=== PATIENT | female | born 1995 | race Caucasian/White ===

== ENCOUNTER → 2019-07-27 14:03 | Outpatient (CLI) | payer OTHER, MEDICAID, SELFPAY ==
[2019-07-27 13:37] VITALS: BMI 29.6
[2019-07-27 14:07] LABS: Mucous, Urine 0 SEEN /hpf (<or=2+)
[2019-07-27 15:03] LABS: Absolute Lymphocyte Count 3.61 X10^3/uL (0.83-4.51); Absolute Neutrophil Count 6.6 X10^3/uL (2.0-7.7); Basophil# 0.02 X10^3/uL; Basophil% 0.2 % (0-1); Eosinophil# 0.13 X10^3/uL; Eosinophils% 1.1 % (0-5); Hematocrit 38.6 % (37-47); Hemoglobin 12.2 g/dL (12.0-15.0); Lymphocyte # 3.61 X10^3/ul (4.0); Lymphocyte % 30.4 % (19-41); Mean Corp Hgb Conc 31.6 g/dL (32-36); Mean Corpuscular Hgb 27.3 pg (27.0-32.0); Mean Corpuscular Volume 86.4 fL (81-99); Mean Platelet Vol. 11.4 fl (6.2-12.0); Monocyte# 1.43 X10^3/uL; Monocyte% 12.1 % (0-10); NRBC Flagged by Analyzer 0 % (0-5); Neutrophil # 6.64 X10^3/uL (2.7-7.7); Neutrophil % 55.9 % (47-70); Platelet Count 322 K/mm3 (150-450); RBC Distribution Width CV 13.1 % (11.6-14.6); RBC Distribution Width SD 41.1 fl (35.1-43.9); Red Blood Count 4.47 M/mm3 (4.2-5.4); White Blood Count 11.9 K/mm3 (4.4-11.0)
[2019-07-27 15:09] LABS: Color, Urine Yellow (Yellow); Glucose, Dipstick Normal (Normal); Ketone-Dipstick Negative (Negative); Leukocyte Esterase-Dipstick 25 /ul (Negative); Nitrite-Dipstick Negative (Negative); Occult Blood-Urine 150 /ul (Negative); Protein-Dipstick 15 mg/dl (Negative); Specific Gravity, Urine 1.025 (1.002-1.030); Urine Bilirubin Dipstick Negative (Negative); Urine Clarity Sl. Cloudy (Clear); Urine Urobilinogen 1 mg/dl (Normal)
[2019-07-27 15:18] LABS: Bacteria 2+ /hpf (None Seen); Red Blood Cells-Urine 10-25 SEEN /hpf (0-5); Squamous Epithelial Cells - UA 0-5 SEEN /hpf (5-10); White Blood Cells 0-5 SEEN /hpf (0-5)
[2019-07-27 15:32] LABS: ALB/GLOB Ratio 0.7 RATIO (0.9-2.4); AST(SGOT) 14 U/L (15-37); Alanine Aminotransfer ALT/SGPT 23 U/L (13-56); Albumin, Serum 3.2 g/dL (3.2-5.0); Alkaline Phosphatase 66 U/L (45-117); Anion Gap 4 (5-15); BUN 8 mg/dL (7-18); BUN/Creat Ratio 12.1 RATIO (10-20); Calcium,Total 9.1 mg/dL (8.5-10.1); Chloride 106 mmol/L (98-107); Creatinine, Serum 0.66 mg/dL (0.55-1.02); EST Glomerular Filtration Rate 116 mL/min (>60); Est Glom Filt Rate - Afr Amer 141 mL/min (>60); Globulin 4.4 g/dL (2.2-4.2); Glucose 86 mg/dL (74-106); Potassium 3.8 mmol/L (3.5-5.1); Protein, Total 7.6 g/dL (6.4-8.2); Sodium Level 139 mmol/L (136-145); T4 Free Direct 0.86 ng/dL (0.76-1.46); Thyroid Stim Hormone (TSH) 1.85 uIU/mL (0.358-3.74)
== END ==
PROVIDERS: PCP Internal Medicine; Referring Provider Internal Medicine; Visit Provider Internal Medicine
DX: L73.2 Hidradenitis suppurativa (principal); F41.9 Anxiety disorder, unspecified; F32.9 Major depressive disorder, single episode, unspecified; F90.9 Attention-deficit hyperactivity disorder, unspecified type; R35.0 Frequency of micturition
CPT/HCPCS: 36415; 80053; 81001; 84439; 84443; 85025

== ENCOUNTER → 2019-08-03 16:20 | Outpatient (CLI) | payer OTHER, MEDICAID, SELFPAY ==
[2019-07-27 16:46] VITALS: BMI 28.8
[2019-08-03 16:27] LABS: Mucous, Urine 0 SEEN /hpf (<or=2+); White Blood Cells 0 SEEN /hpf (0-5)
[2019-08-03 16:47] LABS: Color, Urine Yellow (Yellow); Glucose, Dipstick Normal (Normal); Ketone-Dipstick Negative (Negative); Leukocyte Esterase-Dipstick Negative /ul (Negative); Nitrite-Dipstick Negative (Negative); Occult Blood-Urine 10 /ul (Negative); Protein-Dipstick Negative (Negative); Urine Bilirubin Dipstick Negative (Negative); Urine Clarity Sl. Cloudy (Clear); Urine Urobilinogen Normal (Normal)
[2019-08-03 17:01] LABS: Bacteria RARE /hpf (None Seen); Red Blood Cells-Urine 0-5 SEEN /hpf (0-5); Squamous Epithelial Cells - UA 0-5 SEEN /hpf (5-10)
== END ==
PROVIDERS: PCP Internal Medicine; Referring Provider Internal Medicine; Visit Provider Internal Medicine
DX: R31.9 Hematuria, unspecified (principal)
CPT/HCPCS: 81001

== ENCOUNTER → 2021-03-30 15:32 | Outpatient (CLI) | payer OTHER, MEDICAID, SELFPAY ==
[2021-03-30 16:44] LABS: Absolute Lymphocyte Count 3.37 X10^3/uL (0.83-4.51); Absolute Neutrophil Count 10.9 X10^3/uL (2.0-7.7); Basophil# 0.04 X10^3/uL; Basophil% 0.3 % (0-1); Eosinophil# 0.12 X10^3/uL; Eosinophils% 0.8 % (0-5); Hematocrit 38.1 % (37-47); Hemoglobin 12.1 g/dL (12.0-15.0); Lymphocyte # 3.37 X10^3/ul (0.83-4.51); Lymphocyte % 21.2 % (19-41); Mean Corp Hgb Conc 31.8 g/dL (32-36); Mean Corpuscular Hgb 26.8 pg (27.0-32.0); Mean Corpuscular Volume 84.5 fL (81-99); Mean Platelet Vol. 10.7 fl (6.2-12.0); Monocyte# 1.44 X10^3/uL; NRBC Flagged by Analyzer 0 % (0-5); Neutrophil % 68.4 % (47-70); Platelet Count 405 K/mm3 (150-450); RBC Distribution Width CV 13.2 % (11.6-14.6); RBC Distribution Width SD 41.1 fl (35.1-43.9); Red Blood Count 4.51 M/mm3 (4.2-5.4); White Blood Count 15.9 K/mm3 (4.4-11.0)
[2021-03-30 17:03] LABS: ALB/GLOB Ratio 0.7 RATIO (0.9-2.4); AST(SGOT) 22 U/L (15-37); Alanine Aminotransfer ALT/SGPT 20 U/L (13-56); Albumin, Serum 3.1 g/dL (3.2-5.0); Alkaline Phosphatase 69 U/L (45-117); Anion Gap 5 (5-15); BUN 9 mg/dL (7-18); Calcium,Total 8.9 mg/dL (8.5-10.1); Chloride 104 mmol/L (98-107); Cholesterol 230 mg/dL (200); Creatinine, Serum 0.69 mg/dL (0.55-1.02); EST Glomerular Filtration Rate 109 mL/min (>60); Est Glom Filt Rate - Afr Amer 132 mL/min (>60); Globulin 4.5 g/dL (2.2-4.2); Glucose 119 mg/dL (74-106); High Density Lipoprotein 40 mg/dL; Protein, Total 7.6 g/dL (6.4-8.2); Sodium Level 138 mmol/L (136-145); Triglycerides 205 mg/dL; Very Low Density Lipoprotein 41 mg/dL (5-40)
== END ==
PROVIDERS: PCP Internal Medicine; Referring Provider Internal Medicine; Visit Provider Internal Medicine
DX: F41.9 Anxiety disorder, unspecified (principal); F32.9 Major depressive disorder, single episode, unspecified; E66.3 Overweight
CPT/HCPCS: 36415; 80053; 80061; 85025

== ENCOUNTER 2021-08-06 16:55 | Observation (INO) | payer MEDICAID, SELFPAY ==
[2021-08-06] VITALS (13 sets, daily range): BP systolic 88–127; BP diastolic 55–85; PULSE 73–110; RESP 14–18; TEMP 36.1–37.2; O2SAT 93–99; BMI 29.7
--- NOTE | 2021-08-06 | HID_PTH ---
PATIENT: MIGUEL PYLE LOC: MS3 U#:[id number] AGE/SX: 26/F ROOM: MS316 RE08/06/[address]: Dr. Elvis Littlejohn MD : 1995 BED: 1 DIS: 08/07/2021 SPEC #: [id number] RECD: 08/06/21 15:53 STATUS: OFE REDottie #: [id number] TITO: 08/06/21 00:[address]: Elvis Littlejohn DEPT: SURGICAL PATHOLOGY RECD BY: Enoc Shipley ENTERED: 08/07/21 10:39 SP TYPE: Hidradenit MYAH DR: Dr. Blanche Harmon MD Tissues: Axilla, NOS Procedures: Surgery Specimen Level III HEADER OPERATION: Surgical preparation axilla with excision hidradenitis PRE-OP DIAGNOSIS: Right axilla hidradenitis TISSUE SUBMITTED: Right axilla hidradenitis MICROSCOPIC DIAGNOSIS Skin and soft tissue of right axilla, excision: Consistent with hidradenitis. AM:charlotte 08/08/2021 MICROSCOPIC DESCRIPTION Slides are reviewed. GROSS DESCRIPTION Received in fixative is one container labeled with the patient's name and designated right axilla hidradenitis. The specimen consists of a V-shaped fragment of light anne skin with attached anne-yellow fibrofatty tissue measuring 9.5 x 9 cm and excised to a depth of 2.5 cm. Serial sections do not reveal mass lesions. Toll Bridge Operator sections are submitted in one cassette. / AM:charlotte 08/07/2021 TC:5 CPT: 88971
--- NOTE | 2021-08-06 00:31 | HP.PCM_ITS ---
History and Physical Date of Admission: 08/06/21 HISTORY OF PRESENT ILLNESS 26 year old female presents for a recent flare of hidradenitis of her right axilla, and bilateral inguinal, mons pubis extending onto labia areas. She has a history of excision of her right axilla hidradenitis in 11/04, and excision of left axillary hidradenitis 12/04. She was last seen 2 years ago for a right axilla flare that was treated with antibiotics. She stopped using Augmentin and started on Clindamycin for 10 days. She saw an improvement in her symptoms of the mons pubis area. Her right axilla area where she had the firmness, opened and started to drain. She states she has been doing the sitz baths daily to help with the inguinal/mons pubis areas. She comes in today for further evaluation and treatment. PAST MEDICAL HISTORY ADHD (attention deficit hyperactivity disorder) Anxiety and depression Axillary hidradenitis suppurativa FAS ( alcohol syndrome) Health care maintenance History of stress test Leukocytosis multiple mental health dx Open wound Over weight Recurrent infections Stiffness of right shoulder joint Vulval hidradenitis suppurativa PAST SURGICAL HISTORY H/O oral surgery Hidradenitis axillaris History of adenoidectomy History of incision and drainage History of tonsillectomy ALLERGIES doxycycline codeine latex MEDICATIONS fluoxetine guanfacine bupropion HCl etonogestrel doxycycline hyclate FAMILY HISTORY Unknown No problems noted. SOCIAL HISTORY Smoking Status: Former smoker alcohol intake: current substance use type: does not use REVIEW OF SYSTEMS General - Denies fever, fatigue, and weight loss. Eyes - Denies cataracts and glaucoma. ENT - Denies nasal congestion and sore throat. Endocrine - Denies excessive thirst and urination. Skin - Denies skin cancer. Has a recent flare up hidradenitis right axilla and bilateral inguinal areas and vulval area. Right inguinal area is much more bothersome than her left side. The inguinal/mons pubis areas area improved after the clindamycin antibiotic but her right axilla has further ulceration and drainage with increased pain. Musculoskeletal - Denies joint pain, joint stiffness, weakness of muscles and joints, back pain, and arthritis. Neuro - Denies headaches. Cardiovascular - Denies chest pain, fatigue, and shortness of breath with e xertion. Psych - Denies anxiety and depression. Respiratory - Denies chronic cough and shortness of breath. Patient is former smoker. Gastrointestinal - Denies nausea, vomiting, diarrhea, and constipation. Hematologic - Denies abnormal bruising and bleeding. Genitourinary - Denies hematuria and urinary frequency. PHYSICAL EXAMINATION General - Alert and oriented. HEENT - PERRL. EOMI. Throat is clear. Neck - Supple and non-tender. No cervical adenopathy. Lungs- Clear to auscultation. Heart - Regular rate and rhythm. Abdomen - Soft and non distended. Has bilateral inguinal hidradenitis with less redness and induration with the antibiotics. There is some scabbing along with decreased drainage. There is decreased pain in this area. Vulva - There is bilateral vulval hidradenitis involving the genitocrural area extending to the labia and mons pubis area. Some scabbing. The mons pubis area has improved with the antibiotics. There is decreased drainage. There is decreased pain in this area. Extremities - FROM. No axillary adenopathy. Radial pulses are palpable. No inguinal adenopathy. Right axillary hidradenitis with new ulcer where the firmness previously was located, it is beefy pink and very tender to palpation. Persistent drainage noted. Area has worsening induration. Neuro - CN II-XII grossly intact. Psych - Normal mood and affect. ASSESSMENT 1. Right axilla hidradenitis. 2. Right inguinal hidradenitis. 3. Right vulval hidradenitis involving genitocrural area and mons pubis area. 4. Left inguinal hidradenitis. 5. Left vulval hidradenitis involving genitocrural area and mons pubis area 6. Former smoker. PLAN The recent flare up of hidradenitis in her bilateral inguinal area and bilateral vulval areas has improved with the antibiotics. She also is having a flare in her right axilla that has a firm area lateral to the breakout that is tender to palpation. Persistent drainage noted. Area has worsening induration. No fluctuance noted. She would benefit from excision of her hidradenitis. The most bothersome area would be done first. She states her right axilla has the most pain. Surgery would be done under general anesthesia with a surgical observation overnight stay in the hospital. Tissue would be sent to Pathology for analysis to rule out carcinoma [facility]. A positive culture will necessitate antibiotic therapy. The wound would be left open and will start postoperative wound care with the VAC or with daily Dakin's moistened gauze dressing changes. She completed her 10 day course of Clindamycin with a probiotic and showed improvement in the bilateral inguinal and the bilateral vulval areas involving the mons pubis and genitocrural crease extending to the labia. The right axilla area has worsening painful symptomatology. We will start her on Doxycycline twice daily until the surgery. She has taken this in the past with issues with nausea but she always took it with dairy products, which is contraindicated since it decreased absorption. She is willing to try Doxycycline again to see if this will help improve her symptoms. She will wait a week since she just completed the Clindamycin, but she will continue the probiotic during this time and start her Doxycycline in a week. She will continue daily sitz baths with Epsom salts. Patient was informed of the risks and complications of the procedure including alternatives to surgery. These were discussed with the patient personally. Patient voices understanding and wishes to proceed.necessary. Some of the risks and complications were included in a form from the [place] [employer]. Anticipate increased metabolic demands from the chronic infections. Encourage nutritional supplementation with protein to help the healing process. Followup after her surgery. We discussed the current risks associated with COVID-19. While it is understood that there is a community spread of COVID-19, the risk of curry COVID-19 while at [facility] ([facility]) is very low; however, the risk cannot be completely mitigated because of the community spread of the disease. We discussed in detail the risk of exposure to and/or potential harm posed by the COVID-19 virus with having a surgery/procedure at this time versus the risk of delaying the surgery/procedure. It is not possible to know either the risk of delaying the surgery or procedure or chance of getting an infection with perfect accuracy, but a joint decision was made to proceed at this time with the scheduled surgery/procedure as indicated on the consent form. Patient was notified that we will need to comply with any screening or testing [facility] wishes to perform or that surgery may be delayed for any positive results.
[2021-08-06] MEDS: Lactated Ringers 1,000 ML 15 ML IV ×2 (10:39→15:30)
[2021-08-06 10:48] LABS: Internal QC Validated? YES +Cl - CLEAR BKGD; Pregnancy, Urine Negative Negative
[2021-08-06] MEDS: Cefazolin 2 GM in 0.9% Normal Saline 100 ML IV (14:30)
[2021-08-06] MEDS: Lidocaine 1% /Epi 1:100 (50ml) 50 ML VIAL (14:55)
--- NOTE | 2021-08-06 16:01 | PCM.OPRPT ---
Problems Associated Problem List Diagnoses (1) Axillary hidradenitis suppurativa: (2) Former smoker: (3) Open wound of right axillary region with complication: Report of Operation Date of Procedure: 08/06/21 Pre-Operative Diagnosis: 1. Recurrent right axillary hidradenitis. 2. Open surgical hidradenitis wound right axilla. 3. Former smoker. Surgery/Procedure Performed:: Surgical preparation right axilla with excision recurrent hidradenitis (143 cm2). Description of Surgical Findings:: 26 year old female presents for a recent flare of hidradenitis of her right axilla, and bilateral inguinal, mons pubis extending onto labia areas. She has a history of excision of her right axilla hidradenitis in 11/04, and excision of left axillary hidradenitis 12/04. She was last seen 2 years ago for a right axilla flare that was treated with antibiotics. She stopped using Augmentin and started on Clindamycin for 10 days. She saw an improvement in her symptoms of the mons pubis area. Her right axilla area where she had the firmness, opened and started to drain. She states she has been doing the sitz baths daily to help with the inguinal/mons pubis areas. Patient was informed of the risks and complications of the procedure including alternatives to surgery. These were discussed with the patient personally. Patient voices understanding and wishes to proceed. Some of the risks and complications were included in a form from the [place] [employer]. Size of wound right axilla - 11 x 13 x 3 cm. Surgeon: Elvis Littlejohn hydro plant operator: None Type of Anesthesia: General Specimen's removed: Recurrent right axillary hidradenitis tissue to Pathology and Microbiology. Drains: None. Estimated Blood Loss (mL): 50. Description of Procedure: Patient was taken to OR in supine position and was placed under general anesthesia. The right axilla was prepped and draped in the usual fashion. SCD's were placed for DVT prophylaxis. Perioperative antibiotics were given intravenously. Using xylocaine with epinephrine, the recurrent hidradenitis right axillary area was infiltrated. After waiting 5 minutes for the anesthetic to take effect, I proceeded with surgical preparation right axilla with excision recurrent hidradenitis (143 cm2). Hemostasis was obtained with electrocautery. The wound was irrigated with saline. The excision went down to the muscular fascia. Half the soft tissue was sent to Pathology for analysis to rule out carcinoma. Half the soft tissue was sent to Microbiology for culture. A positive culture will necessitate antibiotic therapy. The size of the hidradenitis wound after surgical excision is 11 x 13 x 3 cm or 143 cm2. The wound was dressed with Mepitel nonadherent dressing followed by Kerlix gauze and Betadine followed by dry Kerlix gauze and ABD pads. Patient tolerated the procedure well and was sent to PACU in satisfactory condition. Patient will be sent upstairs for continued postop care. The wound vac will be placed tomorrow. She can go home once tolerating po pain meds. She will followup at the Wound Center 1-2 weeks after discharge. Grafts/Implants Used: None. Complications None. Admit VTE Documentation VTE Present on Admission: No VTE Mechan Device Prophylaxis: SCD's VTE Pharm Prophylaxis ordered?: Yes Addendum Addendum: Surgery Charges CPT - 07377 ICD-10 - L73.2, S41.101A, Z87.891
[2021-08-06] MEDS: oxyCODONE 5 MG Tablet 10 MG PO (19:34)
[2021-08-06] MEDS: Docusate Sodium 100 MG Capsule PO (21:05)
[2021-08-07 01:58] VITALS: BP 98/60; PULSE 79; RESP 16; TEMP 36.5; O2SAT 97
[2021-08-07] MEDS: oxyCODONE 5 MG Tablet 10 MG PO ×2 (04:11→09:04)
[2021-08-07 05:43] VITALS: BP 108/76; PULSE 80; RESP 16; TEMP 36.6; O2SAT 95
[2021-08-07 06:14] LABS: Hematocrit 34.4 % (37-47); Hemoglobin 10.6 g/dL (12.0-15.0); Mean Corp Hgb Conc 30.8 g/dL (32-36); Mean Corpuscular Hgb 25.9 pg (27.0-32.0); Mean Corpuscular Volume 83.9 fL (81-99); Mean Platelet Vol. 10.1 fl (6.2-12.0); Platelet Count 379 K/mm3 (150-450); RBC Distribution Width CV 13.4 % (11.6-14.6); RBC Distribution Width SD 40.8 fl (35.1-43.9); White Blood Count 16.7 K/mm3 (4.4-11.0)
[2021-08-07 06:45] LABS: Anion Gap 6 (5-15); BUN 8 mg/dL (7-18); BUN/Creat Ratio 14.7 RATIO (10-20); Calcium,Total 8.6 mg/dL (8.5-10.1); Chloride 106 mmol/L (98-107); Creatinine, Serum 0.55 mg/dL (0.55-1.02); EST Glomerular Filtration Rate 143 mL/min (>60); Est Glom Filt Rate - Afr Amer 173 mL/min (>60); Estimated Creatinine Clearance 128.22 ml/min; Glucose 152 mg/dL (74-106); Potassium 4.1 mmol/L (3.5-5.1); Prealbumin 14.9 mg/dL (20.0-40.0); Sodium Level 137 mmol/L (136-145)
[2021-08-07 07:37] VITALS: BP 89/66; PULSE 83; RESP 16; TEMP 37.1; O2SAT 97
[2021-08-07] MEDS: Juven (unflavored) Packet 1 PACKET PO (08:00)
[2021-08-07 08:47] VITALS: O2SAT 97
[2021-08-07] MEDS: 0.9% Saline Lock 10 ML Syringe IV (09:02)
[2021-08-07] MEDS: Ondansetron 4 MG/2 ML Vial IV (09:02)
[2021-08-07 09:09] VITALS: BP 113/67; PULSE 77; RESP 16; TEMP 36.6; O2SAT 97
--- NOTE | 2021-08-07 09:40 | CASEMGMT ---
RN MARGARET Assessment: Face to Face with pt for initial transition planning/care coordination assessment. RN CM introduced self and role at [facility], pt voices understanding and consents to assessment. Pt is A/O x4 and answers all questions appropriately at this time. Pt is getting wound vac placed at this time but agrees to assessment to distract her. Care providers, pharmacy, and demographics verified/updated. Admitting Dx: excision hidradenitis, rt axilla PCP:[facility] Specialists:Annetta, surgeon Preferred Pharmacy: [facility] Retail Insurance: [employer] Prescription Benefit: yes LW/HPOA: Pt denies having a LW/DPOA and denies need for info regarding AD. LNOK: Ai Serrano, mother Living Arrangements: Pt lives with mother, father, 2 siblings, her sister's and her nephew. Pt reports she is I in ADL's and denies concerns at home. Transportation: Pt does not drive. Her mother transports her to medical appts. DME/HHC/SNF: Pt denies having any DME. Pt reports she has had [facility] the past for a wound vac approx 8 years ago. She denies hx of SNF stays. Pt states no concerns with going home at time of dc. Pt will have wound vac on dc. She is aware that [facility] cannot take pt d/t her insurance. Patient was provided a list of [facility] providers including quality and resource use data and consistent with the patient?s preferred geographic region, medical needs, and insurance network. Pt would like to review with her mother. She states she will be staying with her aunt for 2 weeks then will go back home to [place]. She is aware that this RN CM will attempt to find an agency that can service both locations. Pt states no further concerns/needs. CM to follow. Advised pt to ask CM if any further question/concerns/needs arise, voices understanding. Pt Goal: Home with HH Plan: Home with C
--- NOTE | 2021-08-07 10:02 | CASEMGMT ---
Addendum entered by Kenia Lawler 08/07/21 17:15: FRANTZ ROBLES in to pt room to make aware of the pharmacy issue. Pt mother states she will just pay for them. She is aware that if [facility] backdates the coverage to today, [facility] will reimburse the cost of the meds per Yi. Provided pt and mother with [facility] transportation handout as she states this will be a hardship to get to pt to appts. Also made her aware she can check with her insurance to see if she has transportation coverage. Addendum entered by Kenia Lawler 08/07/21 17:00: FRANTZ ROBLES in to pt room, pt mother and aunt present. Made aware of plans for vac changes and gave appt dates for the wound center. Received a tc from [facility] who states that pt insurance is flagging that pt has another primary insurance. Spoke with pt mother who is on the phone with medicaid and has a rep on the line. This RN CM spoke with rep. She states that this is an issue that needs rectified by [facility], which is now closed. Pt had a primary insurance but came off of it in May when she turned 26. Made pt mother aware that the cost of the meds is $75.78. She asks for these meds to be sent to [facility] stating that she has since gotten monthly scripts from them without and issue. TC to Yi at [facility], she states 3 of the meds cannot be trfd as they are narcotics. She called [facility] and was told they will have the same issue if the scripts were received. Addendum entered by Kenia Lawler 08/07/21 16:40: Received tc back from [facility], she states pt is scheduled to go to the wound center on Friday at 2pm and then again on Friday at 1pm. They will do visits twice a week for pt. Spoke with pt nurse to educate pt mother or aunt on NS wet to dry and how to change vac cannister prior to dc. Addendum entered by Kenia Lawler 08/07/21 16:20: Reviewed Catrina's note and spoke with her, the only agency who could not accept pt d/t staffing was [facility]. The rest of the agencies either did not take insurance or did not service pt home address or aunt's address. TC to [facility], spoke with Suhail, he states that they do not have staffing and will not in the future. TC to [facility], left message with Kam to see if pt could see the physician/SAP HANA DEVELOPER one day and have a nurse visit two other times during the week. Will await returned call. TC to [facility] [employer], she states she will call the [facility] to see if pt could have a nurse visit one time per week and only have the vac changed twice a week. She is aware this RN CM has left a message with Kam already. Awaiting returned call. Addendum entered by Kenia Lawler 08/07/21 14:43: Received notification from Dee at [facility], they are unable to accept pt. RN CM in to pt room to make aware of referrals made and unable to accept. Pt mother states that due to special needs family member and the chaos in their home, pt was going to stay with her aunt where the home is quiet and more accessible. Made aware that if pt stayed in [place], it is more likely to find a HHC agency. Mother then asks if pt can go to a snf. Made aware that this RN CM will check on this. Spoke with [facility], pt would not qualify for SNF. Catrina awan assistant track coach will work on finding an accepting agency for [place] with plan for HHC in pt own home. Addendum entered by Kenia Lawler 08/07/21 11:35: Received tc back from [facility], they are unable to staff pt. TC to [facility], spoke with Sebas, they service both locations. She asked for referral to be faxed, done at this time. Original Note: RN CM in to pt room, mother at bedside. Pt mother states pt will [place] [address] [place] [address] for two weeks. They have reviewed the HHC list and do not have a preference of agency other than the agency be able to service both locations. TC to [place], they are unable to staff for a wound vac, tc to [facility], they do not service [place] but can go to [place]. TC to [facility], they service both locations and will review referral. Faxed referral at this time. Will await acceptance.
[2021-08-07] MEDS: levoFLOXacin IV 500 MG/100 ML BAG 100 MG IV (10:34)
[2021-08-07] MEDS: Docusate Sodium 100 MG Capsule PO (10:45)
[2021-08-07] MEDS: Enoxaparin 40 MG/0.4 ML Syringe SC (10:46)
[2021-08-07] MEDS: buPROPion (XL) 150 MG TABLET.XL PO (10:47)
[2021-08-07] MEDS: FLUoxetine 20 MG Capsule 60 MG PO (10:47)
--- NOTE | 2021-08-07 11:50 | WOUNDNOTE ---
wound photo: right axilla
--- NOTE | 2021-08-07 11:59 | WOUNDNOTE ---
home wound VAC approved.
--- NOTE | 2021-08-07 13:14 | PCM.DC ---
Discharge Instructions Diet Discharge Diet: No restrictions (High protein intake) Activity Discharge Activity: May Not Shower (except on wound VAC days, may remove VAC before home health comes to change dressing and shower) Lifting Restrictions: 20 lb weight lifting restriction Keep extremity elevated above heart level: Right Arm Dressing / Incision Call your doctor if your incision/area has: Continuous Slow Oozing, Sudden Increased Bleeding, Increased Pain/ Swelling, Increased Redness, Foul Smelling Discharge and Swelling at the incision site Call your doctor if you observe: Fever of 101 or Higher, Inability to urinate, Inability to have a bowel movement, Shortness of breath, Chest pain, Increased palpitations (irregular heartbeat), Calf discomfort and Uncontrolled pain Additional Dressing/Incision Instructions:: Wound VAC dressing to be changed 3 times per week by home health. May removed the wound VAC dressing before home health comes and shower before the dressing is replaced. At the time of dressing change, wash wound with SOAP and WATER, then reapply the wound VAC at 150 mmHG. Follow Up Care Please Follow Up With: Emely When: At the wound center on Friday08/20/21. [phone]. Questions or concerns before being seen at the wound center, call Emely at Dr. Littlejohn's office [phone] Test Results: Test results from this visit will be discussed in further detail at your follow-up appointment, if applicable. Discharge Plan Admission Admit Date/Time: 08/06/21 16:55 Attending Provider: Elvis Littlejohn Primary Care Provider: Blanche Harmon Discharge Orders/Prescriptions Prescriptions: New promethazine 25 mg Tablet 25 mg PO Q4H PRN PRN (Reason: Nausea/Vomiting) 5 Days Qty: 20 RF: 0 clindamycin HCl 300 mg capsule 300 mg PO TID 10 Days Qty: 30 RF: 0 oxycodone-acetaminophen [Percocet] 5-325 mg tablet 1 tab PO Q4H PRN (Reason: pain (scale score 7-10)) 7 Days Qty: 40 RF: 0 hydromorphone [Dilaudid] 2 mg tablet 2 mg PO Q6H PRN (Reason: pain (scale score 7-10)) 7 Days Qty: 3 RF: 0 diazepam [Valium] 5 mg tablet 5 mg PO BID PRN (Reason: muscle spasm) 7 Days Qty: 14 RF: 0 Continued fluoxetine [Prozac] 20 mg capsule 60 mg PO DAILY RF: 0 guanfacine [Intuniv ER] 4 mg tablet extended release 24 hr 4 mg PO DAILY RF: 0 bupropion HCl [Wellbutrin XL] 150 mg tablet extended release 24 hr 150 mg PO QAM RF: 0 Nexplanon 68 mg implant 1 implant subdermal ONCE RF: 0 Discontinued doxycycline hyclate 100 mg capsule 100 mg PO BID 14 Days Qty: 28 RF: 2 Referrals / Follow Up: Blanche Harmon MD [Primary Care Provider] - Disposition Disposition (needs filled in before D/C Order can be placed): Home, Self Care
--- NOTE | 2021-08-07 13:18 | CASEMGMT ---
Discharge Hotel Breakfast Attendant Called [facility] and they can't review till later since they are in meetings. Reached out to [facility] and they declined. Reached out to [facility] and declined they only take a certain amount of Medicaid patients. Reached out to [facility] and they do service both areas and take traditional medicaid. Will follow up. Catrina Cagle Discharge Hotel Breakfast Attendant
--- NOTE | 2021-08-07 13:20 | PCM.PN.SRG ---
Subjective Subjective Postop #1 Patient sitting up in bed. Patient states pain has been controlled. She has concerns about the wound VAC dressing change and having uncontrolled pain like she did in the past. Objective Data Objective Data Vital Signs: Vital Signs Temp Pulse Resp BP Pulse Ox 97.9 F 77 16 113/67 97 08/07/21 09:09 08/07/21 09:09 08/07/21 09:09 08/07/21 09:09 08/07/21 09:09 Oxygen Flow Rate (L/min) 2 Oxygen Delivery Method Room Air Weight: 167 lb 8.821 oz Body Mass Index (BMI) 29.7 Intake & Output: Intake and Output for Last 24 Hours 08/05/21 08/06/21 08/07/21 23:59 23:59 23:59 Intake Total 1529 / 1529 154 / 154 Output Total 500 / 500 Balance 1529 / 1529 -346 / -346 Lab / Micro Data Result Diagrams: 08/07/21 06:05 08/07/21 06:05 Labs: Laboratory Results - last 24 hr 08/07/21 06:05: WBC 16.7 H, RBC 4.10 L, Hgb 10.6 L, Hct 34.4 L, MCV 83.9, MCH 25.9 L, MCHC 30.8 L, RDW Std Deviation 40.8, RDW Coeff of Rik 13.4, Plt Count 379, MPV 10.1 08/07/21 06:05: Sodium 137, Potassium 4.1, Chloride 106, Carbon Dioxide 25.0, Anion Gap 6, BUN 8, Creatinine 0.55, Estim Creat Clear Calc 128.22, Est GFR (MDRD) Af Amer 173, Est GFR (MDRD) Non-Af 143, BUN/Creatinine Ratio 14.7, Glucose 152 H, Calcium 8.6, Prealbumin 14.9 L Micro: Microbiology 08/06/21 15:00 Tissue - Axilla, Right Gram Stain - Final 08/06/21 15:00 Tissue - Axilla, Right Wound Culture - Preliminary No growth-Final to follow 08/02/21 14:15 Interface Orders SARS-CoV-2 Antigen (Rapid) - Final Assessment & Plan Assessment/Plan (1) Axillary hidradenitis suppurativa: (2) Hidradenitis: (3) Vulval hidradenitis suppurativa: (4) Former smoker: PLAN: Patient doing well. Pain controlled with oral pain meds. She has no active bleeding. She has tolerated the wound VAC dressing change. She has concerns about her pain control with the VAC dressing change, will prescribe Hydromorphone for the dressing changes only. She will have Percocet to help with her surgical pain. The Diazepam is for muscle spasms, especially with the wound VAC. Encouraged patient to get up and ambulate. Lifting restriction of 20 lbs. Operative wound cultures pending. Will prescribe Clindamycin TID. May have to change antibiotics depending on the results of the cultures. Pre albumin 14.9, encouraged increase protein intake to help with wound healing. Wound VAC dressing to be changed 3 times per week by home health. May removed the wound VAC dressing before home health comes and shower before the dressing is replaced. At the time of dressing change, wash wound with SOAP and WATER, then reapply the wound VAC at 150 mmHg. She will follow up at the wound center on Friday08/20/21 due to transportation issues, she is not able to be seen next Friday. Charges/Coding Procedures Integumentary 111xxx-113xx: [id number] Global Visit
[2021-08-07 13:54] VITALS: BP 104/64; PULSE 81; RESP 16; TEMP 36.8; O2SAT 100
--- NOTE | 2021-08-07 14:11 | CASEMGMT ---
Addendum entered by Catrina Cagle 08/07/21 15:37: [facility]: is not taking medcaid at this moment. Addendum entered by Catrina Cagle 08/07/21 15:34: [facility] is not in servicing either areas. [facility] is taking medicaid but, does not service either areas. Addendum entered by Catrina Cagle 08/07/21 15:10: Called N[facility]: is not servicing in either area. [facility]: Will only see patient for PT. [facility]:Not servicing in either area. [facility]:Kevin did not answer. Left a [facility]: Not excepting medicaid at this time. Addendum entered by Catrina Cagle 08/07/21 15:09: [facility]. [facility] will not take medicaid Addendum entered by Catrina Cagle 08/07/21 15:03: Reached out to Ysabel at [facility]. Wanted to see if they would service her in [place], [place]. They said not at this time. I called [facility] and they only service [facility]. I called [facility] and they are not taking medicaid at this time. Original Note: Discharge Regulatory Consultant I have called the following: [facility] [employer] [facility] [place] [facility] [place] [facility] [place] [facility] None of these places are either not taking medicaid or they do not have the staff. Will let MARGARET Aquino know. Catrina Cagle Discharge Regulatory Consultant
--- NOTE | 2021-08-07 14:30 | CASEMGMT ---
Social Work Note SHANE was asked by RN MARGARET if pt would qualify for SNF placement. SHANE placed a call to Elda at [facility]. Without providing any information regarding pt, Elda states wound vac changes would likely not be enough to get level of care under Medicaid for pt. SHANE updated FRANTZ ROBLES. Vero Rodriguez WALLPAPER INSPECTOR AND SHIPPER, DIRECTOR OPERATING ROOM
--- NOTE | 2021-08-07 15:02 | NURSING ---
student charting reviewed by Adri RN, instructor
== END 2021-08-07 18:19 | disposition home or self-care (01) ==
LOC: SDC 17:35 → MS3 17:35
PROVIDERS: Anesthesiology; Admitting Provider Surgery; PCP Internal Medicine; Referring Provider Surgery; Visit Provider Surgery
PROC: (CPT 11450; principal; 2021-08-06 11:30)
DX: L73.2 Hidradenitis suppurativa (principal); Z87.891 Personal history of nicotine dependence; F41.8 Other specified anxiety disorders; Z79.899 Other long term (current) drug therapy; F90.9 Attention-deficit hyperactivity disorder, unspecified type; Q86.0 Fetal alcohol syndrome (dysmorphic)
CPT/HCPCS: 11450; 00400; J2405; 36415; 80048; 81025; 84134; 85027; 87070; 87075; 87077; 87102; 87205; 87206; 87426; 88304; 96365; 96366; 96367; 96372; 96375; 99218; J7040; J7120; A4216; G0378

== ENCOUNTER 2021-08-23 13:00 | Outpatient (RCR) | payer MEDICAID, SELFPAY ==
[2021-08-10 14:23] VITALS: BP 139/110; PULSE 123; RESP 20; TEMP 37
[2021-08-13 13:15] VITALS: BP 93/55; PULSE 97; RESP 16; TEMP 35.8; BMI 26.5
--- NOTE | 2021-08-13 14:07 | PN.PCM_ITS ---
History of Present Illness Date of Service: 08/13/21 Chief Complaint: Right axillary hidradenitis History of Wound: 26 year old female presents for a recent flare of hidradenitis of her right axilla, and bilateral inguinal, mons pubis extending onto labia areas. She has a history of excision of her right axilla hidradenitis in 11/04, and excision of left axillary hidradenitis 12/04. She was last seen 2 years ago for a right axilla flare that was treated with antibiotics. She stopped using Augmentin and started on Clindamycin for 10 days. She saw an improvement in her symptoms of the mons pubis area. Her right axilla area where she had the firmness, opened and started to drain. She states she has been doing the sitz baths daily to help with the inguinal/mons pubis areas. Surgery 08/06/21 - Surgical preparation right axilla with excision recurrent hidradenitis (143 cm2). Size of wound right axilla - 11 x 13 x 3 cm. Wound care - Wound VAC at 150 mmHg to be changed twice per week. Will have adaptic placed in the base of wound bed for the next week until pain is better controlled. She is coming into the wound center for the vac changes since we were unable to find her any home health to do the wound VAC changes at home. Today she denies fever and nausea and vomiting. She does not have much appetite. Her mother is having her drink protein shakes. Progress of Wound: Right axilla is beefy pink. She is very painful with VAC changes. Objective Data Objective Data Vital Signs: Vital Signs Temp Pulse Resp BP 96.4 F L 97 16 93/55 L 08/13/21 13:15 08/13/21 13:15 08/13/21 13:15 08/13/21 13:15 Oxygen Delivery Method Room Air Weight: 150 lb Body Mass Index (BMI) 26.5 Charges/Coding Procedures Integumentary 111xxx-113xx: [id number] Global Visit Physical Exam Const alert and oriented x3 General Appearance: cooperative HEENT normocephalic Resp normal respiratory effort and clear to auscultation bilaterally Cardio regular rate and regular rhythm GI non-tender Palpation: soft Extremity normal capillary refill Skin Wound Narrative: Right axilla ulcer is beefy pink. She is very painful with the removing of the vac dressing. She has good range of motion in her right shoulder. Neuro CN's II-XII intact bilaterally Psych Appearance: grossly normal Debridement Note Debridement Note No debridement was completed: No debridement was completed today Post-Debridement Measurements and Additional Note: Post-Debridement Measurements/Treatment - Nurse 1 - General Ulcer Assessment Start: 08/10/21 14:09 Freq: Status: Active Protocol: EDUAR.LOWEXJean Marie Activity Type Activity Date Activity User E-Sign Co-Sign Detail Recorded Client Recorded Date Recorded By Document 08/10/21 14:23 DL [id number] 08/10/21 14:39 DL Document 08/13/21 13:15 BM [id number] 08/13/21 13:28 BMF 08/10/21 08/13/21 14:23 13:15 WC - Today's Visit Information Type of service Nurse-only Initial Visit Visit Arrival Mode Ambulatory Ambulatory Transfer Assistance None None Accompanied by mom Patient Identification Verified (Name & Yes Yes ) Patient Requires Transmission-Based No No Precautions Height and Weight Height 5 ft 3 in Weight 150 lb Weight in Pounds 150.0 lbs Weight Measurement Method Estimated by Patient Body Mass Index (BMI) 26.5 BMI Classification Overweight BSA - Ale 1.71 Vital Signs Temperature (97.8 F-99.1 F) 98.6 F 96.4 F L Temperature Source Temporal Temporal Pulse Rate (60-100) 123 H 97 Pulse Location Monitor Monitor Respiratory Rate (12-18) 20 H 16 Respiratory rate source Observation Observation Oxygen Delivery Method Room Air Blood Pressure (90/60-120/80) 139/110 H 93/55 L Blood Pressure Mean (mm Hg) 119 67 Source Monitor Monitor Position Sitting Comment pt took dilaudid prior to visit, per her mom History Since Last Visit- (Skip if this is Patient's initial visit) Left Footwear Slipper Right Footwear Slipper Pain Scale: 0-10 Numeric Is Patient Pain Free? No No #1 R Axilla -Description Sharp Sharp -Intensity 4 10 -Duration (hours) Acute Acute -Pain Behavior Moaning, Facial Guarding, Grimacing Withdrawal from Touch,Facial Grimacing -Pain Aggravating Factors Sitting -Alleviating Factors/Interventions Medication Distraction, Will continue to monitor, Patient denies need for intervention, Emotional Support -Effectiveness of Alleviating Factor/ Moderately Intervention effective -Comments Pain with pt took dressing change dilaudid prior to visit WC - Nurse 1 - General Ulcer Measurement Start: 08/10/21 14:09 Freq: Status: Active Protocol: Activity Type Activity Date Activity User E-Sign Co-Sign Detail Recorded Client Recorded Date Recorded By Document 08/10/21 14:23 DL [id number] 08/10/21 14:39 DL Document 08/13/21 13:15 [facility] [id number] 08/13/21 13:28 BMF 08/10/21 08/13/21 14:23 13:15 Wound Center Nurse 1 #1 R Axilla -Combined with other wound No -Current Size (cm) - Length 5 -Current Size (cm) - Width 16.2 -Current Size (cm) - Depth 3.1 -Total Square Cm 81.0 -Date of Last Picture (Recall this 08/13/21 field) -Photo Taken Yes -Epithelialization None Present -Tunneling No -Undermining/Tunneling No -Circular Undermining No -Classification - Thickness Full Thickness without Exposed Support Structure -Exudate Amt Medium Medium -Exudate Type Serosanguineous Serosanguineous -Wound Margin Distinct, Distinct, Outline Outline Attached Attached -Granulation Amt Large (67-100%) Medium (34-66%) -Granulation Quality Red Red -Slough/Fibrin Yes -Necrosis Amt Small (1-33%) Medium (34-66%) -Necrotic Tissue Type Adherent Slough Adherent Slough -Structure Exposed N/A -Texture (Ade-wound Skin Appearance) No Abnormality Assessed -Moisture (Ade-wound Skin Appearance) No Abnormality Assessed -Color (Ade-wound Skin Appearance) No Abnormality Assessed -Temperature (Ade-wound Skin No Abnormality No Abnormality Appearance) (Pt Warm) (Pt Warm) -Tenderness on Palpation (Ade-wound Yes Yes Skin Appearance) -Ulcer Cleansing Soap and Water Soap and Water -Foul Odor after Cleansing No No -Anesthetic Used 4% Lidocaine Solution EDUAR - Nurse 2 - General Ulcer CM Notes Start: 08/10/21 14:09 Freq: Status: Active Protocol: Activity Type Activity Date Activity User E-Sign Co-Sign Detail Recorded Client Recorded Date Recorded By Document 08/13/21 13:38 [id number] 08/13/21 13:39 JF 08/13/21 13:38 Wound Center Nurse 2 -Correct Patient No -Correct Side, Site, Position No -Correct Procedure No -Procedure Performed No -Wound/Ulcer Outcome Not Healed Pain Scale: 0-10 Numeric Is Patient Pain Free? Yes WC - Nurse 3 - General Ulcer D/C NN Start: 08/10/21 14:09 Freq: Status: Active Protocol: Activity Type Activity Date Activity User E-Sign Co-Sign Detail Recorded Client Recorded Date Recorded By Document 08/10/21 14:23 DL [id number] 08/10/21 14:39 DL Document 08/13/21 14:03 KR [id number] 08/13/21 14:04 KR 08/10/21 08/13/21 14:23 14:03 Vital Signs Temperature (97.8 F-99.1 F) 98.6 F Temperature Source Temporal Pulse Rate (60-100) 123 H Pulse Location Monitor Respiratory Rate (12-18) 20 H Respiratory rate source Observation Blood Pressure (90/60-120/80) 139/110 H Blood Pressure Mean (mm Hg) 119 Source Monitor Pain Scale: 0-10 Numeric Is Patient Pain Free? No Yes #1 R Axilla -Description Sharp -Intensity 4 -Duration (hours) Acute -Pain Behavior Moaning, Guarding, Withdrawal from Touch,Facial Grimacing -Alleviating Factors/Interventions Medication -Effectiveness of Alleviating Factor/ Moderately Intervention effective -Comments Pain with dressing change Wound Care Nurse 3 #1 R Axilla -Ulcer Cleansing Soap and Water Soap and Water -Foul Odor after Cleansing No -Negative Pressure Wound Therapy Continue -Setting (mmHg) 150 150 -Negative Pressure is Continuous Continuous -Primary Dressing Applied NonAdherent Contact Layer -NPWT Application Charge NPWT </= 50 sq cm ($) Treatment Response Procedure Tolerated Well WC - Visit Discharge Discharge Condition Stable Stable Ambulatory Status Ambulatory Ambulatory Transportation Private Auto Private Auto Accompanied by mother Mother Assessment/Plan Assessment/Plan (1) Open wound of right axillary region with complication: CODE(S): S41.101A - Unspecified open wound of right upper arm, initial encounter (2) Other acute postprocedural pain: CODE(S): G89.18 - Other acute postprocedural pain (3) Axillary hidradenitis suppurativa: CODE(S): L73.2 - Hidradenitis suppurativa (4) Hidradenitis: CODE(S): L73.2 - Hidradenitis suppurativa (5) Vulval hidradenitis suppurativa: CODE(S): L73.2 - Hidradenitis suppurativa (6) Former smoker: CODE(S): Z87.891 - Personal history of nicotine dependence PLAN: Wound care - Wound VAC at 150 mmHg to be changed twice per week. Will have adaptic placed in the base of wound bed for the next week until pain is better controlled. She is coming into the wound center for the vac changes since we were unable to find her any home health to do the wound VAC changes at home. Preliminary operative cultures have no bacterial growth. She is to continue the Clindamycin. Pathology was consistent with hidradenitis. Will renew her Dilaudid 2 mg for dressing changes (2 tabs). Will start her on Ibuprofen every 6 hours as needed for pain because she is afraid to take the narcotic pain meds except at the dressing change. She is to take this with food. Renewed her Acidophilus. Follow up on or Friday for a VAC change. Follow up one week to see me.
[2021-08-16 13:48] VITALS: BP 125/76; PULSE 105; RESP 18; TEMP 36.6; BMI 26.5
[2021-08-20 14:29] VITALS: BP 113/69; PULSE 96; RESP 20; TEMP 36.6; BMI 26.5
--- NOTE | 2021-08-20 15:23 | PCM.WC.PN ---
History of Present Illness Date of Service: 08/20/21 Chief Complaint: Right axillary hidradenitis History of Wound: 26 year old female presents for a recent flare of hidradenitis of her right axilla, and bilateral inguinal, mons pubis extending onto labia areas. She has a history of excision of her right axilla hidradenitis in 11/04, and excision of left axillary hidradenitis 12/04. She was last seen 2 years ago for a right axilla flare that was treated with antibiotics. She stopped using Augmentin and started on Clindamycin for 10 days. She saw an improvement in her symptoms of the mons pubis area. Her right axilla area where she had the firmness, opened and started to drain. She states she has been doing the sitz baths daily to help with the inguinal/mons pubis areas. Surgery 08/06/21 - Surgical preparation right axilla with excision recurrent hidradenitis (143 cm2). Size of wound right axilla - 11 x 13 x 3 cm. Wound care - Wound VAC at 150 mmHg to be changed twice per week. Will have adaptic placed in the base of wound bed for the next week until pain is better controlled. She is coming into the wound center for the vac changes since we were unable to find her any home health to do the wound VAC changes at home. Today she denies fever and nausea and vomiting. She does not have much appetite. Her mother is having her drink protein shakes. Progress of Wound: Right axilla is beefy pink. She continues to be very painful with VAC changes. Objective Data Objective Data Vital Signs: Vital Signs Temp Pulse Resp BP 97.9 F 96 20 H 113/69 08/20/21 14:29 08/20/21 14:29 08/20/21 14:29 08/20/21 14:29 Oxygen Delivery Method Room Air Weight: 150 lb Body Mass Index (BMI) 26.5 Charges/Coding Procedures Integumentary 111xxx-113xx: 02344 Global Visit Physical Exam Const alert and oriented x3 General Appearance: cooperative HEENT normocephalic Head and Scalp: atraumatic Resp normal respiratory effort Cardio regular rate GI non-tender Palpation: soft Extremity normal capillary refill Skin Wound Narrative: Right axillary wound is beefy pink. Very tender palpation. Neuro CN's II-XII intact bilaterally Psych Appearance: well kempt Debridement Note Debridement Note Wound debrided: Axillary Laterality: Right No debridement was completed: No debridement was completed today Post-Debridement Measurements and Additional Note: Post-Debridement Measurements/Treatment WC - Nurse 1 - General Ulcer Assessment Start: 08/10/21 14:09 Freq: Status: Active Protocol: AGUSTIN Activity Type Activity Date Activity User E-Sign Co-Sign Detail Recorded Client Recorded Date Recorded By Document 08/10/21 14:23 DL [id number] 08/10/21 14:39 DL Document 08/13/21 13:15 BMF [id number] 08/13/21 13:28 BMF Document 08/16/21 13:48 RB [id number] 08/16/21 13:51 RB Document 08/20/21 14:29 DL [id number] 08/20/21 14:38 DL 08/10/21 08/13/21 08/16/21 14:23 13:15 13:48 - Today's Visit Information Type of service Nurse-only Initial Visit Nurse-only Visit Visit Arrival Mode Ambulatory Ambulatory Ambulatory Transfer Assistance None None None Accompanied by mom Patient Identification Verified (Name & Yes Yes Yes ) Patient Requires Transmission-Based No No No Precautions Height and Weight Height 5 ft 3 in Weight 150 lb Weight in Pounds 150.0 lbs Weight Measurement Method Estimated by Patient Body Mass Index (BMI) 26.5 26.5 BMI Classification Overweight Overweight BSA - Ale 1.71 Vital Signs Temperature (97.8 F-99.1 F) 98.6 F 96.4 F L 97.8 F Temperature Source Temporal Temporal Temporal Pulse Rate (60-100) 123 H 97 105 H Pulse Location Monitor Monitor Monitor Respiratory Rate (12-18) 20 H 16 18 Respiratory rate source Observation Observation Observation Oxygen Delivery Method Room Air Blood Pressure (90/60-120/80) 139/110 H 93/55 L 125/76 H Blood Pressure Mean (mm Hg) 119 67 92 Source Monitor Monitor Monitor Position Sitting Supine Blood Pressure Location Left Arm Comment pt took dilaudid prior to visit, per her mom Have you changed medications since your No last visit? Any new allergies or adverse reactions No Had a fall/change in ADL's that may No increase risk of falls Signs or symptoms of abuse and/or No neglect since last visit Have you been in the hospital since your No last visit? Has dressing in place as prescribed Yes Has compression in place as prescribed No Has offloadiing in place as prescribed No Experienced any changes in pain level or No management History Since Last Visit- (Skip if this is Patient's initial visit) Left Footwear Slipper Right Footwear Slipper Pain Scale: 0-10 Numeric Is Patient Pain Free? No No Yes #1 R Axilla -Description Sharp Sharp -Intensity 4 10 -Duration (hours) Acute Acute -Pain Behavior Moaning, Facial Guarding, Grimacing Withdrawal from Touch,Facial Grimacing -Pain Aggravating Factors Sitting -Alleviating Factors/Interventions Medication Distraction, Will continue to monitor, Patient denies need for intervention, Emotional Support -Effectiveness of Alleviating Factor/ Moderately Intervention effective -Comments Pain with pt took dressing change dilaudid prior to visit 08/20/21 14:29 WC - Today's Visit Information Type of service Follow-up Visit (Physician/PHARMACY OPERATIONS SPECIALIST ) Arrival Mode Ambulatory Transfer Assistance None Accompanied by Patient Identification Verified (Name & Yes ) Patient Requires Transmission-Based No Precautions Height and Weight Height Weight Weight in Pounds Weight Measurement Method Body Mass Index (BMI) 26.5 BMI Classification Overweight BSA - Ale Vital Signs Temperature (97.8 F-99.1 F) 97.9 F Temperature Source Oral Pulse Rate (60-100) 96 Pulse Location Apical Respiratory Rate (12-18) 20 H Respiratory rate source Oxygen Delivery Method Blood Pressure (90/60-120/80) 113/69 Blood Pressure Mean (mm Hg) 83 Source Monitor Position Blood Pressure Location Comment Have you changed medications since your No last visit? Any new allergies or adverse reactions No Had a fall/change in ADL's that may No increase risk of falls Signs or symptoms of abuse and/or No neglect since last visit Have you been in the hospital since your No last visit? Has dressing in place as prescribed Yes Has compression in place as prescribed N/A Has offloadiing in place as prescribed N/A Experienced any changes in pain level or No management History Since Last Visit- (Skip if this is Patient's initial visit) Left Footwear Right Footwear Pain Scale: 0-10 Numeric Is Patient Pain Free? Yes #1 R Axilla -Description -Intensity -Duration (hours) -Pain Behavior -Pain Aggravating Factors -Alleviating Factors/Interventions -Effectiveness of Alleviating Factor/ Intervention -Comments WC - Nurse 1 - General Ulcer Measurement Start: 08/10/21 14:09 Freq: Status: Active Protocol: Activity Type Activity Date Activity User E-Sign Co-Sign Detail Recorded Client Recorded Date Recorded By Document 08/10/21 14:23 DL [id number] 08/10/21 14:39 DL Document 08/13/21 13:15 BMF [id number] 08/13/21 13:28 BMF Document 08/20/21 14:29 DL [id number] 08/20/21 14:38 DL 08/10/21 08/13/21 08/20/21 14:23 13:15 14:29 Wound Center Nurse 1 #1 R Axilla -Combined with other wound No -Current Size (cm) - Length 5 17.5 -Current Size (cm) - Width 16.2 5 -Current Size (cm) - Depth 3.1 2.2 -Total Square Cm 81.0 87.5 -Date of Last Picture (Recall this 08/13/21 field) -Photo Taken Yes No -Epithelialization None Present -Tunneling No -Undermining/Tunneling No -Circular Undermining No -Classification - Thickness Full Thickness without Exposed Support Structure -Exudate Amt Medium Medium Medium -Exudate Type Serosanguineous Serosanguineous Serosanguineous -Wound Margin Distinct, Distinct, Distinct, Outline Outline Outline Attached Attached Attached -Granulation Amt Large (67-100%) Medium (34-66%) Large (67-100%) -Granulation Quality Red Red Red -Slough/Fibrin Yes -Necrosis Amt Small (1-33%) Medium (34-66%) Small (1-33%) -Necrotic Tissue Type Adherent Slough Adherent Slough Adherent Slough -Structure Exposed N/A N/A -Texture (Ade-wound Skin Appearance) No Abnormality Assessed Scarring -Moisture (Ade-wound Skin Appearance) No Abnormality Assessed No Abnormality -Color (Ade-wound Skin Appearance) No Abnormality Assessed No Abnormality -Temperature (Ade-wound Skin No Abnormality No Abnormality No Abnormality Appearance) (Pt Warm) (Pt Warm) (Pt Warm) -Tenderness on Palpation (Ade-wound Yes Yes No Skin Appearance) -Ulcer Cleansing Soap and Water Soap and Water Soap and Water -Foul Odor after Cleansing No No No -Anesthetic Used 4% Lidocaine 4% Lidocaine Solution Solution - Nurse 2 - General Ulcer CM Notes Start: 08/10/21 14:09 Freq: Status: Active Protocol: Activity Type Activity Date Activity User E-Sign Co-Sign Detail Recorded Client Recorded Date Recorded By Document 08/13/21 13:38 [id number] 08/13/21 13:39 Document 08/20/21 14:43 [id number] 08/20/21 14:44 08/13/21 08/20/21 13:38 14:43 Wound Center Nurse 2 #1 R Axilla -Correct Patient No No -Correct Side, Site, Position No No -Correct Procedure No No -Procedure Performed No No -Wound/Ulcer Outcome Not Healed Not Healed Pain Scale: 0-10 Numeric Is Patient Pain Free? Yes Yes - Nurse 3 - General Ulcer D/C NN Start: 08/10/21 14:09 Freq: Status: Active Protocol: Activity Type Activity Date Activity User E-Sign Co-Sign Detail Recorded Client Recorded Date Recorded By Document 08/10/21 14:23 DL [id number] 08/10/21 14:39 DL Document 08/13/21 14:03 KR [id number] 08/13/21 14:04 KR Edit Result 08/13/21 14:03 KR (1) [id number] 08/14/21 07:21 PL Document 08/16/21 13:48 RB [id number] 08/16/21 13:51 RB Document 08/20/21 15:06 DL [id number] 08/20/21 15:07 DL (1) #1 R Axilla - Negative Pressure Wound Therapy => Continue - NPWT Application Charge => NPWT > 50 sq cm ($ => ) 08/10/21 08/13/21 08/16/21 14:23 14:03 13:48 Vital Signs Temperature (97.8 F-99.1 F) 98.6 F 97.8 F Temperature Source Temporal Temporal Pulse Rate (60-100) 123 H 105 H Pulse Location Monitor Monitor Respiratory Rate (12-18) 20 H 18 Respiratory rate source Observation Observation Blood Pressure (90/60-120/80) 139/110 H 125/76 H Blood Pressure Mean (mm Hg) 119 92 Source Monitor Monitor Position Supine Blood Pressure Location Left Arm Pain Scale: 0-10 Numeric Is Patient Pain Free? No Yes Yes #1 R Axilla -Description Sharp -Intensity 4 -Duration (hours) Acute -Pain Behavior Moaning, Guarding, Withdrawal from Touch,Facial Grimacing -Alleviating Factors/Interventions Medication -Effectiveness of Alleviating Factor/ Moderately Intervention effective -Comments Pain with dressing change Wound Care Nurse 3 #1 R Axilla -Ulcer Cleansing Soap and Water Soap and Water Wound Cleanser -Foul Odor after Cleansing No -Negative Pressure Wound Therapy Continue Continue Continue -Setting (mmHg) 150 150 150 -Negative Pressure is Continuous Continuous Continuous -Regranex (If Applicable) -Primary Dressing Applied NonAdherent Contact Layer -NPWT Application Charge NPWT </= 50 sq NPWT > 50 sq cm NPWT > 50 sq cm cm ($) ($) ($) Treatment Response Procedure Procedure Tolerated Well Tolerated Well WC - Visit Discharge Discharge Condition Stable Stable Stable Ambulatory Status Ambulatory Ambulatory Ambulatory Transportation Private Auto Private Auto Private Auto Accompanied by mother Mother Medication Reconcilliation completed & No provided to patient/care provider Clinical Summary of Care Provided Yes 08/20/21 15:06 Vital Signs Temperature (97.8 F-99.1 F) Temperature Source Pulse Rate (60-100) Pulse Location Respiratory Rate (12-18) Respiratory rate source Blood Pressure (90/60-120/80) Blood Pressure Mean (mm Hg) Source Position Blood Pressure Location Pain Scale: 0-10 Numeric Is Patient Pain Free? Yes #1 R Axilla -Description -Intensity -Duration (hours) -Pain Behavior -Alleviating Factors/Interventions -Effectiveness of Alleviating Factor/ Intervention -Comments Wound Care Nurse 3 #1 R Axilla -Ulcer Cleansing Soap and Water -Foul Odor after Cleansing No -Negative Pressure Wound Therapy Continue -Setting (mmHg) 150 -Negative Pressure is -Regranex (If Applicable) Start -Primary Dressing Applied -NPWT Application Charge NPWT </= 50 sq cm ($) Treatment Response Procedure Tolerated Well WC - Visit Discharge Discharge Condition Stable Ambulatory Status Ambulatory Transportation Private Auto Accompanied by parent Medication Reconcilliation completed & provided to patient/care provider Clinical Summary of Care Provided Assessment/Plan Assessment/Plan (1) Axillary hidradenitis suppurativa: CODE(S): L73.2 - Hidradenitis suppurativa (2) Open wound of right axillary region with complication: CODE(S): S41.101A - Unspecified open wound of right upper arm, initial encounter (3) Other acute postprocedural pain: CODE(S): G89.18 - Other acute postprocedural pain (4) Former smoker: CODE(S): Z87.891 - Personal history of nicotine dependence PLAN: Wound care - Wound VAC at 150 mmHg to be changed twice per week. Will have adaptic placed in the base of wound bed for the next week until pain is better controlled. She is coming into the wound center for the vac changes since we were unable to find her any home health to do the wound VAC changes at home. She is to take Hydromorphone 2 mg one hour before her wound VAC dressing change to help with pain control. Operative cultures positive for Anaerobic cocci and Clostridium clostridioforme. She will stop the Clindamycin and start Flagyl. Pathology was consistent with hidradenitis. Will renew her Dilaudid 2 mg for dressing changes (3 tabs). Continue Ibuprofen every 6 hours as needed for pain because she is afraid to take the narcotic pain meds except at the dressing change. She is to take this with food. Renewed Valium (14 tabs). Follow up on or Friday for a VAC change. Follow up one week to see me.
[2021-08-23 13:22] VITALS: BP 95/51; PULSE 91; RESP 20; TEMP 36.2; BMI 26.5
== END 2021-08-23 23:59 | disposition home or self-care (01) ==
LOC: WC 13:00
PROVIDERS: PCP Internal Medicine; Visit Provider Nurse Practitioner Family
DX: L73.2 Hidradenitis suppurativa (principal); Z87.891 Personal history of nicotine dependence; S41.101D Unspecified open wound of right upper arm, subsequent encounter; X58.XXXD Exposure to other specified factors, subsequent encounter
CPT/HCPCS: 97605; 97606; 99213; G0463

== ENCOUNTER 2021-09-17 14:45 | Outpatient (RCR) | payer MEDICAID, SELFPAY ==
[2021-08-24 00:51] VITALS: BP 95/51; PULSE 91; RESP 20; TEMP 36.2; BMI 26.5
[2021-08-27 13:52] VITALS: TEMP 37.4; BMI 26.5
--- NOTE | 2021-08-27 15:30 | PCM.WC.PN ---
History of Present Illness Date of Service: 08/27/21 Chief Complaint: Right axillary hidradenitis ulcer after excision History of Wound: 26 year old female presents for a recent flare of hidradenitis of her right axilla, and bilateral inguinal, mons pubis extending onto labia areas. She has a history of excision of her right axilla hidradenitis in 11/04, and excision of left axillary hidradenitis 12/04. She was last seen 2 years ago for a right axilla flare that was treated with antibiotics. She stopped using Augmentin and started on Clindamycin for 10 days. She saw an improvement in her symptoms of the mons pubis area. Her right axilla area where she had the firmness, opened and started to drain. She states she has been doing the sitz baths daily to help with the inguinal/mons pubis areas. Surgery 08/06/21 - Surgical preparation right axilla with excision recurrent hidradenitis (143 cm2). Size of wound right axilla - 11 x 13 x 3 cm. Wound care - Will take a wound VAC break due to her ade wound excoriation. Will do wet to dry Dakin's moistened gauze to the wound and top with super absorber/ABD daily and as needed. May need to change the outer dressing more frequently depending on how much she is draining. She is coming into the wound center for the vac changes since we were unable to find her any home health to do the wound VAC changes at home. We will again to find home health. Today she denies fever and nausea and vomiting. She does not have much appetite. Her mother is having her drink protein shakes. Progress of Wound: Right axilla wound is beefy pink. Her ade wound is red and excoriated and very painful to palpation. Objective Data Objective Data Vital Signs: Vital Signs Temp Pulse Resp BP 99.4 F H 91 20 H 95/51 L 08/27/21 13:52 08/24/21 00:51 08/24/21 00:51 08/24/21 00:51 Weight: 150 lb Body Mass Index (BMI) 26.5 Charges/Coding Procedures Integumentary 111xxx-113xx: 27630 Global Visit Physical Exam Const alert and oriented x3 HEENT normocephalic Resp normal respiratory effort Cardio regular rate Skin Wound Narrative: Right axilla wound is beefy pink, ade wound is excoriated, pink and painful to palpation. Neuro CN's II-XII intact bilaterally Psych Appearance: grossly normal Debridement Note Debridement Note Wound debrided: axilla wound Laterality: Right Wound Grade/Stage: Stage IV Type of Debridement: Excisional debridement Anesthesia Used: 5% Lidocaine Gel Depth: Down to and including healthy tissue and in the subcutaneous layer Percentage of wound debrided: 100 Instrument Used: 7mm curette Tissue Removed: Nonviable tissue and slough Severity: Fat Layer Exposed Amount of bleeding with debridement: Mild Bleeding Controlled with: Pressure and Compression and gauze Patient tolerated procedure: Patient tolerated procedure well Post-Debridement Measurements and Additional Note: Post-Debridement Measurements/Treatment - Nurse 1 - General Ulcer Assessment Start: 08/27/21 13:48 Freq: Status: Active Protocol: AGUSTIN Activity Type Activity Date Activity User E-Sign Co-Sign Detail Recorded Client Recorded Date Recorded By Document 08/27/21 13:52 DL [id number] 08/27/21 13:58 DL 08/27/21 13:52 - Today's Visit Information Type of service Follow-up Visit (Physician/COMMERCIAL TIRE SERVICE TECHNICIAN ) Arrival Mode Ambulatory Patient Identification Verified (Name & Yes ) Height and Weight Body Mass Index (BMI) 26.5 BMI Classification Overweight Vital Signs Temperature (97.8 F-99.1 F) 99.4 F H Temperature Source Temporal Pulse Location Monitor Source Monitor Position Semi-Fowlers Blood Pressure Location Left Arm History Since Last Visit- (Skip if this is Patient's initial visit) Have you changed medications since your No last visit? Any new allergies or adverse reactions No Had a fall/change in ADL's that may No increase risk of falls Signs or symptoms of abuse and/or No neglect since last visit Have you been in the hospital since your No last visit? Has dressing in place as prescribed Yes Has compression in place as prescribed N/A Has offloadiing in place as prescribed N/A Experienced any changes in pain level or No management Left Footwear Regular Shoe Right Footwear Regular Shoe Pain Scale: 0-10 Numeric Is Patient Pain Free? Yes - Nurse 1 - General Ulcer Measurement Start: 08/27/21 13:48 Freq: Status: Active Protocol: Activity Type Activity Date Activity User E-Sign Co-Sign Detail Recorded Client Recorded Date Recorded By Document 08/27/21 13:52 MONI [id number] 08/27/21 13:58 DL 08/27/21 13:52 Wound Center Nurse 1 #1 R Axilla -Current Size (cm) - Length 4.5 -Current Size (cm) - Width 14.8 -Current Size (cm) - Depth 1.2 -Total Square Cm 66.60 -Exudate Amt Large -Exudate Type Serosanguineous -Wound Margin Distinct, Outline Attached -Granulation Amt Large (67-100%) -Granulation Quality Red -Necrosis Amt None Present (0 %) -Texture (Ade-wound Skin Appearance) Assessed, Localized Edema ,Scarring -Moisture (Ade-wound Skin Appearance) No Abnormality, Assessed, Maceration -Color (Ade-wound Skin Appearance) No Abnormality, Assessed -Temperature (Ade-wound Skin No Abnormality Appearance) (Pt Warm) -Tenderness on Palpation (Ade-wound Yes Skin Appearance) -Ulcer Cleansing Soap and Water -Foul Odor after Cleansing Yes -Anesthetic Used 4% Lidocaine Solution WC - Nurse 2 - General Ulcer CM Notes Start: 08/27/21 13:48 Freq: Status: Active Protocol: Activity Type Activity Date Activity User E-Sign Co-Sign Detail Recorded Client Recorded Date Recorded By Document 08/27/21 14:18 [id number] 08/27/21 14:25 PRAVIN 08/27/21 14:18 Wound Center Nurse 2 -Time 14:22 -Correct Patient Yes -Correct Side, Site, Position Yes -Correct Procedure Yes -Procedure Performed Yes -Type of Procedure Incision & Drainage -Clinical Debridement Subcutaneous -Tissue Removed Subcutaneous -Post Debridement (cm) - Length 14.0 -Post Debridement (cm) - Width 4.0 -Post Debridement (cm) - Depth 2.0 -Total Square (Post) (cm) 56.00 -Area of Debridement (cm) - Length 14.0 -Area of Debridement (cm) - Width 4.0 -Total Square (Area) (cm) 56.00 -Tunneling No -Undermining/Tunneling No -Circular Undermining No -Wound/Ulcer Outcome Not Healed -Ulcer Cleansing Rinsed/ Irrigated with Saline -Foul Odor after Cleansing No -Bioengineered Tissue No -Bleeding Controlled with Pressure -Treatment Response Procedure Tolerated Well -Offloading No -Debridement - Subq, 1st 20sq cm Yes -Debridement, SubQ, ea addt'l 20sq cm 2 or part thereof Pain Scale: 0-10 Numeric Is Patient Pain Free? Yes Assessment/Plan Assessment/Plan (1) Open wound of right axillary region with complication: CODE(S): S41.101A - Unspecified open wound of right upper arm, initial encounter (2) Other acute postprocedural pain: CODE(S): G89.18 - Other acute postprocedural pain (3) Former smoker: CODE(S): Z87.891 - Personal history of nicotine dependence (4) Axillary hidradenitis suppurativa: CODE(S): L73.2 - Hidradenitis suppurativa (5) Hidradenitis: CODE(S): L73.2 - Hidradenitis suppurativa (6) Vulval hidradenitis suppurativa: CODE(S): L73.2 - Hidradenitis suppurativa PLAN: Wound care - Will take a wound VAC break this week due to her ade wound excoriation. Will do wet to dry Dakin's moistened gauze to the wound and top with super absorber/ABD daily and as needed. May need to change the outer dressing more frequently depending on how much she is draining. Discussed washing with soap and water, especially the ade wound area. She is coming into the wound center for the vac changes since we were unable to find her any home health to do the wound VAC changes at home. We will again to find home health. Operative cultures positive for Anaerobic cocci and Clostridium clostridioforme. She will stop the Clindamycin and start Flagyl. Pathology was consistent with hidradenitis. Continue Ibuprofen every 6 hours as needed for pain because she is afraid to take the narcotic pain meds except at the dressing change. She is to take this with food. Follow up one week.
[2021-09-03 13:32] VITALS: BP 115/85; PULSE 120; RESP 16; TEMP 36.1; BMI 26.5
--- NOTE | 2021-09-03 14:35 | PCM.WC.PN ---
History of Present Illness Date of Service: 09/03/21 Chief Complaint: Right axillary hidradenitis ulcer after excision History of Wound: 26 year old female presents for a recent flare of hidradenitis of her right axilla, and bilateral inguinal, mons pubis extending onto labia areas. She has a history of excision of her right axilla hidradenitis in 11/04, and excision of left axillary hidradenitis 12/04. She was last seen 2 years ago for a right axilla flare that was treated with antibiotics. She stopped using Augmentin and started on Clindamycin for 10 days. She saw an improvement in her symptoms of the mons pubis area. Her right axilla area where she had the firmness, opened and started to drain. She states she has been doing the sitz baths daily to help with the inguinal/mons pubis areas. Surgery 08/06/21 - Surgical preparation right axilla with excision recurrent hidradenitis (143 cm2). Size of wound right axilla - 11 x 13 x 3 cm. Wound care - Will take a wound VAC break due to her filomena wound excoriation. Will do wet to dry Dakin's moistened gauze to the wound and top with super absorber/ABD daily and as needed. May need to change the outer dressing more frequently depending on how much she is draining. She is coming into the wound center for the vac changes since we were unable to find her any home health to do the wound VAC changes at home. We will again to find home health. Today she denies fever and nausea and vomiting. She does not have much appetite. Her mother is having her drink protein shakes. Progress of Wound: Right axilla wound is beefy pink. Her filomena wound is red and excoriated and very painful to palpation. Objective Data Objective Data Vital Signs: Vital Signs Temp Pulse Resp BP 96.9 F L 120 H 16 115/85 H 09/03/21 13:32 09/03/21 13:32 09/03/21 13:32 09/03/21 13:32 Oxygen Delivery Method Room Air Weight: 150 lb Body Mass Index (BMI) 26.5 Charges/Coding Procedures Integumentary 111xxx-113xx: 95861 Global Visit Physical Exam Const alert General Appearance: cooperative HEENT normocephalic Resp normal respiratory effort Extremity normal capillary refill Skin Wound Narrative: Right axilla wound is beefy pink. Her filomena wound is starting to improve but still has some excoriation. Neuro CN's II-XII intact bilaterally Psych Appearance: grossly normal Debridement Note Debridement Note Wound debrided: axilla Laterality: Right Type of Debridement: Excisional debridement Anesthesia Used: 5% Lidocaine Gel Depth: Down to and including healthy tissue, in the subcutaneous layer and to muscle Percentage of wound debrided: 100 Instrument Used: 7mm curette Tissue Removed: Nonviable tissue and slough Severity: Fat Layer Exposed Amount of bleeding with debridement: Mild Bleeding Controlled with: Pressure Patient tolerated procedure: Patient tolerated procedure well Post-Debridement Measurements and Additional Note: Post-Debridement Measurements/Treatment - Nurse 1 - General Ulcer Assessment Start: 08/27/21 13:48 Freq: Status: Active Protocol: AGUSTIN Activity Type Activity Date Activity User E-Sign Co-Sign Detail Recorded Client Recorded Date Recorded By Document 08/27/21 13:52 DL [id number] 08/27/21 13:58 DL Document 09/03/21 13:32 [facility] [id number] 09/03/21 13:45 BMF 08/27/21 09/03/21 13:52 13:32 - Today's Visit Information Type of service Follow-up Visit Follow-up Visit (Physician/POLE FRAME CONSTRUCTION WORKER (Physician/POLE FRAME CONSTRUCTION WORKER ) ) Arrival Mode Ambulatory Ambulatory Transfer Assistance None Accompanied by MOM Patient Identification Verified (Name & Yes Yes ) Patient Requires Transmission-Based No Precautions Height and Weight Body Mass Index (BMI) 26.5 26.5 BMI Classification Overweight Overweight Vital Signs Temperature (97.8 F-99.1 F) 99.4 F H 96.9 F L Temperature Source Temporal Temporal Pulse Rate (60-100) 120 H Pulse Location Monitor Radial Respiratory Rate (12-18) 16 Respiratory rate source Observation Oxygen Delivery Method Room Air Blood Pressure (90/60-120/80) 115/85 H Blood Pressure Mean (mm Hg) 95 Source Monitor Monitor Position Semi-Fowlers Sitting Blood Pressure Location Left Arm Left Arm History Since Last Visit- (Skip if this is Patient's initial visit) Have you changed medications since your No No last visit? Any new allergies or adverse reactions No No Had a fall/change in ADL's that may No No increase risk of falls Signs or symptoms of abuse and/or No No neglect since last visit Have you been in the hospital since your No No last visit? Has dressing in place as prescribed Yes Yes Has compression in place as prescribed N/A N/A Has offloadiing in place as prescribed N/A N/A Experienced any changes in pain level or No No management Left Footwear Regular Shoe Regular Shoe Right Footwear Regular Shoe Regular Shoe Pain Scale: 0-10 Numeric Is Patient Pain Free? Yes Yes - Nurse 1 - General Ulcer Measurement Start: 08/27/21 13:48 Freq: Status: Active Protocol: Activity Type Activity Date Activity User E-Sign Co-Sign Detail Recorded Client Recorded Date Recorded By Document 08/27/21 13:52 DL [id number] 08/27/21 13:58 DL Document 09/03/21 13:32 [facility] [id number] 09/03/21 13:45 BMF 08/27/21 09/03/21 13:52 13:32 Wound Center Nurse 1 #1 R Axilla -Current Size (cm) - Length 4.5 14 -Current Size (cm) - Width 14.8 3.9 -Current Size (cm) - Depth 1.2 0.3 -Total Square Cm 66.60 54.6 -Exudate Amt Large Medium -Exudate Type Serosanguineous Serosanguineous -Wound Margin Distinct, Distinct, Outline Outline Attached Attached -Granulation Amt Large (67-100%) Large (67-100%) -Granulation Quality Red Red -Necrosis Amt None Present (0 None Present (0 %) %) -Structure Exposed Fat Layer Exposed -Texture (Filomena-wound Skin Appearance) Assessed, Assessed, Localized Edema Scarring ,Scarring -Moisture (Filomena-wound Skin Appearance) No Abnormality, Assessed, Assessed, Maceration Maceration -Color (Filomena-wound Skin Appearance) No Abnormality, No Abnormality, Assessed Assessed -Temperature (Filomena-wound Skin No Abnormality No Abnormality Appearance) (Pt Warm) (Pt Warm) -Tenderness on Palpation (Filomena-wound Yes No Skin Appearance) -Ulcer Cleansing Soap and Water Soap and Water -Foul Odor after Cleansing Yes No -Anesthetic Used 4% Lidocaine 4% Lidocaine Solution Solution - Nurse 2 - General Ulcer CM Notes Start: 08/27/21 13:48 Freq: Status: Active Protocol: Activity Type Activity Date Activity User E-Sign Co-Sign Detail Recorded Client Recorded Date Recorded By Document 08/27/21 14:18 [id number] 08/27/21 14:25 Document 09/03/21 13:56 [id number] 09/03/21 14:02 08/27/21 09/03/21 14:18 13:56 Wound Center Nurse 2 #1 R Axilla -Time 14:22 13:56 -Correct Patient Yes Yes -Correct Side, Site, Position Yes Yes -Correct Procedure Yes Yes -Procedure Performed Yes Yes -Type of Procedure Incision & Debridement Drainage -Clinical Debridement Subcutaneous Subcutaneous -Tissue Removed Subcutaneous Epidermis, Subcutaneous -Post Debridement (cm) - Length 14.0 12.5 -Post Debridement (cm) - Width 4.0 4.5 -Post Debridement (cm) - Depth 2.0 1.7 -Total Square (Post) (cm) 56.00 56.25 -Area of Debridement (cm) - Length 14.0 12.5 -Area of Debridement (cm) - Width 4.0 4.5 -Total Square (Area) (cm) 56.00 56.25 -Tunneling No No -Undermining/Tunneling No No -Circular Undermining No No -Wound/Ulcer Outcome Not Healed Not Healed -Ulcer Cleansing Rinsed/ Rinsed/ Irrigated with Irrigated with Saline Saline -Foul Odor after Cleansing No No -Bioengineered Tissue No No -Bleeding Controlled with Pressure Pressure -Treatment Response Procedure Procedure Tolerated Well Tolerated Well -Offloading No No -Debridement - Subq, 1st 20sq cm Yes Yes -Debridement, SubQ, ea addt'l 20sq cm 2 2 or part thereof Pain Scale: 0-10 Numeric Is Patient Pain Free? Yes Yes - Nurse 3 - General Ulcer D/C NN Start: 08/27/21 13:48 Freq: Status: Active Protocol: Activity Type Activity Date Activity User E-Sign Co-Sign Detail Recorded Client Recorded Date Recorded By Document 09/03/21 14:12 [facility] [id number] 09/03/21 14:13 [facility] 09/03/21 14:12 Wound Care Nurse 3 #1 R Axilla -Ulcer Cleansing Rinsed/ Irrigated with Saline -Foul Odor after Cleansing No -Primary Dressing Applied Other -Other Dressing DAKINS MOISTENED GAUZE , DRSG PER [place] CLIENT SERVICE MANAGER -Primary Dressing Covered/Secured with Secured with Tape,Other -Other Covering ABD Treatment Response Procedure Tolerated Well Pain Scale: 0-10 Numeric Is Patient Pain Free? Yes WC - Visit Discharge Discharge Condition Stable Ambulatory Status Ambulatory Transportation Private Auto Accompanied by MOM Assessment/Plan Assessment/Plan (1) Open wound of right axillary region with complication: CODE(S): S41.101A - Unspecified open wound of right upper arm, initial encounter (2) Other acute postprocedural pain: CODE(S): G89.18 - Other acute postprocedural pain (3) Former smoker: CODE(S): Z87.891 - Personal history of nicotine dependence (4) Hidradenitis: CODE(S): L73.2 - Hidradenitis suppurativa (5) Axillary hidradenitis suppurativa: CODE(S): L73.2 - Hidradenitis suppurativa PLAN: Wound care - Will take a wound VAC break again this week due to her filomena wound still being excoriated. Will do wet to dry Dakin's moistened gauze to the wound and top with super absorber/ABD daily and as needed. May need to change the outer dressing more frequently depending on how much she is draining. Continue to wash with soap and water, especially the filomena wound area at the time of the dressing change. She is coming into the wound center for the vac changes since we were unable to find her any home health to do the wound VAC changes at home. Operative cultures positive for Anaerobic cocci and Clostridium clostridioforme. Continue Flagyl. Pathology was consistent with hidradenitis. Renewed Valium (14 tabs) for muscle spasms. PDMP reviewed. Follow up one week.
[2021-09-10 14:07] VITALS: BP 108/63; PULSE 93; RESP 16; TEMP 36.6; BMI 26.5
--- NOTE | 2021-09-10 15:06 | PCM.WC.PN ---
History of Present Illness Date of Service: 09/10/21 Chief Complaint: Right axillary hidradenitis ulcer after excision History of Wound: 26 year old female presents for a recent flare of hidradenitis of her right axilla, and bilateral inguinal, mons pubis extending onto labia areas. She has a history of excision of her right axilla hidradenitis in 11/04, and excision of left axillary hidradenitis 12/04. She was last seen 2 years ago for a right axilla flare that was treated with antibiotics. She stopped using Augmentin and started on Clindamycin for 10 days. She saw an improvement in her symptoms of the mons pubis area. Her right axilla area where she had the firmness, opened and started to drain. She states she has been doing the sitz baths daily to help with the inguinal/mons pubis areas. Surgery 08/06/21 - Surgical preparation right axilla with excision recurrent hidradenitis (143 cm2). Size of wound right axilla - 11 x 13 x 3 cm. Wound care - We will discontinue the wound VAC by patient request and the improvement in her ulcer. Continue Dakin's moistened gauze to the wound and top with super absorber/ABD daily and as needed. May need to change the outer dressing more frequently depending on how much she is draining. Today she denies fever and nausea and vomiting. She does not have much appetite. Her mother is having her drink protein shakes. Progress of Wound: Right axilla ulcer is beefy pink. The ulcer is much improved and smaller in size. Her filomena wound is improved. Ther continues to be a small amount of excoriation, but compared to last week it is 80% improved. Objective Data Objective Data Vital Signs: Vital Signs Temp Pulse Resp BP 98 F 93 16 108/63 09/10/21 14:07 09/10/21 14:07 09/10/21 14:07 09/10/21 14:07 Oxygen Delivery Method Room Air Weight: 150 lb Body Mass Index (BMI) 26.5 Charges/Coding Procedures Integumentary 111xxx-113xx: 52374 Global Visit Physical Exam Const alert and oriented x3 HEENT normocephalic Resp normal respiratory effort Cardio regular rate Extremity Extremity Narrative: Good range of motion of her right shoulder. Skin Wound Narrative: Right axilla ulcer is beefy pink, smaller in size and depth. The filomena wound is much improved compared to last week. Neuro CN's II-XII intact bilaterally Debridement Note Debridement Note Wound debrided: axillary ulcer Laterality: Right Type of Debridement: Excisional debridement Anesthesia Used: 5% Lidocaine Gel Depth: Down to and including healthy tissue and in the subcutaneous layer Percentage of wound debrided: 100 Instrument Used: 7mm curette Tissue Removed: Non viable tissue and slough Severity: Fat Layer Exposed Amount of bleeding with debridement: Mild Bleeding Controlled with: Pressure Patient tolerated procedure: Patient tolerated procedure well Post-Debridement Measurements and Additional Note: Post-Debridement Measurements/Treatment - Nurse 1 - General Ulcer Assessment Start: 08/27/21 13:48 Freq: Status: Active Protocol: AGUSTIN Activity Type Activity Date Activity User E-Sign Co-Sign Detail Recorded Client Recorded Date Recorded By Document 08/27/21 13:52 DL [id number] 08/27/21 13:58 DL Document 09/03/21 13:32 BM [id number] 09/03/21 13:45 BMF Document 09/10/21 14:07 BM [id number] 09/10/21 14:12 BMF 08/27/21 09/03/21 09/10/21 13:52 13:32 14:07 - Today's Visit Information Type of service Follow-up Visit Follow-up Visit Follow-up Visit (Physician/PRODUCTION HARDENER (Physician/PRODUCTION HARDENER (Physician/PRODUCTION HARDENER ) ) ) Arrival Mode Ambulatory Ambulatory Ambulatory Transfer Assistance None None Accompanied by MOM mother Patient Identification Verified (Name & Yes Yes Yes ) Patient Requires Transmission-Based No No Precautions Height and Weight Body Mass Index (BMI) 26.5 26.5 26.5 BMI Classification Overweight Overweight Overweight Vital Signs Temperature (97.8 F-99.1 F) 99.4 F H 96.9 F L 98 F Temperature Source Temporal Temporal Temporal Pulse Rate (60-100) 120 H 93 Pulse Location Monitor Radial Monitor Respiratory Rate (12-18) 16 16 Respiratory rate source Observation Observation Oxygen Delivery Method Room Air Room Air Blood Pressure (90/60-120/80) 115/85 H 108/63 Blood Pressure Mean (mm Hg) 95 78 Source Monitor Monitor Monitor Position Semi-Fowlers Sitting Sitting Blood Pressure Location Left Arm Left Arm History Since Last Visit- (Skip if this is Patient's initial visit) Have you changed medications since your No No No last visit? Any new allergies or adverse reactions No No No Had a fall/change in ADL's that may No No No increase risk of falls Signs or symptoms of abuse and/or No No No neglect since last visit Have you been in the hospital since your No No No last visit? Has dressing in place as prescribed Yes Yes Yes Has compression in place as prescribed N/A N/A N/A Has offloadiing in place as prescribed N/A N/A N/A Experienced any changes in pain level or No No No management Left Footwear Regular Shoe Regular Shoe Regular Shoe Right Footwear Regular Shoe Regular Shoe Regular Shoe Pain Scale: 0-10 Numeric Is Patient Pain Free? Yes Yes Yes WC - Nurse 1 - General Ulcer Measurement Start: 08/27/21 13:48 Freq: Status: Active Protocol: Activity Type Activity Date Activity User E-Sign Co-Sign Detail Recorded Client Recorded Date Recorded By Document 08/27/21 13:52 DL [id number] 08/27/21 13:58 DL Document 09/03/21 13:32 BM [id number] 09/03/21 13:45 BMF Document 09/10/21 14:07 BMF [id number] 09/10/21 14:12 BMF 08/27/21 09/03/21 09/10/21 13:52 13:32 14:07 Wound Center Nurse 1 #1 R Axilla -Combined with other wound No -Current Size (cm) - Length 4.5 14 11.6 -Current Size (cm) - Width 14.8 3.9 4.5 -Current Size (cm) - Depth 1.2 0.3 0.2 -Total Square Cm 66.60 54.6 52.20 -Date of Last Picture (Recall this 09/10/21 field) -Photo Taken Yes -Epithelialization Small 1-33% -Tunneling No -Undermining/Tunneling No -Circular Undermining No -Exudate Amt Large Medium Medium -Exudate Type Serosanguineous Serosanguineous Serosanguineous -Wound Margin Distinct, Distinct, Distinct, Outline Outline Outline Attached Attached Attached -Granulation Amt Large (67-100%) Large (67-100%) Large (67-100%) -Granulation Quality Red Red Red -Slough/Fibrin No -Necrosis Amt None Present (0 None Present (0 %) %) -Structure Exposed Fat Layer Exposed -Texture (Filomena-wound Skin Appearance) Assessed, Assessed, Assessed, Localized Edema Scarring Scarring ,Scarring -Moisture (Filomena-wound Skin Appearance) No Abnormality, Assessed, Assessed Assessed, Maceration Maceration -Color (Filomena-wound Skin Appearance) No Abnormality, No Abnormality, Assessed Assessed Assessed -Temperature (Filomena-wound Skin No Abnormality No Abnormality No Abnormality Appearance) (Pt Warm) (Pt Warm) (Pt Warm) -Tenderness on Palpation (Filomena-wound Yes No Yes Skin Appearance) -Ulcer Cleansing Soap and Water Soap and Water Soap and Water -Foul Odor after Cleansing Yes No No -Anesthetic Used 4% Lidocaine 4% Lidocaine 4% Lidocaine Solution Solution Solution WC - Nurse 2 - General Ulcer CM Notes Start: 08/27/21 13:48 Freq: Status: Active Protocol: Activity Type Activity Date Activity User E-Sign Co-Sign Detail Recorded Client Recorded Date Recorded By Document 08/27/21 14:18 [id number] 08/27/21 14:25 Document 09/03/21 13:56 [id number] 09/03/21 14:02 Document 09/10/21 14:36 [id number] 09/10/21 14:39 08/27/21 09/03/21 09/10/21 14:18 13:56 14:36 Wound Center Nurse 2 #1 R Axilla -Time 14:22 13:56 14:37 -Correct Patient Yes Yes Yes -Correct Side, Site, Position Yes Yes Yes -Correct Procedure Yes Yes Yes -Procedure Performed Yes Yes Yes -Type of Procedure Incision & Debridement Debridement Drainage -Clinical Debridement Subcutaneous Subcutaneous Subcutaneous -Tissue Removed Subcutaneous Epidermis, Subcutaneous Subcutaneous -Post Debridement (cm) - Length 14.0 12.5 11.5 -Post Debridement (cm) - Width 4.0 4.5 4.3 -Post Debridement (cm) - Depth 2.0 1.7 0.6 -Total Square (Post) (cm) 56.00 56.25 49.45 -Area of Debridement (cm) - Length 14.0 12.5 11.5 -Area of Debridement (cm) - Width 4.0 4.5 4.3 -Total Square (Area) (cm) 56.00 56.25 49.45 -Tunneling No No No -Undermining/Tunneling No No No -Circular Undermining No No No -Wound/Ulcer Outcome Not Healed Not Healed Not Healed -Ulcer Cleansing Rinsed/ Rinsed/ Rinsed/ Irrigated with Irrigated with Irrigated with Saline Saline Saline -Foul Odor after Cleansing No No No -Bioengineered Tissue No No No -Bleeding Controlled with Pressure Pressure Pressure -Treatment Response Procedure Procedure Procedure Tolerated Well Tolerated Well Tolerated Well -Offloading No No No -Debridement - Subq, 1st 20sq cm Yes Yes Yes -Debridement, SubQ, ea addt'l 20sq cm 2 2 2 or part thereof Pain Scale: 0-10 Numeric Is Patient Pain Free? Yes Yes Yes - Nurse 3 - General Ulcer D/C NN Start: 08/27/21 13:48 Freq: Status: Active Protocol: Activity Type Activity Date Activity User E-Sign Co-Sign Detail Recorded Client Recorded Date Recorded By Document 09/03/21 14:12 [facility] [id number] 09/03/21 14:13 [facility] Document 09/10/21 14:48 [id number] 09/10/21 14:50 09/03/21 09/10/21 14:12 14:48 Wound Care Nurse 3 #1 R Axilla -Ulcer Cleansing Rinsed/ Rinsed/ Irrigated with Irrigated with Saline Saline -Foul Odor after Cleansing No -Primary Dressing Applied Other -Other Dressing DAKINS gauze moistened MOISTENED GAUZE with Dakins , DRSG PER [place] and covered WEB FEEDER with ABD pad. -Primary Dressing Covered/Secured with Secured with Secured with Tape,Other Tape -Other Covering ABD Treatment Response Procedure Tolerated Well Pain Scale: 0-10 Numeric Is Patient Pain Free? Yes Yes - Visit Discharge Discharge Condition Stable Stable Ambulatory Status Ambulatory Ambulatory Transportation Private Auto Private Auto Accompanied by MOM mother Assessment/Plan Assessment/Plan (1) Skin ulcer of axilla with fat layer exposed: CODE(S): L98.492 - Non-pressure chronic ulcer of skin of other sites with fat layer exposed (2) Axillary hidradenitis suppurativa: CODE(S): L73.2 - Hidradenitis suppurativa (3) Former smoker: CODE(S): Z87.891 - Personal history of nicotine dependence (4) Other acute postprocedural pain: CODE(S): G89.18 - Other acute postprocedural pain PLAN: Wound care - Wound care - We will discontinue the wound VAC by patient request and the improvement in her ulcer. Continue Dakin's moistened gauze to the wound and top with super absorber/ABD daily and as needed. May need to change the outer dressing more frequently depending on how much she is draining. Continue to wash with soap and water, especially the filomena wound area at the time of the dressing change. Operative cultures positive for Anaerobic cocci and Clostridium clostridioforme. Continue Flagyl. Pathology was consistent with hidradenitis. Pain is better controlled. Follow up one week.
[2021-09-17 14:46] VITALS: BP 140/92; RESP 16; TEMP 37.2; BMI 26.5
--- NOTE | 2021-09-17 15:30 | PN.PCM_ITS ---
History of Present Illness Date of Service: 09/17/21 Chief Complaint: Right axillary hidradenitis ulcer after excision History of Wound: 26 year old female presents for a recent flare of hidradenitis of her right axilla, and bilateral inguinal, mons pubis extending onto labia areas. She has a history of excision of her right axilla hidradenitis in 11/04, and excision of left axillary hidradenitis 12/04. She was last seen 2 years ago for a right axilla flare that was treated with antibiotics. She stopped using Augmentin and started on Clindamycin for 10 days. She saw an improvement in her symptoms of the mons pubis area. Her right axilla area where she had the firmness, opened and started to drain. She states she has been doing the sitz baths daily to help with the inguinal/mons pubis areas. Surgery 08/06/21 - Surgical preparation right axilla with excision recurrent hidradenitis (143 cm2). Size of wound right axilla - 11 x 13 x 3 cm. Wound care - Dakin's moistened gauze to the wound and top with super absorber/ABD daily and as needed. May need to change the outer dressing more frequently depending on how much she is draining. Today she denies fever and nausea and vomiting. She does not have much appetite. Her mother is having her drink protein shakes. Progress of Wound: Right axilla ulcer is beefy pink. The ulcer is much improved and smaller in size. Her filomena wound is improved. She is having increased pain and drainage from her right groin/mons pubis area that has increased redness with drainage. She states that it was much improved when she was on her last antibiotic (Flagyl) and after a week of completing the antibiotic, her symptoms started to flare back up. Objective Data Objective Data Vital Signs: Vital Signs Temp Pulse Resp BP 99 F 93 16 140/92 H 09/17/21 14:46 09/10/21 14:07 09/17/21 14:46 09/17/21 14:46 Oxygen Delivery Method Room Air Weight: 150 lb Body Mass Index (BMI) 26.5 Charges/Coding Procedures Integumentary 111xxx-113xx: [id number] Global Visit Physical Exam Const alert and oriented x3 General Appearance: cooperative HEENT normocephalic Resp normal respiratory effort Cardio regular rate Extremity normal capillary refill Skin Skin Narrative: Right groin and mons pubic area with multiple areas of hidradenitis openings that are raised, red and having drainage. Very painful, especially with palpation. Wound Narrative: Right axilla is a nice beefy pink color with granulation tissue, there is some hypergranulation on the top edge of the ulcer. Overall smaller in size. Neuro CN's II-XII intact bilaterally Psych Appearance: well kempt Debridement Note Debridement Note Wound debrided: axilla ulcer Laterality: Right Type of Debridement: Excisional debridement Anesthesia Used: 5% Lidocaine Gel Depth: Down to and including healthy tissue and in the subcutaneous layer Percentage of wound debrided: 100 Instrument Used: 7mm curette Tissue Removed: Non viable tissue and slough, hypergranulation tissue at 12 o'clock Severity: Fat Layer Exposed Amount of bleeding with debridement: Mild Bleeding Controlled with: Pressure Patient tolerated procedure: Patient tolerated procedure well Post-Debridement Measurements and Additional Note: Post-Debridement Measurements/Treatment - Nurse 1 - General Ulcer Assessment Start: 08/27/21 13:48 Freq: Status: Active Protocol: AGUSTIN Activity Type Activity Date Activity User E-Sign Co-Sign Detail Recorded Client Recorded Date Recorded By Document 08/27/21 13:52 DL [id number] 08/27/21 13:58 DL Document 09/03/21 13:32 [facility] [id number] 09/03/21 13:45 [facility] Document 09/10/21 14:07 [facility] [id number] 09/10/21 14:12 [facility] Document 09/17/21 14:46 [facility] [id number] 09/17/21 14:50 [facility] 08/27/21 09/03/21 09/10/21 13:52 13:32 14:07 - Today's Visit Information Type of service Follow-up Visit Follow-up Visit Follow-up Visit (Physician/STEEL ROD BUSTER (Physician/STEEL ROD BUSTER (Physician/STEEL ROD BUSTER ) ) ) Arrival Mode Ambulatory Ambulatory Ambulatory Transfer Assistance None None Accompanied by MOM mother Patient Identification Verified (Name & Yes Yes Yes ) Patient Requires Transmission-Based No No Precautions Height and Weight Body Mass Index (BMI) 26.5 26.5 26.5 BMI Classification Overweight Overweight Overweight Vital Signs Temperature (97.8 F-99.1 F) 99.4 F H 96.9 F L 98 F Temperature Source Temporal Temporal Temporal Pulse Rate (60-100) 120 H 93 Pulse Location Monitor Radial Monitor Respiratory Rate (12-18) 16 16 Respiratory rate source Observation Observation Oxygen Delivery Method Room Air Room Air Blood Pressure (90/60-120/80) 115/85 H 108/63 Blood Pressure Mean (mm Hg) 95 78 Source Monitor Monitor Monitor Position Semi-Fowlers Sitting Sitting Blood Pressure Location Left Arm Left Arm History Since Last Visit- (Skip if this is Patient's initial visit) Have you changed medications since your No No No last visit? Any new allergies or adverse reactions No No No Had a fall/change in ADL's that may No No No increase risk of falls Signs or symptoms of abuse and/or No No No neglect since last visit Have you been in the hospital since your No No No last visit? Has dressing in place as prescribed Yes Yes Yes Has compression in place as prescribed N/A N/A N/A Has offloadiing in place as prescribed N/A N/A N/A Experienced any changes in pain level or No No No management Left Footwear Regular Shoe Regular Shoe Regular Shoe Right Footwear Regular Shoe Regular Shoe Regular Shoe Pain Scale: 0-10 Numeric Is Patient Pain Free? Yes Yes Yes 09/17/21 14:46 WC - Today's Visit Information Type of service Follow-up Visit (Physician/STEEL ROD BUSTER ) Arrival Mode Ambulatory Transfer Assistance None Accompanied by mother Patient Identification Verified (Name & Yes ) Patient Requires Transmission-Based No Precautions Height and Weight Body Mass Index (BMI) 26.5 BMI Classification Overweight Vital Signs Temperature (97.8 F-99.1 F) 99 F Temperature Source Temporal Pulse Rate (60-100) Pulse Location Respiratory Rate (12-18) 16 Respiratory rate source Observation Oxygen Delivery Method Room Air Blood Pressure (90/60-120/80) 140/92 H Blood Pressure Mean (mm Hg) 108 Source Monitor Position Supine Blood Pressure Location Right Arm History Since Last Visit- (Skip if this is Patient's initial visit) Have you changed medications since your No last visit? Any new allergies or adverse reactions No Had a fall/change in ADL's that may No increase risk of falls Signs or symptoms of abuse and/or No neglect since last visit Have you been in the hospital since your No last visit? Has dressing in place as prescribed Yes Has compression in place as prescribed N/A Has offloadiing in place as prescribed N/A Experienced any changes in pain level or No management Left Footwear Regular Shoe Right Footwear Regular Shoe Pain Scale: 0-10 Numeric Is Patient Pain Free? Yes WC - Nurse 1 - General Ulcer Measurement Start: 08/27/21 13:48 Freq: Status: Active Protocol: Activity Type Activity Date Activity User E-Sign Co-Sign Detail Recorded Client Recorded Date Recorded By Document 08/27/21 13:52 DL [id number] 08/27/21 13:58 DL Document 09/03/21 13:32 [facility] [id number] 09/03/21 13:45 BMF Document 09/10/21 14:07 BMF [id number] 09/10/21 14:12 BMF Document 09/17/21 14:46 BMF [id number] 09/17/21 14:50 BMF 08/27/21 09/03/21 09/10/21 13:52 13:32 14:07 Wound Center Nurse 1 #1 R Axilla -Combined with other wound No -Current Size (cm) - Length 4.5 14 11.6 -Current Size (cm) - Width 14.8 3.9 4.5 -Current Size (cm) - Depth 1.2 0.3 0.2 -Total Square Cm 66.60 54.6 52.20 -Date of Last Picture (Recall this 09/10/21 field) -Photo Taken Yes -Epithelialization Small 1-33% -Tunneling No -Undermining/Tunneling No -Circular Undermining No -Exudate Amt Large Medium Medium -Exudate Type Serosanguineous Serosanguineous Serosanguineous -Wound Margin Distinct, Distinct, Distinct, Outline Outline Outline Attached Attached Attached -Granulation Amt Large (67-100%) Large (67-100%) Large (67-100%) -Granulation Quality Red Red Red -Slough/Fibrin No -Necrosis Amt None Present (0 None Present (0 %) %) -Necrotic Tissue Type -Structure Exposed Fat Layer Exposed -Texture (Filomena-wound Skin Appearance) Assessed, Assessed, Assessed, Localized Edema Scarring Scarring ,Scarring -Moisture (Filomena-wound Skin Appearance) No Abnormality, Assessed, Assessed Assessed, Maceration Maceration -Color (Filomena-wound Skin Appearance) No Abnormality, No Abnormality, Assessed Assessed Assessed -Temperature (Filomena-wound Skin No Abnormality No Abnormality No Abnormality Appearance) (Pt Warm) (Pt Warm) (Pt Warm) -Tenderness on Palpation (Filomena-wound Yes No Yes Skin Appearance) -Ulcer Cleansing Soap and Water Soap and Water Soap and Water -Foul Odor after Cleansing Yes No No -Anesthetic Used 4% Lidocaine 4% Lidocaine 4% Lidocaine Solution Solution Solution 09/17/21 14:46 Wound Center Nurse 1 #1 R Axilla -Combined with other wound No -Current Size (cm) - Length 3.5 -Current Size (cm) - Width 9 -Current Size (cm) - Depth 0.1 -Total Square Cm 31.5 -Date of Last Picture (Recall this field) -Photo Taken No -Epithelialization Small 1-33% -Tunneling No -Undermining/Tunneling No -Circular Undermining No -Exudate Amt -Exudate Type Serous -Wound Margin Distinct, Outline Attached -Granulation Amt Large (67-100%) -Granulation Quality Hyper- granulation,Red -Slough/Fibrin Yes -Necrosis Amt Small (1-33%) -Necrotic Tissue Type Adherent Slough -Structure Exposed -Texture (Filomena-wound Skin Appearance) Assessed, Scarring -Moisture (Filomena-wound Skin Appearance) Assessed -Color (Filomena-wound Skin Appearance) Assessed -Temperature (Filomena-wound Skin No Abnormality Appearance) (Pt Warm) -Tenderness on Palpation (Filomena-wound No Skin Appearance) -Ulcer Cleansing Soap and Water -Foul Odor after Cleansing No -Anesthetic Used 4% Lidocaine Solution - Nurse 2 - General Ulcer CM Notes Start: 08/27/21 13:48 Freq: Status: Active Protocol: Activity Type Activity Date Activity User E-Sign Co-Sign Detail Recorded Client Recorded Date Recorded By Document 08/27/21 14:18 [id number] 08/27/21 14:25 Document 09/03/21 13:56 [id number] 09/03/21 14:02 Document 09/10/21 14:36 [id number] 09/10/21 14:39 Document 09/17/21 15:13 [id number] 09/17/21 15:18 08/27/21 09/03/21 09/10/21 14:18 13:56 14:36 Wound Center Nurse 2 #1 R Axilla -Time 14:22 13:56 14:37 -Correct Patient Yes Yes Yes -Correct Side, Site, Position Yes Yes Yes -Correct Procedure Yes Yes Yes -Procedure Performed Yes Yes Yes -Type of Procedure Incision & Debridement Debridement Drainage -Clinical Debridement Subcutaneous Subcutaneous Subcutaneous -Tissue Removed Subcutaneous Epidermis, Subcutaneous Subcutaneous -Post Debridement (cm) - Length 14.0 12.5 11.5 -Post Debridement (cm) - Width 4.0 4.5 4.3 -Post Debridement (cm) - Depth 2.0 1.7 0.6 -Total Square (Post) (cm) 56.00 56.25 49.45 -Area of Debridement (cm) - Length 14.0 12.5 11.5 -Area of Debridement (cm) - Width 4.0 4.5 4.3 -Total Square (Area) (cm) 56.00 56.25 49.45 -Tunneling No No No -Undermining/Tunneling No No No -Circular Undermining No No No -Wound/Ulcer Outcome Not Healed Not Healed Not Healed -Ulcer Cleansing Rinsed/ Rinsed/ Rinsed/ Irrigated with Irrigated with Irrigated with Saline Saline Saline -Foul Odor after Cleansing No No No -Bioengineered Tissue No No No -Bleeding Controlled with Pressure Pressure Pressure -Treatment Response Procedure Procedure Procedure Tolerated Well Tolerated Well Tolerated Well -Offloading No No No -Debridement - Subq, 1st 20sq cm Yes Yes Yes -Debridement, SubQ, ea addt'l 20sq cm 2 2 2 or part thereof Pain Scale: 0-10 Numeric Is Patient Pain Free? Yes Yes Yes 09/17/21 15:13 Wound Center Nurse 2 #1 R Axilla -Time 15:13 -Correct Patient Yes -Correct Side, Site, Position Yes -Correct Procedure Yes -Procedure Performed Yes -Type of Procedure Debridement -Clinical Debridement Subcutaneous -Tissue Removed Subcutaneous -Post Debridement (cm) - Length 10.3 -Post Debridement (cm) - Width 3.5 -Post Debridement (cm) - Depth 0.3 -Total Square (Post) (cm) 36.05 -Area of Debridement (cm) - Length 10.3 -Area of Debridement (cm) - Width 3.5 -Total Square (Area) (cm) 36.05 -Tunneling No -Undermining/Tunneling No -Circular Undermining No -Wound/Ulcer Outcome Not Healed -Ulcer Cleansing Rinsed/ Irrigated with Saline -Foul Odor after Cleansing No -Bioengineered Tissue No -Bleeding Controlled with Pressure -Treatment Response Procedure Tolerated Well -Offloading No -Debridement - Subq, 1st 20sq cm Yes -Debridement, SubQ, ea addt'l 20sq cm 1 or part thereof Pain Scale: 0-10 Numeric Is Patient Pain Free? Yes - Nurse 3 - General Ulcer D/C NN Start: 08/27/21 13:48 Freq: Status: Active Protocol: Activity Type Activity Date Activity User E-Sign Co-Sign Detail Recorded Client Recorded Date Recorded By Document 09/03/21 14:12 [facility] [id number] 09/03/21 14:13 [facility] Document 09/10/21 14:48 [id number] 09/10/21 14:50 KR Document 09/17/21 15:26 [facility] [id number] 09/17/21 15:26 [facility] 09/03/21 09/10/21 09/17/21 14:12 14:48 15:26 Wound Care Nurse 3 #1 R Axilla -Ulcer Cleansing Rinsed/ Rinsed/ Rinsed/ Irrigated with Irrigated with Irrigated with Saline Saline Saline -Foul Odor after Cleansing No No -Primary Dressing Applied Other Other -Other Dressing DAKINS gauze moistened dakins moist MOISTENED GAUZE with Dakins gauze per kr , DRSG PER [place] and covered land mobile radio technician GUARD RANGE with ABD pad. -Primary Dressing Covered/Secured with Secured with Secured with Secured with Tape,Other Tape Tape,Other -Other Covering ABD abd Treatment Response Procedure Procedure Tolerated Well Tolerated Well Pain Scale: 0-10 Numeric Is Patient Pain Free? Yes Yes Yes WC - Visit Discharge Discharge Condition Stable Stable Stable Ambulatory Status Ambulatory Ambulatory Ambulatory Transportation Private Auto Private Auto Private Auto Accompanied by MOM mother Assessment/Plan Assessment/Plan (1) Skin ulcer of axilla with fat layer exposed: CODE(S): L98.492 - Non-pressure chronic ulcer of skin of other sites with fat layer exposed (2) Former smoker: CODE(S): Z87.891 - Personal history of nicotine dependence (3) Axillary hidradenitis suppurativa: CODE(S): L73.2 - Hidradenitis suppurativa (4) Hidradenitis: CODE(S): L73.2 - Hidradenitis suppurativa (5) Vulval hidradenitis suppurativa: CODE(S): L73.2 - Hidradenitis suppurativa PLAN: Wound care - Wound care - Dakin's moistened gauze to the wound and top with super absorber/ABD daily and as needed. May need to change the outer dressing more frequently depending on how much she is draining. Continue to wash with soap and water, especially the filomena wound area at the time of the dressing change. She is having a hidradenitis flare in her bilateral groins with the right side being worse and in her mons pubis area. She states that this area was almost healed when she was on her last antibiotic (Flagyl) and after she completed it started to become worse. It is been very painful the past week. Encouraged her to continue the Sitz baths with Epsom salt daily. Discussed her issue with Dr. Littlejohn and we will place her back on Flagyl for 10 days. Encouraged increase protein intake to help with healing. Operative cultures positive for Anaerobic cocci and Clostridium clostridioforme. Continue Flagyl. Pathology was consistent with hidradenitis. Pain is better controlled. Follow up one week.
== END 2021-09-22 23:59 | disposition home or self-care (01) ==
LOC: WC 14:45
PROVIDERS: PCP Internal Medicine; Visit Provider Nurse Practitioner Family
DX: L73.2 Hidradenitis suppurativa (principal); L98.492 Non-pressure chronic ulcer of skin of other sites with fat layer exposed; Z87.891 Personal history of nicotine dependence
CPT/HCPCS: 11042; 11045

== ENCOUNTER 2021-10-15 14:15 | Outpatient (RCR) | payer MEDICAID, SELFPAY ==
[2021-09-23 00:42] VITALS: BP 140/92; PULSE 93; RESP 16; TEMP 37.2; BMI 26.5
[2021-09-25 13:12] VITALS: BP 98/58; PULSE 90; TEMP 36.7; BMI 26.5
--- NOTE | 2021-09-25 15:20 | PN.PCM_ITS ---
History of Present Illness Date of Service: 09/25/21 Chief Complaint: Right axillary hidradenitis ulcer after excision History of Wound: 26 year old female presents for a recent flare of hidradenitis of her right axilla, and bilateral inguinal, mons pubis extending onto labia areas. She has a history of excision of her right axilla hidradenitis in 11/04, and excision of left axillary hidradenitis 12/04. She was last seen 2 years ago for a right axilla flare that was treated with antibiotics. She stopped using Augmentin and started on Clindamycin for 10 days. She saw an improvement in her symptoms of the mons pubis area. Her right axilla area where she had the firmness, opened and started to drain. She states she has been doing the sitz baths daily to help with the inguinal/mons pubis areas. Surgery 08/06/21 - Surgical preparation right axilla with excision recurrent hidradenitis (143 cm2). Size of wound right axilla - 11 x 13 x 3 cm. Wound care - Stop Dakin's moistened gauze and start Silver alginate to the wound and top with super absorber/ABD daily. Today she denies fever and nausea and vomiting. She does not have much appetite. Her mother is having her drink protein shakes. Progress of Wound: Right axilla ulcer is beefy pink. There is a decrease in the size of the ulcer. There is some hypergranulation present. Patient states that she is starting to have more difficulty raising her arm over her head. Encouraged to continue to move her arm/shoulder as much as possible to keep her full range of motion. Objective Data Objective Data Vital Signs: Vital Signs Temp Pulse Resp BP 98.0 F 90 16 98/58 L 09/25/21 13:12 09/25/21 13:12 09/23/21 00:42 09/25/21 13:12 Weight: 150 lb Body Mass Index (BMI) 26.5 Charges/Coding Procedures Integumentary 111xxx-113xx: 30294 Global Visit Physical Exam Const alert and oriented x3 General Appearance: cooperative HEENT normocephalic Head and Scalp: atraumatic Resp normal respiratory effort Cardio regular rate Extremity normal capillary refill Skin Wound Narrative: Right axilla ulcer is beefy pink. There is a decrease in the size of the ulcer. There is some hypergranulation present. Right groin and mons pubis with several areas of hidradenitis that is draining and erythematous and painful. Neuro CN's II-XII intact bilaterally Psych Appearance: well kempt Debridement Note Debridement Note Wound debrided: Axillary ulcer Laterality: Right Type of Debridement: Excisional debridement Anesthesia Used: 5% Lidocaine Gel Depth: Down to and including healthy tissue and in the subcutaneous layer Percentage of wound debrided: 100 Instrument Used: 5mm curette Tissue Removed: Non viable tissue and slough, with hypergranulation present. Severity: Fat Layer Exposed Amount of bleeding with debridement: Mild Bleeding Controlled with: Pressure and Compression and gauze Patient tolerated procedure: Patient tolerated procedure well Post-Debridement Measurements and Additional Note: Post-Debridement Measurements/Treatment - Nurse 1 - General Ulcer Assessment Start: 09/25/21 13:12 Freq: Status: Active Protocol: AGUSTIN Activity Type Activity Date Activity User E-Sign Co-Sign Detail Recorded Client Recorded Date Recorded By Document 09/25/21 13:12 [id number] 09/25/21 13:13 09/25/21 13:12 - Today's Visit Information Type of service Follow-up Visit (Physician/TEACHER OF THE SIGHT IMPAIRED ) Arrival Mode Ambulatory Patient Identification Verified (Name & Yes ) Height and Weight Body Mass Index (BMI) 26.5 BMI Classification Overweight Vital Signs Temperature (97.8 F-99.1 F) 98.0 F Temperature Source Temporal Pulse Rate (60-100) 90 Pulse Location Monitor Blood Pressure (90/60-120/80) 98/58 L Blood Pressure Mean (mm Hg) 71 Source Monitor Position Semi-Fowlers Blood Pressure Location Right Arm History Since Last Visit- (Skip if this is Patient's initial visit) Have you changed medications since your No last visit? Any new allergies or adverse reactions No Had a fall/change in ADL's that may No increase risk of falls Signs or symptoms of abuse and/or No neglect since last visit Have you been in the hospital since your No last visit? Has dressing in place as prescribed Yes Has compression in place as prescribed N/A Has offloadiing in place as prescribed N/A Experienced any changes in pain level or No management Left Footwear Regular Shoe Right Footwear Regular Shoe Pain Scale: 0-10 Numeric Is Patient Pain Free? Yes - Nurse 1 - General Ulcer Measurement Start: 09/25/21 13:12 Freq: Status: Active Protocol: Activity Type Activity Date Activity User E-Sign Co-Sign Detail Recorded Client Recorded Date Recorded By Document 09/25/21 13:12 LA [id number] 09/25/21 13:13 LA 09/25/21 13:12 Wound Center Nurse 1 #1 R Axilla -Current Size (cm) - Length 8.6 -Current Size (cm) - Width 2.4 -Current Size (cm) - Depth 0.1 -Total Square Cm 20.64 -Exudate Amt Medium -Exudate Type Serosanguineous -Wound Margin Distinct, Outline Attached -Granulation Amt Large (67-100%) -Granulation Quality Red -Necrosis Amt None Present (0 %) -Texture (Ade-wound Skin Appearance) Assessed, Scarring -Moisture (Ade-wound Skin Appearance) No Abnormality, Assessed -Color (Ade-wound Skin Appearance) No Abnormality, Assessed -Temperature (Ade-wound Skin No Abnormality Appearance) (Pt Warm) -Tenderness on Palpation (Ade-wound No Skin Appearance) -Ulcer Cleansing Rinsed/ Irrigated with Saline -Foul Odor after Cleansing No -Anesthetic Used 4% Lidocaine Solution - Nurse 2 - General Ulcer CM Notes Start: 09/25/21 13:12 Freq: Status: Active Protocol: Activity Type Activity Date Activity User E-Sign Co-Sign Detail Recorded Client Recorded Date Recorded By Document 09/25/21 13:33 PRAVIN [id number] 09/25/21 13:38 PRAVIN 09/25/21 13:33 Wound Center Nurse 2 -Time 13:33 -Correct Patient Yes -Correct Side, Site, Position Yes -Correct Procedure Yes -Procedure Performed Yes -Type of Procedure Debridement -Clinical Debridement Subcutaneous -Tissue Removed Subcutaneous -Post Debridement (cm) - Length 8.7 -Post Debridement (cm) - Width 2.3 -Post Debridement (cm) - Depth 0.2 -Total Square (Post) (cm) 20.01 -Area of Debridement (cm) - Length 8.7 -Area of Debridement (cm) - Width 2.3 -Total Square (Area) (cm) 20.01 -Tunneling No -Undermining/Tunneling No -Circular Undermining No -Wound/Ulcer Outcome Not Healed -Ulcer Cleansing Rinsed/ Irrigated with Saline -Foul Odor after Cleansing No -Bioengineered Tissue No -Bleeding Controlled with Pressure -Treatment Response Procedure Tolerated Well -Offloading No -Debridement - Subq, 1st 20sq cm Yes -Debridement, SubQ, ea addt'l 20sq cm 1 or part thereof Pain Scale: 0-10 Numeric Is Patient Pain Free? Yes - Nurse 3 - General Ulcer D/C NN Start: 09/25/21 13:12 Freq: Status: Active Protocol: Activity Type Activity Date Activity User E-Sign Co-Sign Detail Recorded Client Recorded Date Recorded By Document 09/25/21 13:46 LA [id number] 09/25/21 13:47 LA 09/25/21 13:46 Wound Care Nurse 3 #1 R Axilla -Ulcer Cleansing Rinsed/ Irrigated with Saline -Primary Dressing Applied Aquacel AG 4x4 -Other Dressing ABD pad -Primary Dressing Covered/Secured with Secured with Tape -Aquacel AG 4x4 1 Pain Scale: 0-10 Numeric Is Patient Pain Free? Yes - Visit Discharge Discharge Condition Stable Ambulatory Status Ambulatory Transportation Private Auto Accompanied by mother Assessment/Plan Assessment/Plan (1) Skin ulcer of axilla with fat layer exposed: CODE(S): L98.492 - Non-pressure chronic ulcer of skin of other sites with fat layer exposed (2) Vulval hidradenitis suppurativa: CODE(S): L73.2 - Hidradenitis suppurativa (3) Hidradenitis: CODE(S): L73.2 - Hidradenitis suppurativa (4) Axillary hidradenitis suppurativa: CODE(S): L73.2 - Hidradenitis suppurativa (5) Former smoker: CODE(S): Z87.891 - Personal history of nicotine dependence PLAN: Continue to wash with soap and water, especially the ade wound area at the time of the dressing change. Wound care - Silver alginate dressing topped with gauze daily. In her groin area place intradry dressing to help absorb the drainage from her hidradenitis areas draining. She is having a hidradenitis flare in her bilateral groins with the right side being worse and in her mons pubis area. Encouraged her to continue the Sitz baths with Epsom salt daily. Continue Flagyl. Encouraged increase protein intake to help with healing. Operative cultures positive for Anaerobic cocci and Clostridium clostridioforme. Pathology was consistent with hidradenitis. Pain is better controlled. Follow up one week.
[2021-10-01 14:39] VITALS: BP 149/94; PULSE 104; RESP 16; TEMP 36.5; BMI 26.5
--- NOTE | 2021-10-01 15:09 | PCM.WC.PN ---
History of Present Illness Date of Service: 10/01/21 Chief Complaint: Right axillary hidradenitis ulcer after excision History of Wound: 26 year old female presents for a recent flare of hidradenitis of her right axilla, and bilateral inguinal, mons pubis extending onto labia areas. She has a history of excision of her right axilla hidradenitis in 11/04, and excision of left axillary hidradenitis 12/04. She was last seen 2 years ago for a right axilla flare that was treated with antibiotics. She stopped using Augmentin and started on Clindamycin for 10 days. She saw an improvement in her symptoms of the mons pubis area. Her right axilla area where she had the firmness, opened and started to drain. She states she has been doing the sitz baths daily to help with the inguinal/mons pubis areas. Surgery 08/06/21 - Surgical preparation right axilla with excision recurrent hidradenitis (143 cm2). Size of wound right axilla - 11 x 13 x 3 cm. Wound care - Silver alginate to the wound and top with super absorber/ABD daily. She is to place dry gauze in her bilateral groin to help absorb the drainage from her active hidradenitis. Today she denies fever and nausea and vomiting. She does not have much appetite. Her mother is having her drink protein shakes. Progress of Wound: Right axilla ulcer is beefy pink. There is a decrease in the size of the ulcer. She states she has a new area of hidradenitis on her right lateral breast, it is one spot that is currently scabbed over. Her bilateral groin/mons pubis area is much less angry red since starting back on the antibiotics. Objective Data Objective Data Vital Signs: Vital Signs Temp Pulse Resp BP 97.7 F L 104 H 16 149/94 H 10/01/21 14:39 10/01/21 14:39 10/01/21 14:39 10/01/21 14:39 Oxygen Delivery Method Room Air Weight: 150 lb Body Mass Index (BMI) 26.5 Charges/Coding Procedures Integumentary 111xxx-113xx: 05194 Global Visit Physical Exam Const alert and oriented x3 General Appearance: cooperative HEENT normocephalic Resp normal respiratory effort Cardio regular rate GI non-tender Palpation: soft Extremity normal capillary refill General Extremity: Negative for edema Skin Wound Narrative: Right axilla ulcer is beefy pink and smaller in size. She is still able to put her arm over her head but she states she gets muscle spasms doing this. New hidradenitis blister/scabbed area on right lateral breast. Bilateral groins and mons pubis with multiple areas of outbreak but much less erythematous with decreased drainage since being on antibiotics. Neuro Sensorium / Orientation: awake and alert Psych Appearance: grossly normal Debridement Note Debridement Note Wound debrided: axilla ulcer Laterality: Right Type of Debridement: Excisional debridement Anesthesia Used: 5% Lidocaine Gel Depth: Down to and including healthy tissue and in the subcutaneous layer Percentage of wound debrided: 100 Instrument Used: 5mm curette Tissue Removed: Non viable tissue and slough Severity: Fat Layer Exposed Amount of bleeding with debridement: Mild Bleeding Controlled with: Pressure and Compression and gauze Patient tolerated procedure: Patient tolerated procedure well Post-Debridement Measurements and Additional Note: Post-Debridement Measurements/Treatment - Nurse 1 - General Ulcer Assessment Start: 09/25/21 13:12 Freq: Status: Active Protocol: EDUAR.PARVIZ Activity Type Activity Date Activity User E-Sign Co-Sign Detail Recorded Client Recorded Date Recorded By Document 09/25/21 13:12 KR [id number] 09/25/21 13:13 KR Document 10/01/21 14:39 DL [id number] 10/01/21 14:42 DL 09/25/21 10/01/21 13:12 14:39 - Today's Visit Information Type of service Follow-up Visit Follow-up Visit (Physician/ADMISSIONS CONSULTANT (Physician/ADMISSIONS CONSULTANT ) ) Arrival Mode Ambulatory Ambulatory Transfer Assistance None Accompanied by mom Patient Identification Verified (Name & Yes Yes ) Patient Requires Transmission-Based No Precautions Height and Weight Body Mass Index (BMI) 26.5 26.5 BMI Classification Overweight Overweight Vital Signs Temperature (97.8 F-99.1 F) 98.0 F 97.7 F L Temperature Source Temporal Temporal Pulse Rate (60-100) 90 104 H Pulse Location Monitor Monitor Respiratory Rate (12-18) 16 Respiratory rate source Observation Oxygen Delivery Method Room Air Blood Pressure (90/60-120/80) 98/58 L 149/94 H Blood Pressure Mean (mm Hg) 71 112 Source Monitor Monitor Position Semi-Fowlers Sitting Blood Pressure Location Right Arm Left Forearm History Since Last Visit- (Skip if this is Patient's initial visit) Have you changed medications since your No No last visit? Any new allergies or adverse reactions No No Had a fall/change in ADL's that may No No increase risk of falls Signs or symptoms of abuse and/or No No neglect since last visit Have you been in the hospital since your No No last visit? Has dressing in place as prescribed Yes Yes Has compression in place as prescribed N/A N/A Has offloadiing in place as prescribed N/A N/A Experienced any changes in pain level or No No management Left Footwear Regular Shoe Regular Shoe Right Footwear Regular Shoe Regular Shoe Pain Scale: 0-10 Numeric Is Patient Pain Free? Yes Yes WC - Nurse 1 - General Ulcer Measurement Start: 09/25/21 13:12 Freq: Status: Active Protocol: Activity Type Activity Date Activity User E-Sign Co-Sign Detail Recorded Client Recorded Date Recorded By Document 09/25/21 13:12 KR [id number] 09/25/21 13:13 KR Document 10/01/21 14:39 DL [id number] 10/01/21 14:42 DL 09/25/21 10/01/21 13:12 14:39 Wound Center Nurse 1 #1 R Axilla -Combined with other wound No -Current Size (cm) - Length 8.6 1.6 -Current Size (cm) - Width 2.4 8.4 -Current Size (cm) - Depth 0.1 0.1 -Total Square Cm 20.64 13.44 -Photo Taken No -Epithelialization Small 1-33% -Tunneling No -Undermining/Tunneling No -Circular Undermining No -Exudate Amt Medium Medium -Exudate Type Serosanguineous Serosanguineous -Wound Margin Distinct, Distinct, Outline Outline Attached Attached -Granulation Amt Large (67-100%) Large (67-100%) -Granulation Quality Red Hyper- granulation,Red -Slough/Fibrin No -Necrosis Amt None Present (0 None Present (0 %) %) -Texture (Ade-wound Skin Appearance) Assessed, Assessed, Scarring Fluctuance -Moisture (Ade-wound Skin Appearance) No Abnormality, Assessed Assessed -Color (Ade-wound Skin Appearance) No Abnormality, Assessed Assessed -Temperature (Ade-wound Skin No Abnormality No Abnormality Appearance) (Pt Warm) (Pt Warm) -Tenderness on Palpation (Ade-wound No No Skin Appearance) -Ulcer Cleansing Rinsed/ Soap and Water Irrigated with Saline -Foul Odor after Cleansing No No -Anesthetic Used 4% Lidocaine 4% Lidocaine Solution Solution EDUAR - Nurse 2 - General Ulcer CM Notes Start: 09/25/21 13:12 Freq: Status: Active Protocol: Activity Type Activity Date Activity User E-Sign Co-Sign Detail Recorded Client Recorded Date Recorded By Document 09/25/21 13:33 PRAVIN [id number] 09/25/21 13:38 PRAVIN 09/25/21 13:33 Wound Center Nurse 2 -Time 13:33 -Correct Patient Yes -Correct Side, Site, Position Yes -Correct Procedure Yes -Procedure Performed Yes -Type of Procedure Debridement -Clinical Debridement Subcutaneous -Tissue Removed Subcutaneous -Post Debridement (cm) - Length 8.7 -Post Debridement (cm) - Width 2.3 -Post Debridement (cm) - Depth 0.2 -Total Square (Post) (cm) 20.01 -Area of Debridement (cm) - Length 8.7 -Area of Debridement (cm) - Width 2.3 -Total Square (Area) (cm) 20.01 -Tunneling No -Undermining/Tunneling No -Circular Undermining No -Wound/Ulcer Outcome Not Healed -Ulcer Cleansing Rinsed/ Irrigated with Saline -Foul Odor after Cleansing No -Bioengineered Tissue No -Bleeding Controlled with Pressure -Treatment Response Procedure Tolerated Well -Offloading No -Debridement - Subq, 1st 20sq cm Yes -Debridement, SubQ, ea addt'l 20sq cm 1 or part thereof Pain Scale: 0-10 Numeric Is Patient Pain Free? Yes - Nurse 3 - General Ulcer D/C NN Start: 09/25/21 13:12 Freq: Status: Active Protocol: Activity Type Activity Date Activity User E-Sign Co-Sign Detail Recorded Client Recorded Date Recorded By Document 09/25/21 13:46 LA [id number] 09/25/21 13:47 LA 09/25/21 13:46 Wound Care Nurse 3 #1 R Axilla -Ulcer Cleansing Rinsed/ Irrigated with Saline -Primary Dressing Applied Aquacel AG 4x4 -Other Dressing ABD pad -Primary Dressing Covered/Secured with Secured with Tape -Aquacel AG 4x4 1 Pain Scale: 0-10 Numeric Is Patient Pain Free? Yes WC - Visit Discharge Discharge Condition Stable Ambulatory Status Ambulatory Transportation Private Auto Accompanied by mother Assessment/Plan Assessment/Plan (1) Skin ulcer of axilla with fat layer exposed: CODE(S): L98.492 - Non-pressure chronic ulcer of skin of other sites with fat layer exposed (2) Vulval hidradenitis suppurativa: CODE(S): L73.2 - Hidradenitis suppurativa (3) Hidradenitis: CODE(S): L73.2 - Hidradenitis suppurativa (4) Axillary hidradenitis suppurativa: CODE(S): L73.2 - Hidradenitis suppurativa (5) Former smoker: CODE(S): Z87.891 - Personal history of nicotine dependence (6) Muscle spasm: CODE(S): M62.838 - Other muscle spasm PLAN: Continue to wash with soap and water, especially the ade wound area at the time of the dressing change. Wound care - Silver alginate dressing topped with gauze daily. In her groin area place dry gauze dressing to help absorb the drainage from her hidradenitis areas draining. She is having a hidradenitis flare in her bilateral groins with the right side being worse and in her mons pubis area. She also has a new outbreak on her right lateral breast Encouraged her to continue the Sitz baths with Epsom salt daily. Continue Flagyl. Encouraged increase protein intake to help with healing. Operative cultures positive for Anaerobic cocci and Clostridium clostridioforme. Pathology was consistent with hidradenitis. Pain is better controlled. Renewed Valium (14 tabs) on 09/27/21 for muscle spasms. PDMP reviewed. Follow up one week.
[2021-10-15 14:21] VITALS: BP 141/90; PULSE 109; RESP 16; TEMP 36.3; BMI 26.5
--- NOTE | 2021-10-15 15:02 | WC ---
used own supplies- tape and ABD
--- NOTE | 2021-10-15 15:16 | PCM.WC.PN ---
History of Present Illness Date of Service: 10/15/21 Chief Complaint: Right axillary hidradenitis ulcer after excision History of Wound: 26 year old female presents for a recent flare of hidradenitis of her right axilla, and bilateral inguinal, mons pubis extending onto labia areas. She has a history of excision of her right axilla hidradenitis in 11/04, and excision of left axillary hidradenitis 12/04. She was last seen 2 years ago for a right axilla flare that was treated with antibiotics. She stopped using Augmentin and started on Clindamycin for 10 days. She saw an improvement in her symptoms of the mons pubis area. Her right axilla area where she had the firmness, opened and started to drain. She states she has been doing the sitz baths daily to help with the inguinal/mons pubis areas. Surgery 08/06/21 - Surgical preparation right axilla with excision recurrent hidradenitis (143 cm2). Size of wound right axilla - 11 x 13 x 3 cm. Wound care - Silver alginate to the wound and top with super absorber/ABD daily. She is to place dry gauze in her bilateral groin to help absorb the drainage from her active hidradenitis. Today she denies fever and nausea and vomiting. She does not have much appetite. Her mother is having her drink protein shakes. Progress of Wound: Right axilla ulcer is beefy pink. There is a decrease in the size of the ulcer. Her bilateral groin/mons pubis area continues to have drainage, she is placing gauze to help absorb the drainage. Objective Data Objective Data Vital Signs: Vital Signs Temp Pulse Resp BP 97.3 F L 109 H 16 141/90 H 10/15/21 14:21 10/15/21 14:21 10/15/21 14:21 10/15/21 14:21 Oxygen Delivery Method Room Air Weight: 150 lb Body Mass Index (BMI) 26.5 Charges/Coding Procedures Integumentary 111xxx-113xx: 20077 Global Visit Physical Exam Const alert and oriented x3 General Appearance: cooperative HEENT normocephalic Resp normal respiratory effort Cardio regular rate GI non-tender Palpation: soft Extremity normal capillary refill General Extremity: Negative for edema Skin Wound Narrative: Right axilla ulcer is beefy pink. There is a decrease in the size of the ulcer. Her bilateral groin/mons pubis area continues to have drainage, she is placing gauze to help absorb the drainage. Neuro Sensorium / Orientation: awake and alert Psych Appearance: grossly normal Debridement Note Debridement Note Wound debrided: axilla ulcer Laterality: Right Type of Debridement: Excisional debridement Anesthesia Used: 5% Lidocaine Gel Depth: Down to and including healthy tissue and in the subcutaneous layer Percentage of wound debrided: 100 Instrument Used: 5mm curette Tissue Removed: Non viable tissues and slough Severity: Fat Layer Exposed Amount of bleeding with debridement: Mild Bleeding Controlled with: Pressure and Compression and gauze Patient tolerated procedure: Patient tolerated procedure well Post-Debridement Measurements and Additional Note: Post-Debridement Measurements/Treatment WC - Nurse 1 - General Ulcer Assessment Start: 09/25/21 13:12 Freq: Status: Active Protocol: AGUSTIN Activity Type Activity Date Activity User E-Sign Co-Sign Detail Recorded Client Recorded Date Recorded By Document 09/25/21 13:12 KR [id number] 09/25/21 13:13 KR Document 10/01/21 14:39 DL [id number] 10/01/21 14:42 DL Document 10/15/21 14:21 BM [id number] 10/15/21 14:25 BMF 09/25/21 10/01/21 10/15/21 13:12 14:39 14:21 - Today's Visit Information Type of service Follow-up Visit Follow-up Visit Follow-up Visit (Physician/TRAVELING REPAIR ACCOUNTANT (Physician/TRAVELING REPAIR ACCOUNTANT (Physician/TRAVELING REPAIR ACCOUNTANT ) ) ) Arrival Mode Ambulatory Ambulatory Ambulatory Transfer Assistance None None Accompanied by mom mom Patient Identification Verified (Name & Yes Yes Yes ) Patient Requires Transmission-Based No No Precautions Height and Weight Body Mass Index (BMI) 26.5 26.5 26.5 BMI Classification Overweight Overweight Overweight Vital Signs Temperature (97.8 F-99.1 F) 98.0 F 97.7 F L 97.3 F L Temperature Source Temporal Temporal Temporal Pulse Rate (60-100) 90 104 H 109 H Pulse Location Monitor Monitor Monitor Respiratory Rate (12-18) 16 16 Respiratory rate source Observation Observation Oxygen Delivery Method Room Air Room Air Blood Pressure (90/60-120/80) 98/58 L 149/94 H 141/90 H Blood Pressure Mean (mm Hg) 71 112 107 Source Monitor Monitor Monitor Position Semi-Fowlers Sitting Sitting Blood Pressure Location Right Arm Left Forearm Left Arm History Since Last Visit- (Skip if this is Patient's initial visit) Have you changed medications since your No No No last visit? Any new allergies or adverse reactions No No No Had a fall/change in ADL's that may No No No increase risk of falls Signs or symptoms of abuse and/or No No No neglect since last visit Have you been in the hospital since your No No No last visit? Has dressing in place as prescribed Yes Yes Yes Has compression in place as prescribed N/A N/A N/A Has offloadiing in place as prescribed N/A N/A N/A Experienced any changes in pain level or No No No management Left Footwear Regular Shoe Regular Shoe Regular Shoe Right Footwear Regular Shoe Regular Shoe Regular Shoe Pain Scale: 0-10 Numeric Is Patient Pain Free? Yes Yes Yes WC - Nurse 1 - General Ulcer Measurement Start: 09/25/21 13:12 Freq: Status: Active Protocol: Activity Type Activity Date Activity User E-Sign Co-Sign Detail Recorded Client Recorded Date Recorded By Document 09/25/21 13:12 KR [id number] 09/25/21 13:13 KR Document 10/01/21 14:39 DL [id number] 10/01/21 14:42 DL Document 10/15/21 14:21 [facility] [id number] 10/15/21 14:25 [facility] 09/25/21 10/01/21 10/15/21 13:12 14:39 14:21 Wound Center Nurse 1 #1 R Axilla -Combined with other wound No No -Current Size (cm) - Length 8.6 1.6 0.7 -Current Size (cm) - Width 2.4 8.4 8 -Current Size (cm) - Depth 0.1 0.1 0.1 -Total Square Cm 20.64 13.44 5.6 -Date of Last Picture (Recall this 10/15/21 field) -Photo Taken No Yes -Epithelialization Small 1-33% Medium 34-66% -Tunneling No No -Undermining/Tunneling No No -Circular Undermining No No -Exudate Amt Medium Medium Small -Exudate Type Serosanguineous Serosanguineous Serosanguineous -Wound Margin Distinct, Distinct, Distinct, Outline Outline Outline Attached Attached Attached -Granulation Amt Large (67-100%) Large (67-100%) Large (67-100%) -Granulation Quality Red Hyper- Red granulation,Red -Slough/Fibrin No Yes -Necrosis Amt None Present (0 None Present (0 Small (1-33%) %) %) -Necrotic Tissue Type Adherent Slough -Texture (Filomena-wound Skin Appearance) Assessed, Assessed, Assessed, Scarring Fluctuance Scarring -Moisture (Filomena-wound Skin Appearance) No Abnormality, Assessed Assessed,Dry/ Assessed Scaly -Color (Filomean-wound Skin Appearance) No Abnormality, Assessed Assessed Assessed -Temperature (Filomena-wound Skin No Abnormality No Abnormality No Abnormality Appearance) (Pt Warm) (Pt Warm) (Pt Warm) -Tenderness on Palpation (Filomena-wound No No No Skin Appearance) -Ulcer Cleansing Rinsed/ Soap and Water Soap and Water Irrigated with Saline -Foul Odor after Cleansing No No No -Anesthetic Used 4% Lidocaine 4% Lidocaine 4% Lidocaine Solution Solution Solution WC - Nurse 2 - General Ulcer CM Notes Start: 09/25/21 13:12 Freq: Status: Active Protocol: Activity Type Activity Date Activity User E-Sign Co-Sign Detail Recorded Client Recorded Date Recorded By Document 09/25/21 13:33 [id number] 09/25/21 13:38 Document 10/01/21 15:23 PL [id number] 10/01/21 15:24 PL Document 10/15/21 14:46 [id number] 10/15/21 14:47 09/25/21 10/01/21 10/15/21 13:33 15:23 14:46 Wound Center Nurse 2 #1 R Axilla -Time 13:33 15:01 14:46 -Correct Patient Yes Yes Yes -Correct Side, Site, Position Yes Yes Yes -Correct Procedure Yes Yes Yes -Procedure Performed Yes Yes Yes -Type of Procedure Debridement Debridement Debridement -Clinical Debridement Subcutaneous Subcutaneous Subcutaneous -Tissue Removed Subcutaneous Subcutaneous Subcutaneous -Post Debridement (cm) - Length 8.7 8.0 0.8 -Post Debridement (cm) - Width 2.3 1.5 7.3 -Post Debridement (cm) - Depth 0.2 1.2 0.1 -Total Square (Post) (cm) 20.01 12.00 5.84 -Area of Debridement (cm) - Length 8.7 8.0 0.8 -Area of Debridement (cm) - Width 2.3 1.5 7.3 -Total Square (Area) (cm) 20.01 12.00 5.84 -Tunneling No No No -Undermining/Tunneling No No No -Circular Undermining No No No -Wound/Ulcer Outcome Not Healed Not Healed Not Healed -Ulcer Cleansing Rinsed/ Rinsed/ Rinsed/ Irrigated with Irrigated with Irrigated with Saline Saline Saline -Foul Odor after Cleansing No No No -Bioengineered Tissue No No No -Bleeding Controlled with Pressure Pressure Pressure -Treatment Response Procedure Procedure Procedure Tolerated Well Tolerated Well Tolerated Well -Offloading No No -Debridement - Subq, 1st 20sq cm Yes Yes Yes -Debridement, SubQ, ea addt'l 20sq cm 1 or part thereof Pain Scale: 0-10 Numeric Is Patient Pain Free? Yes Yes Yes - Nurse 3 - General Ulcer D/C NN Start: 09/25/21 13:12 Freq: Status: Active Protocol: Activity Type Activity Date Activity User E-Sign Co-Sign Detail Recorded Client Recorded Date Recorded By Document 09/25/21 13:46 [id number] 09/25/21 13:47 Document 10/01/21 15:09 [facility] [id number] 10/01/21 15:10 [facility] Document 10/15/21 15:01 PR [id number] 10/15/21 15:03 PR 09/25/21 10/01/21 10/15/21 13:46 15:09 15:01 Wound Care Nurse 3 #1 R Axilla -Ulcer Cleansing Rinsed/ Rinsed/ Rinsed/ Irrigated with Irrigated with Irrigated with Saline Saline Saline -Foul Odor after Cleansing No No -Negative Pressure Wound Therapy N/A -Primary Dressing Applied Aquacel AG 4x4 Aquacel AG 4x4 Aquacel AG 4x4 -Other Dressing ABD pad -Primary Dressing Covered/Secured with Secured with Secured with Tape Tape,Other -Other Covering ABD -Aquacel AG 4x4 1 1 0 Treatment Response Procedure Tolerated Well Pain Scale: 0-10 Numeric Is Patient Pain Free? Yes Yes Yes WC - Visit Discharge Discharge Condition Stable Stable Stable Ambulatory Status Ambulatory Ambulatory Ambulatory Transportation Private Auto Private Auto Private Auto Accompanied by mother MOM Medication Reconcilliation completed & Yes provided to patient/care provider Clinical Summary of Care Provided Yes 10/15/21 15:02 Wound Center by Ajay Perry used own supplies- tape and ABD Initialized on 10/15/21 15:02 - END OF NOTE Assessment/Plan Assessment/Plan (1) Skin ulcer of axilla with fat layer exposed: CODE(S): L98.492 - Non-pressure chronic ulcer of skin of other sites with fat layer exposed (2) Vulval hidradenitis suppurativa: CODE(S): L73.2 - Hidradenitis suppurativa (3) Hidradenitis: CODE(S): L73.2 - Hidradenitis suppurativa (4) Axillary hidradenitis suppurativa: CODE(S): L73.2 - Hidradenitis suppurativa (5) Former smoker: CODE(S): Z87.891 - Personal history of nicotine dependence (6) Muscle spasm: CODE(S): M62.838 - Other muscle spasm PLAN: Continue to wash with soap and water, especially the filomena wound area at the time of the dressing change. Wound care - Silver alginate dressing topped with gauze daily. In her groin area place dry gauze dressing to help absorb the drainage from her hidradenitis areas draining. She is having a hidradenitis flare in her bilateral groins with the right side being worse and in her mons pubis area. She also has a new outbreak on her right lateral breast Encouraged her to continue the Sitz baths with Epsom salt daily. Completed Flagyl. Encouraged increase protein intake to help with healing. Operative cultures positive for Anaerobic cocci and Clostridium clostridioforme. Pathology was consistent with hidradenitis. Pain is better controlled. Follow up one week.
== END 2021-10-23 23:59 | disposition home or self-care (01) ==
LOC: WC 14:15
PROVIDERS: PCP Internal Medicine; Visit Provider Nurse Practitioner Family
DX: L73.2 Hidradenitis suppurativa (principal); L98.492 Non-pressure chronic ulcer of skin of other sites with fat layer exposed; M62.838 Other muscle spasm; Z87.891 Personal history of nicotine dependence
CPT/HCPCS: 11042; 11045

== ENCOUNTER 2021-11-19 14:00 | Outpatient (RCR) | payer MEDICAID, SELFPAY ==
[2021-10-24 00:59] VITALS: BP 141/90; PULSE 109; RESP 16; TEMP 36.3; BMI 26.5
--- NOTE | 2021-11-05 15:22 | PCM.WC.PN ---
History of Present Illness Date of Service: 11/05/21 Chief Complaint: Right axillary hidradenitis ulcer after excision History of Wound: 26 year old female presents for a recent flare of hidradenitis of her right axilla, and bilateral inguinal, mons pubis extending onto labia areas. She has a history of excision of her right axilla hidradenitis in 11/04, and excision of left axillary hidradenitis 12/04. She was last seen 2 years ago for a right axilla flare that was treated with antibiotics. She stopped using Augmentin and started on Clindamycin for 10 days. She saw an improvement in her symptoms of the mons pubis area. Her right axilla area where she had the firmness, opened and started to drain. She states she has been doing the sitz baths daily to help with the inguinal/mons pubis areas. Surgery 08/06/21 - Surgical preparation right axilla with excision recurrent hidradenitis (143 cm2). Size of wound right axilla - 11 x 13 x 3 cm. Wound care - Silver alginate to the wound and top with gauze. She is to place dry gauze in her bilateral groin to help absorb the drainage from her active hidradenitis. Today she denies fever and nausea and vomiting. She does not have much appetite. Her mother is having her drink protein shakes. Progress of Wound: Right axilla ulcer is beefy pink. There is a decrease in the size of the ulcer. Objective Data Objective Data Vital Signs: Vital Signs Temp Pulse Resp BP 97.3 F L 109 H 16 141/90 H 10/24/21 00:59 10/24/21 00:59 10/24/21 00:59 10/24/21 00:59 Weight: 150 lb Body Mass Index (BMI) 26.5 Charges/Coding Procedures Integumentary 111xxx-113xx: 34730 Global Visit Physical Exam Const alert and oriented x3 General Appearance: cooperative HEENT normocephalic Resp normal respiratory effort Cardio regular rate GI non-tender Palpation: soft Extremity normal capillary refill General Extremity: Negative for edema Skin Wound Narrative: Right axilla ulcer is beefy pink. There is a decrease in the size of the ulcer. Her bilateral groin/mons pubis area continues to have drainage, she is placing gauze to help absorb the drainage. Neuro Sensorium / Orientation: awake and alert Psych Appearance: grossly normal Debridement Note Debridement Note Wound debrided: Axilla ulcer Laterality: Right Type of Debridement: Excisional debridement Anesthesia Used: 5% Lidocaine Gel Depth: Down to and including healthy tissue and in the subcutaneous layer Percentage of wound debrided: 100 Instrument Used: 5mm curette Tissue Removed: Nonviable tissue and slough Severity: Fat Layer Exposed Amount of bleeding with debridement: Mild Bleeding Controlled with: Pressure Patient tolerated procedure: Patient tolerated procedure well Post-Debridement Measurements and Additional Note: Post-Debridement Measurements/Treatment WC - Nurse 2 - General Ulcer CM Notes Start: 11/05/21 13:34 Freq: Status: Active Protocol: Activity Type Activity Date Activity User E-Sign Co-Sign Detail Recorded Client Recorded Date Recorded By Document 11/05/21 13:34 PRAVIN [id number] 11/05/21 13:35 PRAVIN 11/05/21 13:34 Wound Center Nurse 2 #1 R Axilla -Time 13:35 -Correct Patient Yes -Correct Side, Site, Position Yes -Correct Procedure Yes -Procedure Performed Yes -Type of Procedure Debridement -Clinical Debridement Subcutaneous -Tissue Removed Subcutaneous -Post Debridement (cm) - Length 1.1 -Post Debridement (cm) - Width 4.8 -Post Debridement (cm) - Depth 0.1 -Total Square (Post) (cm) 5.28 -Area of Debridement (cm) - Length 1.1 -Area of Debridement (cm) - Width 4.8 -Total Square (Area) (cm) 5.28 -Tunneling No -Undermining/Tunneling No -Circular Undermining No -Wound/Ulcer Outcome Not Healed -Ulcer Cleansing Rinsed/ Irrigated with Saline -Foul Odor after Cleansing No -Bioengineered Tissue No -Bleeding Controlled with Pressure -Treatment Response Procedure Tolerated Well -Offloading No -Debridement - Subq, 1st 20sq cm Yes Pain Scale: 0-10 Numeric Is Patient Pain Free? Yes WC - Nurse 3 - General Ulcer D/C NN Start: 11/05/21 13:34 Freq: Status: Active Protocol: Activity Type Activity Date Activity User E-Sign Co-Sign Detail Recorded Client Recorded Date Recorded By Document 11/05/21 13:51 LA [id number] 11/05/21 13:52 LA 11/05/21 13:51 Wound Care Nurse 3 #1 R Axilla -Ulcer Cleansing Rinsed/ Irrigated with Saline -Primary Dressing Applied Aquacel AG 2x2 -Primary Dressing Covered/Secured with Dry Gauze, Secured with Tape -Aquacel AG 2x2 1 Pain Scale: 0-10 Numeric Is Patient Pain Free? Yes WC - Visit Discharge Discharge Condition Stable Ambulatory Status Ambulatory Transportation Private Auto Assessment/Plan Assessment/Plan (1) Skin ulcer of axilla with fat layer exposed: CODE(S): L98.492 - Non-pressure chronic ulcer of skin of other sites with fat layer exposed (2) Vulval hidradenitis suppurativa: CODE(S): L73.2 - Hidradenitis suppurativa (3) Hidradenitis: CODE(S): L73.2 - Hidradenitis suppurativa (4) Axillary hidradenitis suppurativa: CODE(S): L73.2 - Hidradenitis suppurativa (5) Former smoker: CODE(S): Z87.891 - Personal history of nicotine dependence (6) Muscle spasm: CODE(S): M62.838 - Other muscle spasm PLAN: Continue to wash with soap and water, especially the filomena wound area at the time of the dressing change. Wound care - Silver alginate dressing topped with gauze daily. In her groin area place dry gauze dressing to help absorb the drainage from her hidradenitis areas draining. She is having a hidradenitis flare in her bilateral groins with the right side being worse and in her mons pubis area. She also has a new outbreak on her right lateral breast Encouraged her to continue the Sitz baths with Epsom salt daily. Completed Flagyl. Encouraged increase protein intake to help with healing. Operative cultures positive for Anaerobic cocci and Clostridium clostridioforme. Pathology was consistent with hidradenitis. Follow up two weeks.
[2021-11-19 14:00] VITALS: BP 119/66; PULSE 94; TEMP 36.2; BMI 26.5
--- NOTE | 2021-11-19 14:48 | PCM.WC.PN ---
History of Present Illness Date of Service: 11/19/21 Chief Complaint: Right axillary hidradenitis ulcer after excision History of Wound: 26 year old female presents for a recent flare of hidradenitis of her right axilla, and bilateral inguinal, mons pubis extending onto labia areas. She has a history of excision of her right axilla hidradenitis in 11/04, and excision of left axillary hidradenitis 12/04. She was last seen 2 years ago for a right axilla flare that was treated with antibiotics. She stopped using Augmentin and started on Clindamycin for 10 days. She saw an improvement in her symptoms of the mons pubis area. Her right axilla area where she had the firmness, opened and started to drain. She states she has been doing the sitz baths daily to help with the inguinal/mons pubis areas. Surgery 08/06/21 - Surgical preparation right axilla with excision recurrent hidradenitis (143 cm2). Size of wound right axilla - 11 x 13 x 3 cm. Wound care - Silver alginate to the wound and top with gauze. She is to place dry gauze in her bilateral groin to help absorb the drainage from her active hidradenitis. Today she denies fever and nausea and vomiting. She does not have much appetite. Her mother is having her drink protein shakes. Progress of Wound: Her ulcer is smaller in size, but she has a small pin hole that opened in the medial aspect of the axilla. The lateral ulcer has hypergranulation and is very beefy pink. Objective Data Objective Data Vital Signs: Vital Signs Temp Pulse Resp BP 97.1 F L 94 16 119/66 11/19/21 14:00 11/19/21 14:00 10/24/21 00:59 11/19/21 14:00 Weight: 150 lb Body Mass Index (BMI) 26.5 Charges/Coding Procedures Integumentary 111xxx-113xx: [id number] Jacque subq tissue 20 sq cm/< Physical Exam Const alert and oriented x3 General Appearance: cooperative HEENT normocephalic Resp normal respiratory effort Cardio regular rate GI non-tender Palpation: soft Extremity normal capillary refill General Extremity: Negative for edema Skin Skin Narrative: Bilateral groin/mons pubis area continues to have a mild break out of hidradenitis, but is much improved with very little drainage. The angry redness has resolved. Wound Narrative: Her ulcer is smaller in size, but she has a small pin hole that opened in the medial aspect of the axilla. The lateral ulcer has hypergranulation and is very beefy pink. Neuro Sensorium / Orientation: awake and alert Psych Appearance: well kempt Debridement Note Debridement Note Wound debrided: Axilla ulcer - lateral and medial Laterality: Right Type of Debridement: Excisional debridement Anesthesia Used: 5% Lidocaine Gel Depth: Down to and including healthy tissue and in the subcutaneous layer Percentage of wound debrided: 100 Instrument Used: 3mm curette Tissue Removed: Nonviable tissue and slough, hypergranulation tissue Severity: Fat Layer Exposed Amount of bleeding with debridement: Mild Bleeding Controlled with: Pressure, Compression and gauze and Silver Nitrate (silver nitrate used on the area of hypergranulation to see if this helps prevent it from returning.) Patient tolerated procedure: Patient tolerated procedure well Post-Debridement Measurements and Additional Note: Post-Debridement Measurements/Treatment - Nurse 1 - General Ulcer Assessment Start: 11/05/21 13:34 Freq: Status: Active Protocol: EDUAR.PARVIZ Activity Type Activity Date Activity User E-sign Co-sign Detail Recorded Client Recorded Date Recorded By Document 11/19/21 14:00 LA [id number] 11/19/21 14:03 LA 11/19/21 14:00 - Today's Visit Information Type of service Follow-up Visit (Physician/TELECOMMUNICATIONS FIELD TECHNICIAN ) Arrival Mode Ambulatory Patient Identification Verified (Name & Yes ) Height and Weight Body Mass Index (BMI) 26.5 BMI Classification Overweight Vital Signs Temperature (97.8 F-99.1 F) 97.1 F L Temperature Source Temporal Pulse Rate (60-100) 94 Pulse Location Monitor Blood Pressure (90/60-120/80) 119/66 Blood Pressure Mean (mm Hg) 83 Source Monitor Position Semi-Fowlers Blood Pressure Location Right Arm History Since Last Visit- (Skip if this is Patient's initial visit) Have you changed medications since your No last visit? Any new allergies or adverse reactions No Had a fall/change in ADL's that may No increase risk of falls Signs or symptoms of abuse and/or No neglect since last visit Have you been in the hospital since your No last visit? Has dressing in place as prescribed Yes Has compression in place as prescribed N/A Has offloadiing in place as prescribed N/A Experienced any changes in pain level or No management Left Footwear Regular Shoe Right Footwear Regular Shoe Pain Scale: 0-10 Numeric Is Patient Pain Free? Yes - Nurse 1 - General Ulcer Measurement Start: 11/05/21 13:34 Freq: Status: Active Protocol: Activity Type Activity Date Activity User E-sign Co-sign Detail Recorded Client Recorded Date Recorded By Document 11/19/21 14:00 LA [id number] 11/19/21 14:03 LA 11/19/21 14:00 Wound Center Nurse 1 #1 R Axilla -Current Size (cm) - Length 0.6 -Current Size (cm) - Width 3 -Current Size (cm) - Depth 0.1 -Total Square Cm 1.8 -Exudate Amt Small -Exudate Type Serosanguineous -Wound Margin Distinct, Outline Attached -Granulation Amt Small (1-33%) -Granulation Quality [place] -Necrosis Amt None Present (0 %) -Texture (Ade-wound Skin Appearance) Assessed, Scarring -Moisture (Ade-wound Skin Appearance) No Abnormality, Assessed -Temperature (Ade-wound Skin No Abnormality Appearance) (Pt Warm) -Tenderness on Palpation (Ade-wound No Skin Appearance) -Ulcer Cleansing Rinsed/ Irrigated with Saline -Foul Odor after Cleansing No -Anesthetic Used 5% Lidocaine Gel - Nurse 2 - General Ulcer CM Notes Start: 11/05/21 13:34 Freq: Status: Active Protocol: Activity Type Activity Date Activity User E-sign Co-sign Detail Recorded Client Recorded Date Recorded By Document 11/05/21 13:34 [id number] 11/05/21 13:35 PRAVIN 11/05/21 13:34 Wound Center Nurse 2 -Time 13:35 -Correct Patient Yes -Correct Side, Site, Position Yes -Correct Procedure Yes -Procedure Performed Yes -Type of Procedure Debridement -Clinical Debridement Subcutaneous -Tissue Removed Subcutaneous -Post Debridement (cm) - Length 1.1 -Post Debridement (cm) - Width 4.8 -Post Debridement (cm) - Depth 0.1 -Total Square (Post) (cm) 5.28 -Area of Debridement (cm) - Length 1.1 -Area of Debridement (cm) - Width 4.8 -Total Square (Area) (cm) 5.28 -Tunneling No -Undermining/Tunneling No -Circular Undermining No -Wound/Ulcer Outcome Not Healed -Ulcer Cleansing Rinsed/ Irrigated with Saline -Foul Odor after Cleansing No -Bioengineered Tissue No -Bleeding Controlled with Pressure -Treatment Response Procedure Tolerated Well -Offloading No -Debridement - Subq, 1st 20sq cm Yes Pain Scale: 0-10 Numeric Is Patient Pain Free? Yes - Nurse 3 - General Ulcer D/C NN Start: 11/05/21 13:34 Freq: Status: Active Protocol: Activity Type Activity Date Activity User E-sign Co-sign Detail Recorded Client Recorded Date Recorded By Document 11/05/21 13:51 LA [id number] 11/05/21 13:52 LA 11/05/21 13:51 Wound Care Nurse 3 #1 R Axilla -Ulcer Cleansing Rinsed/ Irrigated with Saline -Primary Dressing Applied Aquacel AG 2x2 -Primary Dressing Covered/Secured with Dry Gauze, Secured with Tape -Aquacel AG 2x2 1 Pain Scale: 0-10 Numeric Is Patient Pain Free? Yes WC - Visit Discharge Discharge Condition Stable Ambulatory Status Ambulatory Transportation Private Auto Assessment/Plan Assessment/Plan (1) Skin ulcer of axilla with fat layer exposed: CODE(S): L98.492 - Non-pressure chronic ulcer of skin of other sites with fat layer exposed (2) Vulval hidradenitis suppurativa: CODE(S): L73.2 - Hidradenitis suppurativa (3) Hidradenitis: CODE(S): L73.2 - Hidradenitis suppurativa (4) Axillary hidradenitis suppurativa: CODE(S): L73.2 - Hidradenitis suppurativa (5) Former smoker: CODE(S): Z87.891 - Personal history of nicotine dependence (6) Muscle spasm: CODE(S): M62.838 - Other muscle spasm PLAN: Plan Continue to wash with soap and water, especially the ade wound area at the time of the dressing change. Wound care - Silver alginate dressing topped with gauze daily. In her groin area place dry gauze dressing to help absorb the drainage from her hidradenitis areas draining. She is having a hidradenitis flare in her bilateral groins with the right side being worse and in her mons pubis area, which has improved with the Sitz baths and keeping the drainage under control. Encouraged her to continue the Sitz baths with Epsom salt daily. Completed Flagyl. Encouraged increase protein intake to help with healing. Operative cultures positive for Anaerobic cocci and Clostridium clostridioforme. Pathology was consistent with hidradenitis. Follow up two weeks.
== END 2021-11-22 23:59 | disposition home or self-care (01) ==
LOC: WC 14:00
PROVIDERS: PCP Internal Medicine; Visit Provider Nurse Practitioner Family
DX: L73.2 Hidradenitis suppurativa (principal); L98.492 Non-pressure chronic ulcer of skin of other sites with fat layer exposed; M62.838 Other muscle spasm; Z87.891 Personal history of nicotine dependence
CPT/HCPCS: 11042

== ENCOUNTER 2021-12-10 14:30 | Outpatient (RCR) | payer MEDICAID, SELFPAY ==
[2021-11-23 00:35] VITALS: BP 119/66; PULSE 94; RESP 16; TEMP 36.2; BMI 26.5
[2021-12-03 14:06] VITALS: BP 124/76; PULSE 78; TEMP 36.4; BMI 26.5
--- NOTE | 2021-12-03 14:58 | PCM.WC.PN ---
History of Present Illness Date of Service: 12/03/21 Chief Complaint: Right axillary hidradenitis ulcer after excision History of Wound: 26 year old female presents for a recent flare of hidradenitis of her right axilla, and bilateral inguinal, mons pubis extending onto labia areas. She has a history of excision of her right axilla hidradenitis in 11/04, and excision of left axillary hidradenitis 12/04. She was last seen 2 years ago for a right axilla flare that was treated with antibiotics. She stopped using Augmentin and started on Clindamycin for 10 days. She saw an improvement in her symptoms of the mons pubis area. Her right axilla area where she had the firmness, opened and started to drain. She states she has been doing the sitz baths daily to help with the inguinal/mons pubis areas. Surgery 08/06/21 - Surgical preparation right axilla with excision recurrent hidradenitis (143 cm2). Size of wound right axilla - 11 x 13 x 3 cm. Wound care - Stop Silver alginate and start Justa to the wound and top with gauze daily. She is to place dry gauze in her bilateral groin to help absorb the drainage from her active hidradenitis. Wound culture obtained today, 12/03/21, due to an increase in size of the ulcer. It may necessitate the need for treatment with antibiotics. Today she denies fever and nausea and vomiting. She does not have much appetite. Her mother is having her drink protein shakes. Progress of Wound: Right axilla ulcer cluster is now one ulcer, it is slightly larger compared to the previous week. Will obtain a wound culture. Her ade wound has areas of excoriation most likely from tape. Objective Data Objective Data Vital Signs: Vital Signs Temp Pulse Resp BP 97.6 F L 78 16 124/76 H 12/03/21 14:06 12/03/21 14:06 11/23/21 00:35 12/03/21 14:06 Weight: 150 lb Body Mass Index (BMI) 26.5 Charges/Coding Procedures Integumentary 111xxx-113xx: 36353 Jacque subq tissue 20 sq cm/< Physical Exam Const alert and oriented x3 General Appearance: cooperative HEENT normocephalic Resp normal respiratory effort Cardio regular rate GI non-tender Palpation: soft Extremity normal capillary refill General Extremity: Negative for edema Skin Skin Narrative: Bilateral groin/mons pubis area continues to have a mild break out of hidradenitis, but is much improved with very little drainage. The angry redness has resolved. Wound Narrative: Her right axilla ulcer is larger in size. The base of the ulcer is beefy pink. She has some areas of excoriation on her ade wound that appear to be from tape. Neuro Sensorium / Orientation: awake and alert Psych Appearance: well kempt Debridement Note Debridement Note Wound debrided: Axilla ulcer Laterality: Right Type of Debridement: Excisional debridement Anesthesia Used: 5% Lidocaine Gel Depth: Down to and including healthy tissue and in the subcutaneous layer Percentage of wound debrided: 100 Instrument Used: 3mm curette Tissue Removed: Nonviable tissue and slough, hypergranulation tissue Severity: Fat Layer Exposed Amount of bleeding with debridement: Mild Bleeding Controlled with: Pressure, Compression and gauze and Silver Nitrate (silver nitrate used on the area of hypergranulation to see if this helps prevent it from returning.) Patient tolerated procedure: Patient tolerated procedure well Post-Debridement Measurements and Additional Note: Post-Debridement Measurements/Treatment EDUAR - Nurse 1 - General Ulcer Assessment Start: 12/03/21 14:06 Freq: Status: Active Protocol: AGUSTIN Activity Type Activity Date Activity User E-sign Co-sign Detail Recorded Client Recorded Date Recorded By Document 12/03/21 14:06 LA [id number] 12/03/21 14:08 LA 12/03/21 14:06 - Today's Visit Information Type of service Follow-up Visit (Physician/DELI/BAKERY ASSOCIATE ) Arrival Mode Ambulatory Patient Identification Verified (Name & Yes ) Height and Weight Body Mass Index (BMI) 26.5 BMI Classification Overweight Vital Signs Temperature (97.8 F-99.1 F) 97.6 F L Temperature Source Temporal Pulse Rate (60-100) 78 Pulse Location Monitor Blood Pressure (90/60-120/80) 124/76 H Blood Pressure Mean (mm Hg) 92 Source Monitor Position Semi-Fowlers Blood Pressure Location Right Arm History Since Last Visit- (Skip if this is Patient's initial visit) Have you changed medications since your No last visit? Any new allergies or adverse reactions No Had a fall/change in ADL's that may No increase risk of falls Signs or symptoms of abuse and/or No neglect since last visit Have you been in the hospital since your No last visit? Has dressing in place as prescribed Yes Has compression in place as prescribed N/A Has offloadiing in place as prescribed N/A Experienced any changes in pain level or No management Left Footwear Regular Shoe Right Footwear Regular Shoe Pain Scale: 0-10 Numeric Is Patient Pain Free? Yes - Nurse 1 - General Ulcer Measurement Start: 12/03/21 14:06 Freq: Status: Active Protocol: Activity Type Activity Date Activity User E-sign Co-sign Detail Recorded Client Recorded Date Recorded By Document 12/03/21 14:06 LA [id number] 12/03/21 14:08 LA 12/03/21 14:06 Wound Center Nurse 1 #4 R AXILLA -Current Size (cm) - Length 1 -Current Size (cm) - Width 2.3 -Current Size (cm) - Depth 0.1 -Total Square Cm 2.3 -Exudate Amt Small -Exudate Type Serosanguineous -Wound Margin Distinct, Outline Attached -Granulation Amt Medium (34-66%) -Granulation Quality Red -Necrosis Amt Small (1-33%) -Necrotic Tissue Type Adherent Slough -Texture (Ade-wound Skin Appearance) Assessed, Scarring -Moisture (Ade-wound Skin Appearance) No Abnormality, Assessed -Color (Ade-wound Skin Appearance) No Abnormality, Assessed -Temperature (Ade-wound Skin No Abnormality Appearance) (Pt Warm) -Tenderness on Palpation (Ade-wound No Skin Appearance) -Ulcer Cleansing Rinsed/ Irrigated with Saline -Foul Odor after Cleansing No -Anesthetic Used 5% Lidocaine Gel - Nurse 2 - General Ulcer CM Notes Start: 12/03/21 14:06 Freq: Status: Active Protocol: Activity Type Activity Date Activity User E-sign Co-sign Detail Recorded Client Recorded Date Recorded By Document 12/03/21 14:42 PRAVIN [id number] 12/03/21 14:45 PRAVIN 12/03/21 14:42 Wound Center Nurse 2 #3 R AXILLA MED -Time 14:43 -Correct Patient No -Correct Side, Site, Position No -Correct Procedure No -Procedure Performed No -Tunneling No -Undermining/Tunneling No -Circular Undermining No -Wound/Ulcer Outcome Converted -Ulcer Cleansing Rinsed/ Irrigated with Saline -Foul Odor after Cleansing No -Bioengineered Tissue No -Bleeding Controlled with Pressure -Treatment Response Procedure Tolerated Well -Offloading No -Debridement - Subq, 1st 20sq cm Yes #4 R AXILLA -Time 14:44 -Correct Patient Yes -Correct Side, Site, Position Yes -Correct Procedure Yes -Procedure Performed Yes -Type of Procedure Debridement -Clinical Debridement Subcutaneous -Tissue Removed Subcutaneous -Post Debridement (cm) - Length 2.3 -Post Debridement (cm) - Width 3.0 -Post Debridement (cm) - Depth 0.4 -Total Square (Post) (cm) 6.90 -Area of Debridement (cm) - Length 2.3 -Area of Debridement (cm) - Width 3.0 -Total Square (Area) (cm) 6.90 -Tunneling No -Undermining/Tunneling No -Circular Undermining No -Wound/Ulcer Outcome Not Healed -Ulcer Cleansing Rinsed/ Irrigated with Saline -Foul Odor after Cleansing No -Bioengineered Tissue No -Bleeding Controlled with Pressure -Treatment Response Procedure Tolerated Well -Offloading No -Debridement - Subq, 1st 20sq cm Yes Pain Scale: 0-10 Numeric Is Patient Pain Free? Yes - Nurse 3 - General Ulcer D/C NN Start: 12/03/21 14:06 Freq: Status: Active Protocol: Activity Type Activity Date Activity User E-sign Co-sign Detail Recorded Client Recorded Date Recorded By Document 12/03/21 14:52 [id number] 12/03/21 14:52 12/03/21 14:52 Wound Care Nurse 3 #4 R AXILLA -Ulcer Cleansing Rinsed/ Irrigated with Saline -Foul Odor after Cleansing No -Negative Pressure Wound Therapy N/A -Primary Dressing Applied Promogran Justa Matter -Primary Dressing Covered/Secured with Dry Gauze, Secured with Tape -Promogran Justa Matter 1 Pain Scale: 0-10 Numeric Is Patient Pain Free? Yes - Visit Discharge Discharge Condition Stable Ambulatory Status Ambulatory Transportation Private Auto Medication Reconcilliation completed & Yes provided to patient/care provider Clinical Summary of Care Provided Yes Assessment/Plan Assessment/Plan (1) Skin ulcer of axilla with fat layer exposed: CODE(S): L98.492 - Non-pressure chronic ulcer of skin of other sites with fat layer exposed (2) Vulval hidradenitis suppurativa: CODE(S): L73.2 - Hidradenitis suppurativa (3) Hidradenitis: CODE(S): L73.2 - Hidradenitis suppurativa (4) Former smoker: CODE(S): Z87.891 - Personal history of nicotine dependence PLAN: Plan Continue to wash with soap and water, especially the ade wound area at the time of the dressing change. Wound care - Stop silver alginate dressing and start Justa topped with gauze daily. In her groin area place dry gauze dressing to help absorb the drainage from her hidradenitis areas draining. She is having a hidradenitis flare in her bilateral groins with the right side being worse and in her mons pubis area, which has improved with the Sitz baths and keeping the drainage under control. Encouraged her to continue the Sitz baths with Epsom salt daily. Completed Flagyl. Wound culture obtained 12/03/21, depending on the results of the culture, it may necessitate the treatment with antibitoics. Encouraged increase protein intake to help with healing. Operative cultures positive for Anaerobic cocci and Clostridium clostridioforme. Pathology was consistent with hidradenitis. Follow up one week.
[2021-12-10 14:36] VITALS: BP 131/80; PULSE 111; RESP 20; TEMP 37.2; BMI 26.5
--- NOTE | 2021-12-10 15:13 | PN.PCM_ITS ---
History of Present Illness Date of Service: 12/10/21 Chief Complaint: Right axillary hidradenitis ulcer after excision History of Wound: 26 year old female presents for a recent flare of hidradenitis of her right axilla, and bilateral inguinal, mons pubis extending onto labia areas. She has a history of excision of her right axilla hidradenitis in 11/04, and excision of left axillary hidradenitis 12/04. She was last seen 2 years ago for a right axilla flare that was treated with antibiotics. She stopped using Augmentin and started on Clindamycin for 10 days. She saw an improvement in her symptoms of the mons pubis area. Her right axilla area where she had the firmness, opened and started to drain. She states she has been doing the sitz baths daily to help with the inguinal/mons pubis areas. Surgery 08/06/21 - Surgical preparation right axilla with excision recurrent hidradenitis (143 cm2). Size of wound right axilla - 11 x 13 x 3 cm. Wound care - Stop Silver alginate and start Justa to the wound and top with gauze daily. She is to place dry gauze in her bilateral groin to help absorb the drainage from her active hidradenitis. Wound culture obtained on 12/03/21 which was positive for Staphylococcus aureus and Corynebacterium striatum. She was started on Augmentin and a probiotic. Today she denies fever and nausea and vomiting. She does not have much appetite. Her mother is having her drink protein shakes. Progress of Wound: Right axilla ulcer is beefy pink with hypergranulation. Objective Data Objective Data Vital Signs: Vital Signs Temp Pulse Resp BP 99 F 111 H 20 H 131/80 H 12/10/21 14:36 12/10/21 14:36 12/10/21 14:36 12/10/21 14:36 Weight: 150 lb Body Mass Index (BMI) 26.5 Lab / Micro Data Micro: Microbiology 12/03/21 14:20 Tissue Ulcer - Axilla, Right Gram Stain - Final 12/03/21 14:20 Tissue Ulcer - Axilla, Right Wound Culture - Final Staphylococcus aureus Corynebacterium striatum 12/03/21 14:20 Tissue Ulcer - Axilla, Right Anaerobic Culture - Final No anaerobic bacteria isolated. Charges/Coding Procedures Integumentary 111xxx-113xx: 47242 Jacque subq tissue 20 sq cm/< Physical Exam Const alert and oriented x3 General Appearance: cooperative HEENT normocephalic Resp normal respiratory effort Cardio regular rate GI non-tender Palpation: soft Extremity normal capillary refill General Extremity: Negative for edema Skin Skin Narrative: Bilateral groin/mons pubis area continues to have a mild break out of hidradenitis, but is much improved with very little drainage. The angry redness has resolved. Wound Narrative: Her right axilla ulcer has hypergranulation. It is beefy pink and very sensitive to palpation. Neuro Sensorium / Orientation: awake and alert Psych Appearance: well kempt Debridement Note Debridement Note Wound debrided: Axilla ulcer Laterality: Right Type of Debridement: Excisional debridement Anesthesia Used: 5% Lidocaine Gel Depth: Down to and including healthy tissue and in the subcutaneous layer Percentage of wound debrided: 100 Instrument Used: 5mm curette Tissue Removed: Nonviable tissue and slough, hypergranulation tissue Severity: Fat Layer Exposed Amount of bleeding with debridement: Mild Bleeding Controlled with: Pressure, Compression and gauze and Silver Nitrate (silver nitrate used on the area of hypergranulation to see if this helps prevent it from returning.) Patient tolerated procedure: Patient tolerated procedure well Post-Debridement Measurements and Additional Note: Post-Debridement Measurements/Treatment - Nurse 1 - General Ulcer Assessment Start: 12/03/21 14:06 Freq: Status: Active Protocol: EDUAR.PARVIZ Activity Type Activity Date Activity User E-sign Co-sign Detail Recorded Client Recorded Date Recorded By Document 12/03/21 14:06 KR [id number] 12/03/21 14:08 KR Document 12/10/21 14:36 DL [id number] 12/10/21 14:40 DL 12/03/21 12/10/21 14:06 14:36 - Today's Visit Information Type of service Follow-up Visit Follow-up Visit (Physician/COFFEE BAR ATTENDANT (Physician/COFFEE BAR ATTENDANT ) ) Arrival Mode Ambulatory Ambulatory Transfer Assistance None Patient Identification Verified (Name & Yes Yes ) Patient Requires Transmission-Based No Precautions Height and Weight Body Mass Index (BMI) 26.5 26.5 BMI Classification Overweight Overweight Vital Signs Temperature (97.8 F-99.1 F) 97.6 F L 99 F Temperature Source Temporal Temporal Pulse Rate (60-100) 78 111 H Pulse Location Monitor Monitor Respiratory Rate (12-18) 20 H Respiratory rate source Observation Blood Pressure (90/60-120/80) 124/76 H 131/80 H Blood Pressure Mean (mm Hg) 92 97 Source Monitor Monitor Position Semi-Fowlers Blood Pressure Location Right Arm History Since Last Visit- (Skip if this is Patient's initial visit) Have you changed medications since your No No last visit? Any new allergies or adverse reactions No No Had a fall/change in ADL's that may No No increase risk of falls Signs or symptoms of abuse and/or No No neglect since last visit Have you been in the hospital since your No Yes last visit? Has dressing in place as prescribed Yes Yes Has compression in place as prescribed N/A N/A Has offloadiing in place as prescribed N/A N/A Experienced any changes in pain level or No No management Left Footwear Regular Shoe Right Footwear Regular Shoe Pain Scale: 0-10 Numeric Is Patient Pain Free? Yes Yes WC - Nurse 1 - General Ulcer Measurement Start: 12/03/21 14:06 Freq: Status: Active Protocol: Activity Type Activity Date Activity User E-sign Co-sign Detail Recorded Client Recorded Date Recorded By Document 12/03/21 14:06 KR [id number] 12/03/21 14:08 KR Document 12/10/21 14:36 DL [id number] 12/10/21 14:40 DL 12/03/21 12/10/21 14:06 14:36 Wound Center Nurse 1 #4 R AXILLA -Current Size (cm) - Length 1 2.1 -Current Size (cm) - Width 2.3 3.8 -Current Size (cm) - Depth 0.1 0.2 -Total Square Cm 2.3 7.98 -Photo Taken No -Exudate Amt Small Medium -Exudate Type Serosanguineous -Wound Margin Distinct, Distinct, Outline Outline Attached Attached -Granulation Amt Medium (34-66%) Medium (34-66%) -Granulation Quality Red Red -Necrosis Amt Small (1-33%) Medium (34-66%) -Necrotic Tissue Type Adherent Slough Adherent Slough -Structure Exposed N/A -Texture (Ade-wound Skin Appearance) Assessed, Scarring Scarring -Moisture (Ade-wound Skin Appearance) No Abnormality, No Abnormality Assessed -Color (Ade-wound Skin Appearance) No Abnormality, No Abnormality Assessed -Temperature (Ade-wound Skin No Abnormality No Abnormality Appearance) (Pt Warm) (Pt Warm) -Tenderness on Palpation (Ade-wound No Skin Appearance) -Ulcer Cleansing Rinsed/ Rinsed/ Irrigated with Irrigated with Saline Saline -Foul Odor after Cleansing No No -Anesthetic Used 5% Lidocaine 5% Lidocaine Gel Gel WC - Nurse 2 - General Ulcer CM Notes Start: 12/03/21 14:06 Freq: Status: Active Protocol: Activity Type Activity Date Activity User E-sign Co-sign Detail Recorded Client Recorded Date Recorded By Document 12/03/21 14:42 [id number] 12/03/21 14:45 JF Edit Result 12/03/21 14:42 JF (1) [id number] 12/04/21 16:53 PL Document 12/10/21 15:04 [id number] 12/10/21 15:09 JF (1) #3 R AXILLA MED - Debridement - Subq, 1st 20sq cm Yes => 12/03/21 12/10/21 14:42 15:04 Wound Center Nurse 2 #3 R AXILLA MED -Time 14:43 -Correct Patient No -Correct Side, Site, Position No -Correct Procedure No -Procedure Performed No -Tunneling No -Undermining/Tunneling No -Circular Undermining No -Wound/Ulcer Outcome Converted -Ulcer Cleansing Rinsed/ Irrigated with Saline -Foul Odor after Cleansing No -Bioengineered Tissue No -Bleeding Controlled with Pressure -Treatment Response Procedure Tolerated Well -Offloading No #4 R AXILLA -Time 14:44 15:05 -Correct Patient Yes Yes -Correct Side, Site, Position Yes Yes -Correct Procedure Yes Yes -Procedure Performed Yes Yes -Type of Procedure Debridement Debridement -Clinical Debridement Subcutaneous Subcutaneous -Tissue Removed Subcutaneous Subcutaneous -Post Debridement (cm) - Length 2.3 2.0 -Post Debridement (cm) - Width 3.0 4.2 -Post Debridement (cm) - Depth 0.4 0.4 -Total Square (Post) (cm) 6.90 8.40 -Area of Debridement (cm) - Length 2.3 2.0 -Area of Debridement (cm) - Width 3.0 4.2 -Total Square (Area) (cm) 6.90 8.40 -Tunneling No No -Undermining/Tunneling No No -Circular Undermining No No -Wound/Ulcer Outcome Not Healed Not Healed -Ulcer Cleansing Rinsed/ Rinsed/ Irrigated with Irrigated with Saline Saline -Foul Odor after Cleansing No No -Bioengineered Tissue No No -Bleeding Controlled with Pressure Pressure -Treatment Response Procedure Procedure Tolerated Well Tolerated Well -Offloading No No -Debridement - Subq, 1st 20sq cm Yes Yes Pain Scale: 0-10 Numeric Is Patient Pain Free? Yes Yes - Nurse 3 - General Ulcer D/C NN Start: 12/03/21 14:06 Freq: Status: Active Protocol: Activity Type Activity Date Activity User E-sign Co-sign Detail Recorded Client Recorded Date Recorded By Document 12/03/21 14:52 [id number] 12/03/21 14:52 12/03/21 14:52 Wound Care Nurse 3 #4 R AXILLA -Ulcer Cleansing Rinsed/ Irrigated with Saline -Foul Odor after Cleansing No -Negative Pressure Wound Therapy N/A -Primary Dressing Applied Promogran Justa Matter -Primary Dressing Covered/Secured with Dry Gauze, Secured with Tape -Promogran Justa Matter 1 Pain Scale: 0-10 Numeric Is Patient Pain Free? Yes - Visit Discharge Discharge Condition Stable Ambulatory Status Ambulatory Transportation Private Auto Medication Reconcilliation completed & Yes provided to patient/care provider Clinical Summary of Care Provided Yes Assessment/Plan Assessment/Plan (1) Skin ulcer of axilla with fat layer exposed: CODE(S): L98.492 - Non-pressure chronic ulcer of skin of other sites with fat layer exposed (2) Vulval hidradenitis suppurativa: CODE(S): L73.2 - Hidradenitis suppurativa (3) Hidradenitis: CODE(S): L73.2 - Hidradenitis suppurativa (4) Former smoker: CODE(S): Z87.891 - Personal history of nicotine dependence PLAN: Plan Continue to wash with soap and water, especially the ade wound area at the time of the dressing change. Wound care - Justa topped with gauze daily. In her groin area place dry gauze dressing to help absorb the drainage from her hidradenitis areas draining. She is having a hidradenitis flare in her bilateral groins with the right side being worse and in her mons pubis area, which has improved with the Sitz baths and keeping the drainage under control. Encouraged her to continue the Sitz baths with Epsom salt daily. Completed Flagyl. Wound culture obtained on 12/03/21 which was positive for Staphylococcus aureus and Corynebacterium striatum. These results with discussed with the patient and her mother today. She was started on Augmentin and a probiotic. Discussed taking the antibiotic with food and discussed potential side effects. Encouraged increase protein intake to help with healing. Operative cultures positive for Anaerobic cocci and Clostridium clostridioforme. Pathology was consistent with hidradenitis. Follow up two weeks.
== END 2021-12-23 23:59 | disposition home or self-care (01) ==
LOC: WC 14:30
PROVIDERS: PCP Internal Medicine; Visit Provider Nurse Practitioner Family
DX: L73.2 Hidradenitis suppurativa (principal); L98.492 Non-pressure chronic ulcer of skin of other sites with fat layer exposed; Z87.891 Personal history of nicotine dependence; M62.838 Other muscle spasm
CPT/HCPCS: 11042; 87070; 87075; 87077; 87186; 87205

== ENCOUNTER 2022-01-21 14:00 | Outpatient (RCR) | payer MEDICAID, SELFPAY ==
[2021-12-24 00:27] VITALS: BP 131/80; PULSE 111; RESP 20; TEMP 37.2; BMI 26.5
[2021-12-24 14:37] VITALS: BP 143/91; PULSE 125; TEMP 37.7; BMI 26.5
--- NOTE | 2021-12-24 15:31 | PN.PCM_ITS ---
History of Present Illness Date of Service: 12/24/21 Chief Complaint: Right axillary hidradenitis ulcer after excision History of Wound: 26 year old female presents for a recent flare of hidradenitis of her right axilla, and bilateral inguinal, mons pubis extending onto labia areas. She has a history of excision of her right axilla hidradenitis in 11/04, and excision of left axillary hidradenitis 12/04. She was last seen 2 years ago for a right axilla flare that was treated with antibiotics. She stopped using Augmentin and started on Clindamycin for 10 days. She saw an improvement in her symptoms of the mons pubis area. Her right axilla area where she had the firmness, opened and started to drain. She states she has been doing the sitz baths daily to help with the inguinal/mons pubis areas. Surgery 08/06/21 - Surgical preparation right axilla with excision recurrent hidradenitis (143 cm2). Size of wound right axilla - 11 x 13 x 3 cm. Wound care - Justa to the wound and top with gauze daily. She is to place dry gauze in her bilateral groin to help absorb the drainage from her active hidradenitis. Wound culture obtained on 12/03/21 which was positive for Staphylococcus aureus and Corynebacterium striatum. She was started on Augmentin and a probiotic. Today she denies fever and nausea and vomiting. She does not have much appetite. Her mother is having her drink protein shakes. Progress of Wound: Ulcer is improving Objective Data Objective Data Vital Signs: Vital Signs Temp Pulse Resp BP 99.8 F H 125 H 20 H 143/91 H 12/24/21 14:37 12/24/21 14:37 12/24/21 00:27 12/24/21 14:37 Weight: 150 lb Body Mass Index (BMI) 26.5 Charges/Coding Procedures Integumentary 111xxx-113xx: 14930 Jacque subq tissue 20 sq cm/< Physical Exam Const alert and no apparent distress General Appearance: cooperative HEENT normocephalic Resp normal respiratory effort Cardio regular rate Extremity normal capillary refill General Extremity: Negative for edema Skin Skin Narrative: Bilateral groin/mons pubis area continues to have a mild break out of hidradenitis, but they are stable. Wound Narrative: Her right axilla ulcer has hypergranulation. It is beefy pink and very sensitive to palpation. Neuro Sensorium / Orientation: awake and alert Psych Appearance: well kempt Debridement Note Debridement Note Wound debrided: Axilla ulcer Laterality: Right Type of Debridement: Excisional debridement Anesthesia Used: 5% Lidocaine Gel Depth: Down to and including healthy tissue and in the subcutaneous layer Percentage of wound debrided: 100 Instrument Used: 3mm curette Tissue Removed: Nonviable tissue and slough, hypergranulation tissue Severity: Fat Layer Exposed Amount of bleeding with debridement: Mild Bleeding Controlled with: Pressure, Compression and gauze and Silver Nitrate (silver nitrate used on the area of hypergranulation to see if this helps prevent it from returning.) Patient tolerated procedure: Patient tolerated procedure well Post-Debridement Measurements and Additional Note: Post-Debridement Measurements/Treatment WC - Nurse 1 - General Ulcer Assessment Start: 12/24/21 14:37 Freq: Status: Active Protocol: AGUSTIN Activity Type Activity Date Activity User E-sign Co-sign Detail Recorded Client Recorded Date Recorded By Document 12/24/21 14:37 LA [id number] 12/24/21 14:41 LA 12/24/21 14:37 WC - Today's Visit Information Type of service Follow-up Visit (Physician/SUBMARINE OPERATOR ) Arrival Mode Ambulatory Patient Identification Verified (Name & Yes ) Height and Weight Body Mass Index (BMI) 26.5 BMI Classification Overweight Vital Signs Temperature (97.8 F-99.1 F) 99.8 F H Temperature Source Temporal Pulse Rate (60-100) 125 H Pulse Location Monitor Blood Pressure (90/60-120/80) 143/91 H Blood Pressure Mean (mm Hg) 108 Source Monitor Position Sitting Blood Pressure Location Left Arm History Since Last Visit- (Skip if this is Patient's initial visit) Have you changed medications since your No last visit? Any new allergies or adverse reactions No Had a fall/change in ADL's that may No increase risk of falls Signs or symptoms of abuse and/or No neglect since last visit Have you been in the hospital since your No last visit? Has dressing in place as prescribed Yes Has compression in place as prescribed N/A Has offloadiing in place as prescribed N/A Experienced any changes in pain level or No management Left Footwear Regular Shoe Right Footwear Regular Shoe Pain Scale: 0-10 Numeric Is Patient Pain Free? Yes - Nurse 1 - General Ulcer Measurement Start: 12/24/21 14:37 Freq: Status: Active Protocol: Activity Type Activity Date Activity User E-sign Co-sign Detail Recorded Client Recorded Date Recorded By Document 12/24/21 14:37 LA [id number] 12/24/21 14:41 LA 12/24/21 14:37 Wound Center Nurse 1 #4 R AXILLA -Current Size (cm) - Length 0.8 -Current Size (cm) - Width 2.6 -Current Size (cm) - Depth 0.2 -Total Square Cm 2.08 -Exudate Amt Medium -Exudate Type Serosanguineous -Granulation Amt Large (67-100%) -Granulation Quality Hyper- granulation -Necrosis Amt None Present (0 %) -Texture (Ade-wound Skin Appearance) Assessed, Scarring -Moisture (Ade-wound Skin Appearance) Assessed, Maceration -Color (Ade-wound Skin Appearance) No Abnormality, Assessed -Temperature (Ade-wound Skin No Abnormality Appearance) (Pt Warm) -Tenderness on Palpation (Ade-wound No Skin Appearance) -Ulcer Cleansing Rinsed/ Irrigated with Saline -Foul Odor after Cleansing No -Anesthetic Used 5% Lidocaine Gel - Nurse 2 - General Ulcer CM Notes Start: 12/24/21 14:37 Freq: Status: Active Protocol: Activity Type Activity Date Activity User E-sign Co-sign Detail Recorded Client Recorded Date Recorded By Document 12/24/21 14:53 PRAVIN [id number] 12/24/21 14:54 PRAVIN 12/24/21 14:53 Wound Center Nurse 2 -Time 14:53 -Correct Patient Yes -Correct Side, Site, Position Yes -Correct Procedure Yes -Procedure Performed Yes -Type of Procedure Debridement -Clinical Debridement Subcutaneous -Tissue Removed Subcutaneous -Post Debridement (cm) - Length 1.8 -Post Debridement (cm) - Width 2.2 -Post Debridement (cm) - Depth 0.2 -Total Square (Post) (cm) 3.96 -Area of Debridement (cm) - Length 1.8 -Area of Debridement (cm) - Width 2.2 -Total Square (Area) (cm) 3.96 -Tunneling No -Undermining/Tunneling No -Circular Undermining No -Wound/Ulcer Outcome Not Healed -Ulcer Cleansing Rinsed/ Irrigated with Saline -Foul Odor after Cleansing No -Bioengineered Tissue No -Bleeding Controlled with Pressure,Silver Nitrate -Treatment Response Procedure Tolerated Well -Offloading No -Debridement - Subq, 1st 20sq cm Yes Pain Scale: 0-10 Numeric Is Patient Pain Free? Yes WC - Nurse 3 - General Ulcer D/C NN Start: 12/24/21 14:37 Freq: Status: Active Protocol: Activity Type Activity Date Activity User E-sign Co-sign Detail Recorded Client Recorded Date Recorded By Document 12/24/21 15:03 DL [id number] 12/24/21 15:04 DL 12/24/21 15:03 Wound Care Nurse 3 #4 R AXILLA -Ulcer Cleansing Rinsed/ Irrigated with Saline -Foul Odor after Cleansing No -Primary Dressing Applied Promogran Justa Matter -Primary Dressing Covered/Secured with Dry Gauze, Secured with Tape -Promogran Justa Matter 1 Treatment Response Procedure Tolerated Well Pain Scale: 0-10 Numeric Is Patient Pain Free? Yes WC - Visit Discharge Discharge Condition Stable Ambulatory Status Ambulatory Transportation Private Auto Notes: Dressing applied per Qamar Perry LPN today in clinic . 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 Wound care - Justa topped with gauze daily. In her groin area place dry gauze dressing to help absorb the drainage from her hidradenitis areas draining. Her hidradenitis flare in her bilateral groin are stable with the Sitz baths and keeping the drainage under control. Encouraged her to continue the Sitz baths with Epsom salt daily. Completed Flagyl. Wound culture obtained on 12/03/21 which was positive for Staphylococcus aureus and Corynebacterium striatum. She was treated with Augmentin and a probiotic. Encouraged increase protein intake to help with healing. Operative cultures positive for Anaerobic cocci and Clostridium clostridioforme. Pathology was consistent with hidradenitis. Follow up two weeks.
[2022-01-07 14:06] VITALS: BP 118/80; PULSE 111; TEMP 35.7; BMI 26.5
--- NOTE | 2022-01-07 15:01 | PCM.WC.PN ---
History of Present Illness Date of Service: 01/07/22 Chief Complaint: Right axillary hidradenitis ulcer after excision History of Wound: 26 year old female presents for a recent flare of hidradenitis of her right axilla, and bilateral inguinal, mons pubis extending onto labia areas. She has a history of excision of her right axilla hidradenitis in 11/04, and excision of left axillary hidradenitis 12/04. She was last seen 2 years ago for a right axilla flare that was treated with antibiotics. She stopped using Augmentin and started on Clindamycin for 10 days. She saw an improvement in her symptoms of the mons pubis area. Her right axilla area where she had the firmness, opened and started to drain. She states she has been doing the sitz baths daily to help with the inguinal/mons pubis areas. Surgery 08/06/21 - Surgical preparation right axilla with excision recurrent hidradenitis (143 cm2). Size of wound right axilla - 11 x 13 x 3 cm. Wound care - Justa to the wound and top with gauze daily. She is to place dry gauze in her bilateral groin to help absorb the drainage from her active hidradenitis. Wound culture obtained on 12/03/21 which was positive for Staphylococcus aureus and Corynebacterium striatum. She was started on Augmentin and a probiotic. Today she denies fever and nausea and vomiting. She does not have much appetite. Her mother is having her drink protein shakes. Progress of Wound: Ulcer has improved, it is smaller in size with much less hypergranulation tissue. Objective Data Objective Data Vital Signs: Vital Signs Temp Pulse Resp BP 96.3 F L 111 H 20 H 118/80 01/07/22 14:06 01/07/22 14:06 12/24/21 00:27 01/07/22 14:06 Weight: 150 lb Body Mass Index (BMI) 26.5 Charges/Coding Procedures Integumentary 111xxx-113xx: 06452 Jacque subq tissue 20 sq cm/< Physical Exam Const alert and no apparent distress General Appearance: cooperative HEENT normocephalic Resp normal respiratory effort Cardio regular rate Extremity normal capillary refill Extremity Narrative: She has good right shoulder range of motion. General Extremity: Negative for edema Skin Skin Narrative: Bilateral groin/mons pubis area continues to have a mild break out of hidradenitis, but they are stable. Wound Narrative: Her right axilla ulcer is smaller in size. There is decreased amount of hypergranulation tissue present. Neuro Sensorium / Orientation: awake and alert Psych Appearance: well kempt Debridement Note Debridement Note Wound debrided: Axilla ulcer Laterality: Right Type of Debridement: Excisional debridement Anesthesia Used: 5% Lidocaine Gel Depth: Down to and including healthy tissue and in the subcutaneous layer Percentage of wound debrided: 100 Instrument Used: 3mm curette Tissue Removed: Nonviable tissue and slough, hypergranulation tissue Severity: Fat Layer Exposed Amount of bleeding with debridement: Mild Bleeding Controlled with: Pressure, Compression and gauze and Silver Nitrate (silver nitrate used on the area of hypergranulation to help with the bleeding and decrease the amount of hypergranulation tissue) Patient tolerated procedure: Patient tolerated procedure well Post-Debridement Measurements and Additional Note: Post-Debridement Measurements/Treatment - Nurse 1 - General Ulcer Assessment Start: 12/24/21 14:37 Freq: Status: Active Protocol: AGUSTIN Activity Type Activity Date Activity User E-sign Co-sign Detail Recorded Client Recorded Date Recorded By Document 12/24/21 14:37 KR [id number] 12/24/21 14:41 KR Document 01/07/22 14:06 AK [id number] 01/07/22 14:08 AK 12/24/21 01/07/22 14:37 14:06 - Today's Visit Information Type of service Follow-up Visit Follow-up Visit (Physician/OPTICAL LABORATORY MECHANIC (Physician/OPTICAL LABORATORY MECHANIC ) ) Arrival Mode Ambulatory Ambulatory Patient Identification Verified (Name & Yes Yes ) Patient Requires Transmission-Based No Precautions Height and Weight Body Mass Index (BMI) 26.5 26.5 BMI Classification Overweight Overweight Vital Signs Temperature (97.8 F-99.1 F) 99.8 F H 96.3 F L Temperature Source Temporal Temporal Pulse Rate (60-100) 125 H 111 H Pulse Location Monitor Monitor Blood Pressure (90/60-120/80) 143/91 H 118/80 Blood Pressure Mean (mm Hg) 108 92 Source Monitor Monitor Position Sitting Blood Pressure Location Left Arm History Since Last Visit- (Skip if this is Patient's initial visit) Have you changed medications since your No No last visit? Any new allergies or adverse reactions No No Had a fall/change in ADL's that may No No increase risk of falls Signs or symptoms of abuse and/or No No neglect since last visit Have you been in the hospital since your No No last visit? Has dressing in place as prescribed Yes Yes Has compression in place as prescribed N/A N/A Has offloadiing in place as prescribed N/A N/A Experienced any changes in pain level or No No management Left Footwear Regular Shoe Regular Shoe Right Footwear Regular Shoe Regular Shoe Pain Scale: 0-10 Numeric Is Patient Pain Free? Yes Yes WC - Nurse 1 - General Ulcer Measurement Start: 12/24/21 14:37 Freq: Status: Active Protocol: Activity Type Activity Date Activity User E-sign Co-sign Detail Recorded Client Recorded Date Recorded By Document 12/24/21 14:37 KR [id number] 12/24/21 14:41 KR Document 01/07/22 14:06 AK [id number] 01/07/22 14:08 AK 12/24/21 01/07/22 14:37 14:06 Wound Center Nurse 1 #4 R AXILLA -Combined with other wound No -Current Size (cm) - Length 0.8 0.9 -Current Size (cm) - Width 2.6 1.4 -Current Size (cm) - Depth 0.2 0.1 -Total Square Cm 2.08 1.26 -Photo Taken No -Tunneling No -Undermining/Tunneling No -Circular Undermining No -Change in Wound Grade/Stage No -Exudate Amt Medium Medium -Exudate Type Serosanguineous Serosanguineous -Wound Margin Distinct, Outline Attached -Granulation Amt Large (67-100%) Small (1-33%) -Granulation Quality Hyper- [place],Red granulation -Slough/Fibrin Yes -Necrosis Amt None Present (0 Small (1-33%) %) -Necrotic Tissue Type Adherent Slough -Structure Exposed N/A -Texture (Ade-wound Skin Appearance) Assessed, Assessed Scarring -Moisture (Ade-wound Skin Appearance) Assessed, No Abnormality, Maceration Assessed -Color (Ade-wound Skin Appearance) No Abnormality, No Abnormality, Assessed Assessed -Temperature (Ade-wound Skin No Abnormality No Abnormality Appearance) (Pt Warm) (Pt Warm) -Tenderness on Palpation (Ade-wound No No Skin Appearance) -Ulcer Cleansing Rinsed/ Rinsed/ Irrigated with Irrigated with Saline Saline -Foul Odor after Cleansing No No -Anesthetic Used 5% Lidocaine 5% Lidocaine Gel Gel WC - Nurse 2 - General Ulcer CM Notes Start: 12/24/21 14:37 Freq: Status: Active Protocol: Activity Type Activity Date Activity User E-sign Co-sign Detail Recorded Client Recorded Date Recorded By Document 12/24/21 14:53 [id number] 12/24/21 14:54 Document 01/07/22 14:23 [id number] 01/07/22 14:28 12/24/21 01/07/22 14:53 14:23 Wound Center Nurse 2 #4 R AXILLA -Time 14:53 14:24 -Correct Patient Yes Yes -Correct Side, Site, Position Yes Yes -Correct Procedure Yes Yes -Procedure Performed Yes Yes -Type of Procedure Debridement Debridement -Clinical Debridement Subcutaneous Subcutaneous -Tissue Removed Subcutaneous Subcutaneous -Post Debridement (cm) - Length 1.8 0.8 -Post Debridement (cm) - Width 2.2 1.7 -Post Debridement (cm) - Depth 0.2 0.2 -Total Square (Post) (cm) 3.96 1.36 -Area of Debridement (cm) - Length 1.8 0.8 -Area of Debridement (cm) - Width 2.2 1.8 -Total Square (Area) (cm) 3.96 1.44 -Tunneling No No -Undermining/Tunneling No No -Circular Undermining No No -Wound/Ulcer Outcome Not Healed Not Healed -Ulcer Cleansing Rinsed/ Rinsed/ Irrigated with Irrigated with Saline Saline -Foul Odor after Cleansing No No -Bioengineered Tissue No No -Bleeding Controlled with Pressure,Silver Pressure,Silver Nitrate Nitrate -Treatment Response Procedure Procedure Tolerated Well Tolerated Well -Offloading No No -Debridement - Subq, 1st 20sq cm Yes Yes Pain Scale: 0-10 Numeric Is Patient Pain Free? Yes Yes EDUAR - Nurse 3 - General Ulcer D/C NN Start: 12/24/21 14:37 Freq: Status: Active Protocol: Activity Type Activity Date Activity User E-sign Co-sign Detail Recorded Client Recorded Date Recorded By Document 12/24/21 15:03 DL [id number] 12/24/21 15:04 DL 12/24/21 15:03 Wound Care Nurse 3 #4 R AXILLA -Ulcer Cleansing Rinsed/ Irrigated with Saline -Foul Odor after Cleansing No -Primary Dressing Applied Promogran Justa Matter -Primary Dressing Covered/Secured with Dry Gauze, Secured with Tape -Promogran Justa Matter 1 Treatment Response Procedure Tolerated Well Pain Scale: 0-10 Numeric Is Patient Pain Free? Yes WC - Visit Discharge Discharge Condition Stable Ambulatory Status Ambulatory Transportation Private Auto Notes: Dressing applied per Qamar Perry LPN today in clinic . 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 Wound care - Justa topped with gauze daily to right axilla ulcer. In her groin area place dry gauze dressing to help absorb the drainage from her hidradenitis areas draining. Her hidradenitis flare in her bilateral groin are stable with the Sitz baths and keeping the drainage under control. Encouraged her to continue the Sitz baths with Epsom salt daily. Completed Flagyl. Wound culture obtained on 12/03/21 which was positive for Staphylococcus aureus and Corynebacterium striatum. She was treated with Augmentin and a probiotic. Encouraged increase protein intake to help with healing. Operative cultures positive for Anaerobic cocci and Clostridium clostridioforme. Pathology was consistent with hidradenitis. Follow up two weeks.
[2022-01-21 14:10] VITALS: BP 118/72; PULSE 94; RESP 18; TEMP 36.2; BMI 26.5
--- NOTE | 2022-01-21 14:19 | PCM.WC.PN ---
History of Present Illness Date of Service: 01/21/22 Chief Complaint: Right axillary hidradenitis ulcer after excision History of Wound: 26 year old female presents for a recent flare of hidradenitis of her right axilla, and bilateral inguinal, mons pubis extending onto labia areas. She has a history of excision of her right axilla hidradenitis in 11/04, and excision of left axillary hidradenitis 12/04. She was last seen 2 years ago for a right axilla flare that was treated with antibiotics. She stopped using Augmentin and started on Clindamycin for 10 days. She saw an improvement in her symptoms of the mons pubis area. Her right axilla area where she had the firmness, opened and started to drain. She states she has been doing the sitz baths daily to help with the inguinal/mons pubis areas. Surgery 08/06/21 - Surgical preparation right axilla with excision recurrent hidradenitis (143 cm2). Size of wound right axilla - 11 x 13 x 3 cm. Wound care - Justa to the wound and top with gauze daily. She is to place dry gauze in her bilateral groin to help absorb the drainage from her active hidradenitis. Wound culture obtained on 12/03/21 which was positive for Staphylococcus aureus and Corynebacterium striatum. She was started on Augmentin and a probiotic. Today she denies fever and nausea and vomiting. She does not have much appetite. Her mother is having her drink protein shakes. Progress of Wound: Ulcer has improved, it is smaller in size with much less hypergranulation tissue. Objective Data Objective Data Vital Signs: Vital Signs Temp Pulse Resp BP 97.2 F L 94 18 118/72 01/21/22 14:10 01/21/22 14:10 01/21/22 14:10 01/21/22 14:10 Weight: 150 lb Body Mass Index (BMI) 26.5 Charges/Coding Procedures Integumentary 111xxx-113xx: 78278 Jacque subq tissue 20 sq cm/< Physical Exam Const alert and no apparent distress General Appearance: cooperative HEENT normocephalic Resp normal respiratory effort Cardio regular rate Extremity normal capillary refill Extremity Narrative: She has good right shoulder range of motion. General Extremity: Negative for edema Skin Skin Narrative: Bilateral groin/mons pubis area continues to have a mild break out of hidradenitis, but they are stable. Wound Narrative: Her right axilla ulcer is smaller in size. There is decreased amount of hypergranulation tissue present. Neuro Sensorium / Orientation: awake and alert Psych Appearance: well kempt Debridement Note Debridement Note Wound debrided: Axilla ulcer Laterality: Right Type of Debridement: Excisional debridement Anesthesia Used: 5% Lidocaine Gel Depth: Down to and including healthy tissue and in the subcutaneous layer Percentage of wound debrided: 100 Instrument Used: 3mm curette Tissue Removed: Nonviable tissue and slough, hypergranulation tissue Severity: Fat Layer Exposed Amount of bleeding with debridement: Mild Bleeding Controlled with: Pressure, Compression and gauze and Silver Nitrate (silver nitrate used on the area of hypergranulation to help with the bleeding and decrease the amount of hypergranulation tissue) Patient tolerated procedure: Patient tolerated procedure well Debridement Free Text: Use silver nitrate to help control the bleeding and to help decrease the amount of hyper granulation regrowth. Post-Debridement Measurements and Additional Note: Post-Debridement Measurements/Treatment - Nurse 1 - General Ulcer Assessment Start: 12/24/21 14:37 Freq: Status: Active Protocol: AGUSTIN Activity Type Activity Date Activity User E-sign Co-sign Detail Recorded Client Recorded Date Recorded By Document 12/24/21 14:37 KR [id number] 12/24/21 14:41 KR Document 01/07/22 14:06 AK [id number] 01/07/22 14:08 AK Document 01/21/22 14:10 PL [id number] 01/21/22 14:15 PL 12/24/21 01/07/22 01/21/22 14:37 14:06 14:10 - Today's Visit Information Type of service Follow-up Visit Follow-up Visit Follow-up Visit (Physician/DENTAL ASSISTANT MEDICAL ASSISTANT (Physician/DENTAL ASSISTANT MEDICAL ASSISTANT (Physician/DENTAL ASSISTANT MEDICAL ASSISTANT ) ) ) Arrival Mode Ambulatory Ambulatory Ambulatory Transfer Assistance None Patient Identification Verified (Name & Yes Yes Yes ) Patient Requires Transmission-Based No No Precautions Safety Precautions NA Height and Weight Body Mass Index (BMI) 26.5 26.5 26.5 BMI Classification Overweight Overweight Overweight Vital Signs Temperature (97.8 F-99.1 F) 99.8 F H 96.3 F L 97.2 F L Temperature Source Temporal Temporal Temporal Pulse Rate (60-100) 125 H 111 H 94 Pulse Location Monitor Monitor Respiratory Rate (12-18) 18 Blood Pressure (90/60-120/80) 143/91 H 118/80 118/72 Blood Pressure Mean (mm Hg) 108 92 87 Source Monitor Monitor Position Sitting Blood Pressure Location Left Arm History Since Last Visit- (Skip if this is Patient's initial visit) Have you changed medications since your No No No last visit? Any new allergies or adverse reactions No No No Had a fall/change in ADL's that may No No No increase risk of falls Signs or symptoms of abuse and/or No No No neglect since last visit Have you been in the hospital since your No No No last visit? Has dressing in place as prescribed Yes Yes Yes Has compression in place as prescribed N/A N/A N/A Has offloadiing in place as prescribed N/A N/A N/A Experienced any changes in pain level or No No No management Left Footwear Regular Shoe Regular Shoe Right Footwear Regular Shoe Regular Shoe Pain Scale: 0-10 Numeric Is Patient Pain Free? Yes Yes Yes WC - Nurse 1 - General Ulcer Measurement Start: 12/24/21 14:37 Freq: Status: Active Protocol: Activity Type Activity Date Activity User E-sign Co-sign Detail Recorded Client Recorded Date Recorded By Document 12/24/21 14:37 KR [id number] 12/24/21 14:41 KR Document 01/07/22 14:06 AK [id number] 01/07/22 14:08 AK Document 01/21/22 14:10 [address] [id number] 01/21/22 14:15 PL 12/24/21 01/07/22 01/21/22 14:37 14:06 14:10 Wound Center Nurse 1 #4 R AXILLA -Combined with other wound No No -Current Size (cm) - Length 0.8 0.9 0.5 -Current Size (cm) - Width 2.6 1.4 1.0 -Current Size (cm) - Depth 0.2 0.1 0.1 -Total Square Cm 2.08 1.26 0.50 -Photo Taken No -Epithelialization Large 67-100% -Tunneling No No -Undermining/Tunneling No No -Circular Undermining No No -Change in Wound Grade/Stage No -Exudate Amt Medium Medium Medium -Exudate Type Serosanguineous Serosanguineous Serosanguineous -Wound Margin Distinct, Outline Attached -Granulation Amt Large (67-100%) Small (1-33%) Large (67-100%) -Granulation Quality Hyper- [place] granulation -Slough/Fibrin Yes Yes -Necrosis Amt None Present (0 Small (1-33%) Small (1-33%) %) -Necrotic Tissue Type Adherent Slough Adherent Slough -Structure Exposed N/A -Texture (Ade-wound Skin Appearance) Assessed, Assessed Scarring -Moisture (Ade-wound Skin Appearance) Assessed, No Abnormality, Maceration Assessed -Color (Ade-wound Skin Appearance) No Abnormality, No Abnormality, Assessed Assessed -Temperature (Ade-wound Skin No Abnormality No Abnormality Appearance) (Pt Warm) (Pt Warm) -Tenderness on Palpation (Ade-wound No No Skin Appearance) -Ulcer Cleansing Rinsed/ Rinsed/ Irrigated with Irrigated with Saline Saline -Foul Odor after Cleansing No No -Anesthetic Used 5% Lidocaine 5% Lidocaine Gel Gel WC - Nurse 2 - General Ulcer CM Notes Start: 12/24/21 14:37 Freq: Status: Active Protocol: Activity Type Activity Date Activity User E-sign Co-sign Detail Recorded Client Recorded Date Recorded By Document 12/24/21 14:53 [id number] 12/24/21 14:54 Document 01/07/22 14:23 [id number] 01/07/22 14:28 12/24/21 01/07/22 14:53 14:23 Wound Center Nurse 2 #4 R AXILLA -Time 14:53 14:24 -Correct Patient Yes Yes -Correct Side, Site, Position Yes Yes -Correct Procedure Yes Yes -Procedure Performed Yes Yes -Type of Procedure Debridement Debridement -Clinical Debridement Subcutaneous Subcutaneous -Tissue Removed Subcutaneous Subcutaneous -Post Debridement (cm) - Length 1.8 0.8 -Post Debridement (cm) - Width 2.2 1.7 -Post Debridement (cm) - Depth 0.2 0.2 -Total Square (Post) (cm) 3.96 1.36 -Area of Debridement (cm) - Length 1.8 0.8 -Area of Debridement (cm) - Width 2.2 1.8 -Total Square (Area) (cm) 3.96 1.44 -Tunneling No No -Undermining/Tunneling No No -Circular Undermining No No -Wound/Ulcer Outcome Not Healed Not Healed -Ulcer Cleansing Rinsed/ Rinsed/ Irrigated with Irrigated with Saline Saline -Foul Odor after Cleansing No No -Bioengineered Tissue No No -Bleeding Controlled with Pressure,Silver Pressure,Silver Nitrate Nitrate -Treatment Response Procedure Procedure Tolerated Well Tolerated Well -Offloading No No -Debridement - Subq, 1st 20sq cm Yes Yes Pain Scale: 0-10 Numeric Is Patient Pain Free? Yes Yes - Nurse 3 - General Ulcer D/C NN Start: 12/24/21 14:37 Freq: Status: Active Protocol: Activity Type Activity Date Activity User E-sign Co-sign Detail Recorded Client Recorded Date Recorded By Document 12/24/21 15:03 DL [id number] 12/24/21 15:04 DL Document 01/07/22 15:04 AK [id number] 01/07/22 15:04 AK 12/24/21 01/07/22 15:03 15:04 Wound Care Nurse 3 #4 R AXILLA -Ulcer Cleansing Rinsed/ Rinsed/ Irrigated with Irrigated with Saline Saline -Foul Odor after Cleansing No No -Negative Pressure Wound Therapy N/A -Primary Dressing Applied Promogran Aquacel AG 2x2 Justa Matter -Primary Dressing Covered/Secured with Dry Gauze, Dry Gauze, Secured with Secured with Tape Tape -Aquacel AG 2x2 2 -Promogran Justa Matter 1 Treatment Response Procedure Tolerated Well Pain Scale: 0-10 Numeric Is Patient Pain Free? Yes Yes - Visit Discharge Discharge Condition Stable Stable Ambulatory Status Ambulatory Ambulatory Transportation Private Auto Private Auto Accompanied by mom Medication Reconcilliation completed & Yes provided to patient/care provider Clinical Summary of Care Provided Yes Notes: Dressing applied per Qamar Perry LPN today in clinic . 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 Wound care - Slightly moistened Justa topped with gauze daily to right axilla ulcer. In her groin area place dry gauze dressing to help absorb the drainage from her hidradenitis areas draining. Her hidradenitis flare in her bilateral groin are stable with the Sitz baths and keeping the drainage under control. Encouraged her to continue the Sitz baths with Epsom salt daily. Wound culture obtained on 12/03/21 which was positive for Staphylococcus aureus and Corynebacterium striatum. She was treated with Augmentin and a probiotic. Encouraged increase protein intake to help with healing. Operative cultures positive for Anaerobic cocci and Clostridium clostridioforme. Pathology was consistent with hidradenitis. Follow up two weeks.
== END 2022-01-23 23:59 | disposition home or self-care (01) ==
LOC: WC 14:00
PROVIDERS: PCP Internal Medicine; Visit Provider Nurse Practitioner Family
DX: L73.2 Hidradenitis suppurativa (principal); L98.492 Non-pressure chronic ulcer of skin of other sites with fat layer exposed; Z87.891 Personal history of nicotine dependence
CPT/HCPCS: 11042

== ENCOUNTER 2022-02-04 14:30 | Outpatient (RCR) | payer MEDICAID, SELFPAY ==
[2022-01-24 00:29] VITALS: BP 118/72; PULSE 94; RESP 18; TEMP 36.2; BMI 26.5
[2022-02-04 14:37] VITALS: BP 122/78; PULSE 84; TEMP 36.1; BMI 26.5
--- NOTE | 2022-02-04 16:44 | PN.PCM_ITS ---
History of Present Illness Date of Service: 02/04/22 Chief Complaint: Right axillary hidradenitis ulcer after excision History of Wound: 26 year old female presents for a recent flare of hidradenitis of her right axilla, and bilateral inguinal, mons pubis extending onto labia areas. She has a history of excision of her right axilla hidradenitis in 11/04, and excision of left axillary hidradenitis 12/04. She was last seen 2 years ago for a right axilla flare that was treated with antibiotics. She stopped using Augmentin and started on Clindamycin for 10 days. She saw an improvement in her symptoms of the mons pubis area. Her right axilla area where she had the firmness, opened and started to drain. She states she has been doing the sitz baths daily to help with the inguinal/mons pubis areas. Surgery 08/06/21 - Surgical preparation right axilla with excision recurrent hidradenitis (143 cm2). Size of wound right axilla - 11 x 13 x 3 cm. Wound care - Justa to the wound and top with gauze daily. She is to place dry gauze in her bilateral groin to help absorb the drainage from her active hidradenitis. Wound culture obtained on 12/03/21 which was positive for Staphylococcus aureus and Corynebacterium striatum. She was started on Augmentin and a probiotic. Today she denies fever and nausea and vomiting. She does not have much appetite. Her mother is having her drink protein shakes. Progress of Wound: Right axilla ulcer is healed today! She continues to have good range of motion of her right arm/shoulder. Objective Data Objective Data Vital Signs: Vital Signs Temp Pulse Resp BP 97.0 F L 84 18 122/78 H 02/04/22 14:37 02/04/22 14:37 01/24/22 00:29 02/04/22 14:37 Weight: 150 lb Body Mass Index (BMI) 26.5 Charges/Coding Visit Charges Office Visits / Consults: [id number] OV L3 Est Physical Exam Const alert and no apparent distress General Appearance: cooperative HEENT normocephalic Eyes PERRL Lymph Lymphatic: no lymphadenopathy noted Resp normal respiratory effort Effort and Inspection: able to speak in complete sentences Cardio regular rate and regular rhythm GI non-tender Palpation: soft Extremity normal capillary refill Extremity Narrative: She has good right shoulder range of motion. General Extremity: Negative for edema Skin Skin Narrative: Bilateral groin/mons pubis area continues to have a mild break out of hidradenitis, but they are stable. Wound Narrative: Her right axilla ulcer is healed today! Neuro Sensorium / Orientation: awake and alert Psych affect normal Appearance: well kempt Debridement Note Debridement Note Patient tolerated procedure: Patient tolerated procedure well Post-Debridement Measurements and Additional Note: Post-Debridement Measurements/Treatment - Nurse 1 - General Ulcer Assessment Start: 02/04/22 14:36 Freq: Status: Active Protocol: AGUSTIN Activity Type Activity Date Activity User E-sign Co-sign Detail Recorded Client Recorded Date Recorded By Document 02/04/22 14:37 LA [id number] 02/04/22 14:38 LA 02/04/22 14:37 WC - Today's Visit Information Type of service Follow-up Visit (Physician/CHANGE ATTENDANT ) Arrival Mode Ambulatory Patient Identification Verified (Name & Yes ) Height and Weight Body Mass Index (BMI) 26.5 BMI Classification Overweight Vital Signs Temperature (97.8 F-99.1 F) 97.0 F L Temperature Source Temporal Pulse Rate (60-100) 84 Pulse Location Monitor Blood Pressure (90/60-120/80) 122/78 H Blood Pressure Mean (mm Hg) 92 Source Monitor Position Sitting Blood Pressure Location Right Arm History Since Last Visit- (Skip if this is Patient's initial visit) Have you changed medications since your No last visit? Any new allergies or adverse reactions No Had a fall/change in ADL's that may No increase risk of falls Signs or symptoms of abuse and/or No neglect since last visit Have you been in the hospital since your No last visit? Has dressing in place as prescribed Yes Has compression in place as prescribed N/A Has offloadiing in place as prescribed N/A Experienced any changes in pain level or No management Left Footwear Regular Shoe Right Footwear Regular Shoe Pain Scale: 0-10 Numeric Is Patient Pain Free? Yes - Nurse 1 - General Ulcer Measurement Start: 02/04/22 14:36 Freq: Status: Active Protocol: Activity Type Activity Date Activity User E-sign Co-sign Detail Recorded Client Recorded Date Recorded By Document 02/04/22 14:37 LA [id number] 02/04/22 14:38 KR 02/04/22 14:37 Wound Center Nurse 1 #4 R AXILLA -Current Size (cm) - Length 0.1 -Current Size (cm) - Width 0.1 -Current Size (cm) - Depth 0.1 -Total Square Cm 0.01 -Exudate Amt None Present -Wound Margin Distinct, Outline Attached -Granulation Amt None Present (0 %) -Necrosis Amt None Present (0 %) -Texture (Ade-wound Skin Appearance) Assessed, Scarring -Moisture (Ade-wound Skin Appearance) No Abnormality, Assessed -Color (Ade-wound Skin Appearance) No Abnormality, Assessed -Temperature (Ade-wound Skin No Abnormality Appearance) (Pt Warm) -Tenderness on Palpation (Ade-wound No Skin Appearance) -Ulcer Cleansing Rinsed/ Irrigated with Saline -Foul Odor after Cleansing No -Anesthetic Used 5% Lidocaine Gel - Nurse 2 - General Ulcer CM Notes Start: 02/04/22 14:36 Freq: Status: Active Protocol: Activity Type Activity Date Activity User E-sign Co-sign Detail Recorded Client Recorded Date Recorded By Document 02/04/22 14:48 [id number] 02/04/22 14:49 02/04/22 14:48 Wound Center Nurse 2 -Correct Patient No -Correct Side, Site, Position No -Correct Procedure No -Procedure Performed No -Post Debridement (cm) - Length 0 -Post Debridement (cm) - Width 0 -Post Debridement (cm) - Depth 0 -Total Square (Post) (cm) 0 -Area of Debridement (cm) - Length 0 -Area of Debridement (cm) - Width 0 -Total Square (Area) (cm) 0 -Wound/Ulcer Outcome Healed- Epithelialized Pain Scale: 0-10 Numeric Is Patient Pain Free? Yes - Nurse 3 - General Ulcer D/C NN Start: 02/04/22 14:36 Freq: Status: Active Protocol: Activity Type Activity Date Activity User E-sign Co-sign Detail Recorded Client Recorded Date Recorded By Document 02/04/22 14:49 [id number] 02/04/22 14:49 02/04/22 14:49 Is Patient Pain Free? 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 She is to massage the scarring 1-2 times daily with lotion to help soften scarring. Stressed importance of continuing good range of motion of her right shoulder to help prevent scar contracture. She verbalized understanding to both the massaging and ROM. Her hidradenitis flare in her bilateral groin are stable with the Sitz baths and keeping the drainage under control. Encouraged her to continue the Sitz baths with Epsom salt ideally daily. Wound culture obtained on 12/03/21 which was positive for Staphylococcus aureus and Corynebacterium striatum. She was treated with Augmentin and a probiotic. Operative cultures positive for Anaerobic cocci and Clostridium clostridioforme. Pathology was consistent with hidradenitis. Refer her to [facility] so she can discuss possibly being placed on a biologic for her hidradenitis, to help get better control of this. Follow up as needed.
== END 2022-02-05 07:49 | disposition home or self-care (01) ==
LOC: WC 14:30
PROVIDERS: PCP Internal Medicine; Visit Provider Nurse Practitioner Family
DX: L73.2 Hidradenitis suppurativa (principal); Z87.891 Personal history of nicotine dependence
CPT/HCPCS: 99212; G0463

== ENCOUNTER → 2023-04-29 | Outpatient (CLI) | payer MEDICAID, SELFPAY ==
[2023-05-01 17:07] LABS: QNTFERON TB Mitogen Value > 10.00 IU/mL (.); QNTFERON TB Nil Value 0 IU/mL (.); QNTFERON TB1+ Ag Value 0.03 IU/mL (.); QNTFERON TB2+ Ag Value 0.04 IU/mL (.); QNTIFERON TB Positive Criteria Negative (Negative)
== END | disposition home or self-care (01) ==
PROVIDERS: PCP Internal Medicine
DX: L73.2 Hidradenitis suppurativa (principal); Z79.899 Other long term (current) drug therapy
CPT/HCPCS: 36415; 86480

== ENCOUNTER → 2023-11-06 | Outpatient (CLI) | payer MEDICAID, SELFPAY ==
[2023-11-06 11:21] LABS: Absolute Lymphocyte Count 3.48 X10^3/uL (0.83-4.51); Absolute Neutrophil Count 4.1 X10^3/uL (2.0-7.7); Basophil# 0.02 X10^3/uL; Basophil% 0.2 % (0-1); Eosinophil# 0.13 X10^3/uL; Eosinophils% 1.5 % (0-5); Hematocrit 38.5 % (37-47); Lymphocyte # 3.48 X10^3/ul (0.83-4.51); Lymphocyte % 39.2 % (19-41); Mean Corp Hgb Conc 31.2 g/dL (32-36); Mean Corpuscular Hgb 26.8 pg (27.0-32.0); Mean Corpuscular Volume 86.1 fL (81-99); Mean Platelet Vol. 11.2 fl (6.2-12.0); Monocyte# 1.09 X10^3/uL; Monocyte% 12.3 % (0-10); NRBC Flagged by Analyzer 0 % (0-5); Neutrophil # 4.14 X10^3/uL (2.7-7.7); Neutrophil % 46.7 % (47-70); Platelet Count 350 K/mm3 (150-450); RBC Distribution Width SD 43.8 fl (35.1-43.9); Red Blood Count 4.47 M/mm3 (4.2-5.4); White Blood Count 8.9 K/mm3 (4.4-11.0)
[2023-11-06 16:44] LABS: ALB/GLOB Ratio 0.7 RATIO (0.9-2.4); AST(SGOT) 21 U/L (15-37); Alanine Aminotransfer ALT/SGPT 22 U/L (13-56); Albumin, Serum 3.1 g/dL (3.2-5.0); Alkaline Phosphatase 49 U/L (45-117); Anion Gap 7 (5-15); BUN 8 mg/dL (7-18); BUN/Creat Ratio 12.3 RATIO (10-20); Calcium,Total 8.8 mg/dL (8.5-10.1); Chloride 106 mmol/L (98-107); Cholesterol 245 mg/dL (200); Creatinine, Serum 0.65 mg/dL (0.55-1.02); EST Glomerular Filtration Rate 115 mL/min (>60); Est Glom Filt Rate - Afr Amer 139 mL/min (>60); Globulin 4.5 g/dL (2.2-4.2); Glucose 99 mg/dL (74-106); High Density Lipoprotein 43 mg/dL; Potassium 3.7 mmol/L (3.5-5.1); Protein, Total 7.6 g/dL (6.4-8.2); Sodium Level 137 mmol/L (136-145); Triglycerides 216 mg/dL; Very Low Density Lipoprotein 43 mg/dL (5-40)
== END | disposition home or self-care (01) ==
LOC: LAB 10:17
PROVIDERS: PCP Internal Medicine; Referring Provider Internal Medicine; Visit Provider Internal Medicine
DX: Z13.6 Encounter for screening for cardiovascular disorders (principal); F41.9 Anxiety disorder, unspecified; F32.9 Major depressive disorder, single episode, unspecified
CPT/HCPCS: 36415; 80053; 80061; 85025

== ENCOUNTER → 2024-05-10 | Outpatient (CLI) | payer MEDICAID, SELFPAY ==
[2024-05-10 15:50] LABS: ALB/GLOB Ratio 0.7 RATIO (0.9-2.4); AST(SGOT) 13 U/L (15-37); Alanine Aminotransfer ALT/SGPT 19 U/L (13-56); Albumin, Serum 3.2 g/dL (3.2-5.0); Alkaline Phosphatase 59 U/L (45-117); Anion Gap 6 (5-15); BUN 10 mg/dL (7-18); BUN/Creat Ratio 13.8 RATIO (10-20); Calcium,Total 9.1 mg/dL (8.5-10.1); Chloride 107 mmol/L (98-107); Cholesterol 231 mg/dL (200); Creatinine, Serum 0.73 mg/dL (0.55-1.02); EST Glomerular Filtration Rate 101 mL/min (>60); Est Glom Filt Rate - Afr Amer 122 mL/min (>60); Globulin 4.8 g/dL (2.2-4.2); Glucose 132 mg/dL (74-106); High Density Lipoprotein 38 mg/dL; Potassium 3.7 mmol/L (3.5-5.1); Sodium Level 137 mmol/L (136-145); Triglycerides 298 mg/dL; Very Low Density Lipoprotein 60 mg/dL (5-40)
== END | disposition home or self-care (01) ==
LOC: BIMLAB 13:45
PROVIDERS: PCP Internal Medicine; Referring Provider Internal Medicine; Visit Provider Internal Medicine
DX: E78.5 Hyperlipidemia, unspecified (principal)
CPT/HCPCS: 36415; 80053; 80061

== ENCOUNTER → 2024-11-02 | Outpatient (CLI) | payer MEDICAID, SELFPAY ==
[2024-11-02 13:02] LABS: Cholesterol 229 mg/dL (<=200); High Density Lipoprotein 45 mg/dL; Low Density Lipoprotein Calc. 159 mg/dL; Triglycerides 127 mg/dL; Very Low Density Lipoprotein 25 mg/dL (5-40); cholesterol:hdl ratio screen 5.11
== END | disposition home or self-care (01) ==
LOC: BIMLAB 08:52
PROVIDERS: PCP Internal Medicine; Referring Provider Internal Medicine; Visit Provider Internal Medicine
DX: E78.5 Hyperlipidemia, unspecified (principal)
CPT/HCPCS: 36415; 80061

== ENCOUNTER → 2025-05-17 | Outpatient (CLI) | payer MEDICAID, SELFPAY ==
[2025-05-17 12:37] LABS: Hematocrit 38.3 % (37-47); Hemoglobin 12.4 g/dL (12.0-15.0); Immature Granulocytes Count 0.040 X10^3/uL (0.0-0.0); Mean Corp Hgb Conc 32.4 g/dL (32-36); Mean Corpuscular Volume 84.4 fL (81-99); Mean Platelet Vol. 10.8 fl (6.2-12.0); NRBC Flagged by Analyzer 0 % (0-5); Platelet Count 379 K/mm3 (150-450); RBC Distribution Width CV 14.0 % (11.6-14.6); RBC Distribution Width SD 42.6 fl (35.1-43.9); Red Blood Count 4.54 M/mm3 (4.2-5.4); White Blood Count 11.2 K/mm3 (4.4-11.0)
[2025-05-17 13:37] LABS: AST(SGOT) 22 U/L (<=31); Alanine Aminotransfer ALT/SGPT 17 U/L (<=34); Albumin, Serum 4.0 g/dL (3.5-5.0); Alkaline Phosphatase 62 U/L (35-104); Anion Gap 10 (7-18); BUN 9 mg/dL (4-19); BUN/Creat Ratio 15.8 RATIO (10-20); Calcium,Total 9.8 mg/dL (7.6-11.0); Carbon Dioxide 27.0 mmol/L (20.0-29.0); Chloride 104 mmol/L (96-106); Cholesterol 241 mg/dL (<=200); Globulin 3.6 g/dL (2.2-4.2); Glucose 104 mg/dL (70-99); Low Density Lipoprotein Calc. 155 mg/dL; Potassium 4.3 mmol/L (3.5-5.1); Triglycerides 249 mg/dL; Very Low Density Lipoprotein 50 mg/dL (5-40); cholesterol:hdl ratio screen 6.09
== END | disposition home or self-care (01) ==
LOC: LAB 11:29
PROVIDERS: PCP Internal Medicine; Referring Provider Internal Medicine; Visit Provider Internal Medicine
DX: E78.5 Hyperlipidemia, unspecified (principal)
CPT/HCPCS: 36415; 80053; 80061; 84439; 84443; 85025